=== PATIENT | female | born 1960 | race Caucasian/White ===

== ENCOUNTER → 2020-04-24 13:05 | Outpatient (BNVA) | payer OTHER, SELFPAY | PROVIDERS: PCP Internal Medicine; Visit Provider Urology | DX: Z76.89 Persons encountering health services in other specified circumstances (principal) ==

== ENCOUNTER → 2020-06-03 13:44 | Outpatient (BNVA) | payer OTHER, SELFPAY | PROVIDERS: PCP Internal Medicine; Visit Provider Urology | DX: Z76.89 Persons encountering health services in other specified circumstances (principal) ==

== ENCOUNTER 2020-06-10 15:59 | Outpatient (REF) | payer OTHER, SELFPAY | END 2020-06-10 16:00 | disposition home or self-care (01) | LOC: HO.LNP 15:59 | PROVIDERS: Visit Provider Internal Medicine | DX: Z20.828 Contact with and (suspected) exposure to other viral communicable diseases (principal) | CPT/HCPCS: U0003 ==

== ENCOUNTER 2020-06-17 06:28 | Day surgery (SDC) | payer OTHER, SELFPAY ==
[2020-06-09 20:56] VITALS: BMI 36.6
--- NOTE | 2020-06-16 10:06 | HO.ANESPROP2 ---
Documented by User: Gin Rehman 06/16/20 10:11 HPI - Anesthesia Eval Consult details Narrative: 59yo F for Pubovaginal Sling Covid exposure. Test 06/10/20 pending [facility] Past Medical History Medical History Anxiety Asthma Depression GERD (gastroesophageal reflux disease) HTN (hypertension) Surgical History Surgical History History of appendectomy History of endometrial ablation Social History Social History Smoking Status: Never smoker Use of substances other than those prescribed or required for medical reasons: No Advance Directives: No Advance Directives Information Provided: No Advance Directives on File: No Meds Allergies Allergy/AdvReac Type Severity Reaction Status Date / Time No Known Allergies Allergy Verified 06/09/20 20:55 [No Known Allergies*] Home Medications Medication Instructions Recorded Confirmed Type bupropion HCl 300 mg 24 hr tablet, 300 mg PO DAILY 06/03/20 06/09/20 History extended release irbesartan 75 mg tablet 37.5 mg PO DAILY 06/03/20 06/09/20 History lorazepam 0.5 mg tablet 0.5 mg PO BEDTIME PRN 06/03/20 06/09/20 History montelukast 10 mg tablet 10 mg PO DAILY 06/03/20 06/09/20 History omeprazole 20 mg capsule,delayed 20 mg PO DAILY 06/03/20 06/09/20 History release Exam Exam Date and Time: June 16, 2020 1006 Height,Weight and Vital Signs: Height 5 ft 4 in Weight 96.615 kg Narrative Narrative: ECHO 01/2020: Nml study Assessment and Plan Assessment Anesthesia Assessment: Chart Reviewed Documented by User: Karen Reyez 06/17/20 07:58 [facility] Past Medical History Medical History Anxiety Asthma Depression GERD (gastroesophageal reflux disease) HTN (hypertension) Surgical History Surgical History History of appendectomy History of endometrial ablation Social History Social History Smoking Status: Never smoker Use of substances other than those prescribed or required for medical reasons: No Advance Directives: No Advance Directives Information Provided: No Advance Directives on File: No Meds Allergies Allergy/AdvReac Type Severity Reaction Status Date / Time No Known Allergies Allergy Verified 06/09/20 20:55 [No Known Allergies*] Home Medications Medication Instructions Recorded Confirmed Type bupropion HCl 300 mg 24 hr tablet, 300 mg PO DAILY 06/03/20 06/09/20 History extended release irbesartan 75 mg tablet 37.5 mg PO DAILY 06/03/20 06/09/20 History lorazepam 0.5 mg tablet 0.5 mg PO BEDTIME PRN 06/03/20 06/09/20 History montelukast 10 mg tablet 10 mg PO DAILY 06/03/20 06/09/20 History omeprazole 20 mg capsule,delayed 20 mg PO DAILY 06/03/20 06/09/20 History release Exam Airway Mallampati Class: II TM Dist: >3cm Neck ROM: Full Assessment and Plan Assessment Anesthesia Assessment: Anesthesia Plan Discussed and Chart Reviewed Final Anesthetic Review NPO: Yes ASA Class: II Final Preanesthetic Review: No Changes in Pt Med Stat, Meds/Allgs Chart Reviewed, Consent Obtained/Reviewed and Anes Risks/Benef Reviewed Patient Risk: Low Procedure Risk: Low Assessment/Block/Sedation in SS: Assess/Block/Sedation-SS Anesthetic Plan Anesthetic Plan: MAC: Disposition: Standard PACU
[2020-06-17] VITALS (13 sets, daily range): BP systolic 97–124; BP diastolic 48–77; PULSE 64–88; RESP 16; TEMP 36.1–37.2; O2SAT 93–98
--- NOTE | 2020-06-17 07:29 | MHC.SHP ---
Pre-Procedural Eval Section A The patient is an INPATIENT: No The History & Physical has been completed within 30 days and I have reviewed it.: Yes Section B Chief Complaint: stress incontinence Allergies: Allergies Allergy/AdvReac Type Severity Reaction Status Date / Time No Known Allergies Allergy Verified 06/09/20 20:55 [No Known Allergies*] Plan Diagnosis/Plan: Unchanged I have reviewed the history and physical and performed a pertinent physical examination on my patient. No changes have occurred unless specified.
[2020-06-17] MEDS: Lactated Ringers 1,000 ML 100 ML IVCONT (07:33)
--- NOTE | 2020-06-17 08:40 | PM.OP ---
Brief Operative Note Date of Service: 06/17/20 Pre-op diagnosis: VENUS Procedure: pv sling mesh Implants: mesh sling Surgeon: Alfredo Blanco III, MD Anesthesia: GLMA Estimated blood loss (mL): 30 Pathology: none sent Condition: stable Disposition: same day
[2020-06-17] MEDS: Acetaminophen 325 MG TABLET 650 MG PO (09:08)
[2020-06-17] MEDS: oxyCODONE HCl Immed Release 5 MG TABLET PO ×2 (09:09→12:31)
[2020-06-17] MEDS: fentaNYL citrate/PF 100 MCG/2 ML VIAL 50 MCG IVPUSH (09:14)
--- NOTE | 2020-06-17 11:30 | HO.POSTANES ---
Post Anesthesia Evaluation Post Anesthesia Evaluation Vital Signs: Vital Signs Temp Pulse Resp BP Pulse Ox 06/17/20 10:35 66 16 118/75 98 06/17/20 10:20 64 16 111/75 97 06/17/20 09:49 97 F 65 16 108/60 97 06/17/20 09:35 73 16 107/50 L 95 06/17/20 09:19 69 16 97/52 L 93 06/17/20 09:14 70 16 101/58 L 95 06/17/20 09:05 72 16 113/58 L 95 06/17/20 09:00 75 16 105/48 L 95 06/17/20 08:55 72 16 97/54 L 95 06/17/20 08:50 97.9 F 70 16 103/52 L 95 06/17/20 07:08 99.0 F 88 16 117/71 96 Anesthesia: General LMA Mental Status: Awake Pain Control: Satisfactory Nausea/Vomiting: None Hydration: Adequate Anesthesia-Related Issues: No Anes. Related Issues
--- NOTE | 2020-10-03 10:42 | OP_ITS ---
SURGEON: Alfredo Blanco III, MD PREOPERATIVE DIAGNOSIS: Female stress urinary incontinence. POSTOPERATIVE DIAGNOSIS: Female stress urinary incontinence. PROCEDURE PERFORMED: Pubovaginal sling with mesh. ESTIMATED BLOOD LOSS: 30 mL. COMPLICATIONS: None. ANESTHESIA: General LMA. ASSISTANTS: SPECIMENS: DRAINS: None. PROCEDURE IN DETAIL: As follows, the patient was taken to the operating room. After adequate anesthesia was obtained, a time-out done demonstrating correct patient, correct procedure. The patient was placed in dorsal lithotomy position in slight Trendelenburg, had vaginal weighted speculum placed as well as a Mcalester retractor and a Gama catheter. At this point, local was injected to the anterior vaginal wall and then a midline incision was made and carried out laterally to but not through endopelvic fascia. Stab wounds were made suprapubically and under direct palpation of surgeon's finger, passers were passed from the stab wounds on the abdomen into the patient's vaginal incision. At this point, the Gama catheter was removed. The patient underwent flexible cystoscopy with retroflexion and no damage or penetration. The patient's bladder was identified. The patient had a Gama catheter placed, it was draining clear for the rest of the case. The patient then had the sling elevated into place with approximately 0.5 cm between the sling and the urethra. The patient had the sling truncated below the skin level. All incisions were closed. Vaginal pack placed. Gama catheter was removed at the end of the case. She tolerated the procedure well without any complications. MD JUAN JOSE Morris III/MODL / [id number]
== END 2020-06-17 12:59 | disposition home or self-care (01) ==
PROVIDERS: PCP Internal Medicine; Visit Provider Urology
PROC: (CPT 57288; principal; 2020-06-17 08:20)
DX: N39.3 Stress incontinence (female) (male) (principal); I10 Essential (primary) hypertension; J45.909 Unspecified asthma, uncomplicated; F32.9 Major depressive disorder, single episode, unspecified; Z79.899 Other long term (current) drug therapy
CPT/HCPCS: 57288; C1772; J1100; J1580; J1885; J2250; J2405; J3010

== ENCOUNTER → 2020-06-18 09:52 | Outpatient (BNVA) | payer OTHER, SELFPAY | PROVIDERS: PCP Internal Medicine; Visit Provider Urology | DX: Z76.89 Persons encountering health services in other specified circumstances (principal) ==

== ENCOUNTER → 2020-07-04 09:58 | Outpatient (BNVA) | payer OTHER, SELFPAY | PROVIDERS: Visit Provider Urology | DX: N39.3 Stress incontinence (female) (male) (principal) | CPT/HCPCS: 51798; 81002 ==

== ENCOUNTER 2020-08-01 13:58 | Outpatient (REF) | payer OTHER, SELFPAY ==
[2020-08-02 14:00] LABS: BV Int Neg Control Negative (Negative); BV Int Pos Control Positive (Positive)
== END 2020-08-01 13:59 | disposition home or self-care (01) ==
LOC: HO.LAB 13:58
PROVIDERS: Visit Provider Advanced Practice Midwife
DX: N76.0 Acute vaginitis (principal); B37.9 Candidiasis, unspecified
CPT/HCPCS: 87480; 87510; 87660

== ENCOUNTER 2020-09-15 16:54 | Outpatient (REF) | payer OTHER, SELFPAY ==
[2020-09-15 18:24] LABS: Glucose Urine UA NEG (NEG); Leukocyte Esterase Urine NEG (NEG); Nitrite Urine NEG (NEG); Specific Gravity - Urine 1.015 (1.005-1.025); Urine Blood NEG (NEG); Urine Ketones NEG (NEG); Urine Protein NEG (NEG-TRACE)
[2020-09-15 18:28] LABS: Appearance Urine CLEAR; Color Urine STRAW
[2020-09-15 18:40] LABS: Bacteria Urine TRACE /LPF; RBC Urine 0 /HPF (0); Squamous Epithelial Cell Urine TRACE /LPF; WBC Urine 0 /HPF (0-4)
== END 2020-09-15 16:55 | disposition home or self-care (01) ==
LOC: HO.LAB 16:54
PROVIDERS: PCP Internal Medicine; Visit Provider Urology
DX: N39.3 Stress incontinence (female) (male) (principal)
CPT/HCPCS: 81001; 87086

== ENCOUNTER → 2020-09-18 14:57 | Outpatient (BNVA) | payer OTHER, SELFPAY | PROVIDERS: PCP Internal Medicine; Visit Provider Urology | DX: R33.9 Retention of urine, unspecified (principal) | CPT/HCPCS: 51700 ==

== ENCOUNTER → 2020-09-23 12:52 | Outpatient (BNVA) | payer OTHER, SELFPAY | PROVIDERS: PCP Internal Medicine; Visit Provider Urology | DX: R33.9 Retention of urine, unspecified (principal) | CPT/HCPCS: 51700; 51798 ==

== ENCOUNTER → 2020-10-06 09:00 | Outpatient (BNVA) | payer OTHER, SELFPAY | PROVIDERS: PCP Internal Medicine; Visit Provider Obstetrics & Gynecology ==

== ENCOUNTER 2020-10-11 10:57 | Outpatient (REF) | payer OTHER, SELFPAY ==
--- NOTE | ~2020-10-11 | MM_ITS ---
EXAMINATION: MM SCREENING DIGITAL BREAST TOMOSYNTHESIS, BILATERAL CLINICAL INFORMATION: Screening. Asymptomatic. The lifetime risk of breast cancer based on the Tyrer-Cuzick Model is 13%. COMPARISON: Mammography: 07/02/2019, 04/05/2018, 06/18/2016 TECHNIQUE: Digital breast tomosynthesis is performed in both the craniocaudal and mediolateral oblique views along with computer-aided detection (CAD). Synthesized 2D images are generated from the tomosynthesis. FINDINGS: The breasts are almost entirely fatty (ACR BI-RADS breast composition Category a). There are no significant masses, abnormal calcifications, or other abnormalities. Background stromal densities are stable. The axilla and skin contours are unremarkable. MM/MM tomosynthesis screening BI IMPRESSION: No mammographic evidence of malignancy. ASSESSMENT: BI-RADS 1: Negative RECOMMENDATION: Routine annual mammography screening. This patient's information was entered into a reminder system with a target due date for their next mammogram.
== END 2020-10-11 10:58 | disposition home or self-care (01) ==
LOC: HO.MAMMO 10:57
PROVIDERS: PCP Internal Medicine; Visit Provider Obstetrics & Gynecology
DX: Z12.31 Encounter for screening mammogram for malignant neoplasm of breast (principal)
CPT/HCPCS: 77063; 77067

== ENCOUNTER → 2020-11-04 13:59 | Outpatient (BNVA) | payer OTHER, SELFPAY | PROVIDERS: PCP Internal Medicine; Visit Provider Urology | DX: R33.9 Retention of urine, unspecified (principal); R39.12 Poor urinary stream | CPT/HCPCS: 51798 ==

== ENCOUNTER 2020-11-16 15:32 | Emergency (ER) | payer OTHER, SELFPAY ==
[2020-11-16 15:37] VITALS: BP 157/89; PULSE 117; RESP 18; TEMP 36.9; O2SAT 97; BMI 36.6
[2020-11-16 16:06] LABS: Appearance Urine CLEAR; Color Urine YELLOW; Glucose Urine UA NEG (NEG); Leukocyte Esterase Urine NEG (NEG); Nitrite Urine NEG (NEG); Specific Gravity - Urine <= 1.005 (1.005-1.025); Urine Blood NEG (NEG); Urine Ketones NEG (NEG); Urine Protein NEG (NEG-TRACE)
== END 2020-11-16 20:59 | disposition left against medical advice (07) ==
LOC: HO.ED 20:37
PROVIDERS: Emergency Provider Emergency Medicine; PCP Internal Medicine
DX: R33.9 Retention of urine, unspecified (principal)
CPT/HCPCS: 81003; 99282; 99283

== ENCOUNTER 2020-11-24 12:12 | Day surgery (SDC) | payer OTHER, SELFPAY ==
--- NOTE | 2020-11-20 13:54 | HO.ANESPROP2 ---
Documented by User: Gin Rehman 11/20/20 13:55 HPI - Anesthesia Eval Consult details Narrative: 59yo F for cystoscopy with Lysis of Adhesions pubovaginal sling s/p PV sling 06/2020 with GA-LMA 3 PMFSH Active Problems Active Problems: All Active Problems (Updated 11/06/20 @ 16:01 by Kedar Knapp MD) Weak urinary stream (Acute) Well woman exam (Acute) Urinary retention with incomplete bladder emptying (Acute) Acute vaginitis (Acute) Stress incontinence in female (Acute) Past Medical History Medical History Anxiety Asthma Depression GERD (gastroesophageal reflux disease) HTN (hypertension) Surgical History Surgical History History of appendectomy History of endometrial ablation Social History Social History Alcohol intake: never Patient Tobacco Use Status: Never used Tobacco Use of substances other than those prescribed or required for medical reasons: No Are you DNR?: No Advance Directives: No Advance Directives Information Provided: Yes Gender identity: female Meds Allergies Allergy/AdvReac Type Severity Reaction Status Date / Time No Known Allergies Allergy Verified 11/24/20 12:25 [No Known Allergies*] Home Medications Medication Instructions Recorded Confirmed Last Taken Type bupropion HCl 300 mg 24 hr tablet, 300 mg PO DAILY 06/03/20 06/09/20 06/17/20 04:30 History extended release irbesartan 75 mg tablet 37.5 mg PO DAILY 06/03/20 06/09/20 06/17/20 04:30 History lorazepam 0.5 mg tablet 0.5 mg PO BEDTIME PRN 06/03/20 06/09/20 Unknown History montelukast 10 mg tablet 10 mg PO DAILY 06/03/20 06/09/20 Unknown History omeprazole 20 mg capsule,delayed 20 mg PO DAILY 06/03/20 06/09/20 06/17/20 04:30 History release albuterol sulfate 90 mcg/actuation 2 puff INHALATION Q4H PRN 07/04/20 Unknown History aerosol inhaler Exam Exam Date and Time: November 20, 2020 1354 Narrative Narrative: ECHO 01/2020: Nml study Assessment and Plan Assessment Anesthesia Assessment: Chart Reviewed Documented by User: Geraldine Bauer 11/24/20 13:04 PMF Past Medical History Medical History Anxiety Asthma Depression GERD (gastroesophageal reflux disease) HTN (hypertension) Family History Family history of problems with anesthesia: No Surgical History Surgical History History of appendectomy History of endometrial ablation History of Problems with Anesthesia: No Social History Social History Alcohol intake: never Patient Tobacco Use Status: Never used Tobacco Use of substances other than those prescribed or required for medical reasons: No Are you DNR?: No Advance Directives: No Advance Directives Information Provided: Yes Gender identity: female Meds Allergies Allergy/AdvReac Type Severity Reaction Status Date / Time No Known Allergies Allergy Verified 11/24/20 12:25 [No Known Allergies*] Home Medications Medication Instructions Recorded Confirmed Last Taken Type bupropion HCl 300 mg 24 hr tablet, 300 mg PO DAILY 06/03/20 06/09/20 06/17/20 04:30 History extended release irbesartan 75 mg tablet 37.5 mg PO DAILY 06/03/20 06/09/20 06/17/20 04:30 History lorazepam 0.5 mg tablet 0.5 mg PO BEDTIME PRN 06/03/20 06/09/20 Unknown History montelukast 10 mg tablet 10 mg PO DAILY 06/03/20 06/09/20 Unknown History omeprazole 20 mg capsule,delayed 20 mg PO DAILY 06/03/20 06/09/20 06/17/20 04:30 History release albuterol sulfate 90 mcg/actuation 2 puff INHALATION Q4H PRN 07/04/20 Unknown History aerosol inhaler Exam Height,Weight and Vital Signs: Vital Signs Temp Pulse Resp BP Pulse Ox 11/24/20 12:35 96.9 F 106 H 20 124/77 97 Airway Mallampati Class: II TM Dist: >3cm Neck ROM: Full Heart: RRR Lungs: CTAB Assessment and Plan Assessment Anesthesia Assessment: Anesthesia Plan Discussed and Chart Reviewed Final Anesthetic Review NPO: Yes ASA Class: II Final Preanesthetic Review: No Changes in Pt Med Stat, Meds/Allgs Chart Reviewed, Consent Obtained/Reviewed and Anes Risks/Benef Reviewed Patient Risk: Intermediate Procedure Risk: Low Assessment/Block/Sedation in SS: Assess/Block/Sedation-SS Anesthetic Plan Anesthetic Plan: GA Disposition: Standard PACU
--- NOTE | 2020-11-24 12:25 | MHC.SHP ---
Pre-Procedural Eval Section A The patient is an INPATIENT: No Changes since office visit: No Cold of Flu in the past 2 weeks, No New Medical Problems, No Changes in Medication and No Patient answered all questions The History & Physical has been completed within 30 days and I have reviewed it.: Yes Section B Chief Complaint: retension of urine Allergies: Allergies Allergy/AdvReac Type Severity Reaction Status Date / Time No Known Allergies Allergy Verified 11/24/20 12:25 [No Known Allergies*] Plan Diagnosis/Plan: Unchanged (Cystoscopy with lysis of pubovaginal sling) I have reviewed the history and physical and performed a pertinent physical examination on my patient. No changes have occurred unless specified.
[2020-11-24 12:35] VITALS: BP 124/77; PULSE 106; RESP 20; TEMP 36.1; O2SAT 97; BMI 36.8
[2020-11-24] MEDS: Lactated Ringers 1,000 ML 50 ML IVCONT (12:50)
[2020-11-24] MEDS: levoFLOXacin/D5W 500 MG/100 ML PIGGYBACK 100 MG IV (12:50)
--- NOTE | 2020-11-24 14:08 | P.OP_ITS ---
Operative Note Operative Note Date of Service: 11/24/20 Narrative: PreOperative Diagnosis: Incomplete bladder emptying following pubovaginal sling placement Post Operative Diagnosis: Incomplete bladder emptying following pubovaginal sling placement Procedure: Lysis of pubovaginal sling Surgeon: Dr Kedar Knapp Anesthesia: General Indications for procedure: This is a 59-year-old female. Pubovaginal sling procedure performed approximately 6 months ago. Minimal issues initially. Subsequently noticed weak stream and high residual under PVR. Recommendation to release sling. Risks and benefits including those related to incontinence been discussed. Procedure: After informed consent was verified the patient was brought to the operating r oom and placed in a supine position. Anesthesia was administered per protocol. Patient was placed in a modified dorsal lithotomy position prepped and draped in sterile fashion. She was placed in mild Trendelenburg position. A weighted speculum was placed. You could see mucosa up tenting in the mid urethral position. Submucosal injection of local anesthetic in the midline was performed. Using a 15 blade a 1/2 cm incision in the midline was developed. Flaps were elevated using the [place] with hooks. With careful dissection the sling was encountered. Off to the left side the sling was more easily dissected. The sling was isolated and cut in this position. After the release of the sling in mucosal incision was closed using a running 3- 0 Vicryl suture. Minimal bleeding was encountered. No packing was used. Pathology: None Drains: None
[2020-11-24 14:10] VITALS: BP 105/63; PULSE 60; RESP 12; TEMP 36.2; O2SAT 99
[2020-11-24 14:15] VITALS: BP 109/76; PULSE 75; RESP 14; O2SAT 95
[2020-11-24 14:20] VITALS: BP 111/87; PULSE 74; RESP 13; O2SAT 96
[2020-11-24 14:25] VITALS: BP 122/75; PULSE 76; RESP 16; O2SAT 94
[2020-11-24 14:40] VITALS: BP 124/77; PULSE 72; RESP 16; TEMP 36.7; O2SAT 96
[2020-11-24] MEDS: oxyCODONE HCl Immed Release 5 MG TABLET PO (14:56)
[2020-11-24] MEDS: Acetaminophen 325 MG TABLET 650 MG PO (14:57)
[2020-11-24] MEDS: ondansetron HCL 4 MG/2 ML VIAL IVPUSH (15:00)
== END 2020-11-24 16:25 | disposition home or self-care (01) ==
PROVIDERS: PCP Internal Medicine; Visit Provider Urology
PROC: 0TJB8ZZ Inspection of Bladder, Via Natural or Artificial Opening Endoscopic (ICD-10-PCS; CPT 52000; principal; 2020-11-24 14:00)
DX: R33.8 Other retention of urine (principal); R39.12 Poor urinary stream; N39.43 Post-void dribbling; I10 Essential (primary) hypertension; F32.9 Major depressive disorder, single episode, unspecified; Z79.899 Other long term (current) drug therapy
CPT/HCPCS: 57287; J1100; J1956; J2250; J2405; J3010

== ENCOUNTER 2020-12-19 17:13 | Outpatient (REF) | payer OTHER, SELFPAY ==
--- NOTE | ~2020-12-19 | XR_ITS ---
EXAMINATION: XR KNEE, RIGHT CLINICAL INFORMATION: Right knee pain. COMPARISON: None TECHNIQUE: Four views of the right knee. FINDINGS: Chronic lateral subluxation of the patella with severe joint space narrowing and bony remodeling. Mild medial and lateral compartment joint space narrowing. Prominent tricompartmental marginal osteophytes. Unfused osteophyte versus accessory ossicle superior to the patella. [id number] joint effusion. No acute fracture. 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 Unfused osteophyte versus loose body superior to the patella. Moderate medial and lateral compartment osteoarthritis. [id number]-[id number] joint effusion.
[2020-12-19 17:46] LABS: MANUAL DIFF FLAG NO
[2020-12-19 17:51] LABS: Basophils Percent Auto 0.4 % (0-2); Eosinophils Absolute Auto 0.2 X10*3/uL (0.0-0.4); Eosinophils Percent Auto 1.9 % (0-4); Hematocrit 43.2 % (37-47); Hemoglobin 13.8 g/dl (12.0-16.0); Imm Gran Abs Auto 0.04 X10*3/uL (0.00-0.03); Imm Gran Pct Auto 0.4 % (0.0-0.4); Lymphocytes Percent Auto 21.4 % (20-40); Mean Corpuscular HGB Conc 31.9 g/dl (31.0-35.0); Mean Corpuscular Hemoglobin 27.9 pg (27.0-33.0); Mean Corpuscular Volume 87.3 fL (80-98); Monocytes Absolute Auto 0.5 X10*3/uL (0.1-1.2); Monocytes Percent Auto 5.5 % (2-11); Neutrophils Absolute Auto 6.7 X10*3/uL (2.0-8.3); Neutrophils Percent Auto 70.4 % (45-73); Platelet Count 360 X10*3/uL (160-400); Red Blood Count 4.95 X10*6/uL (4.20-5.50); Red Cell Distribution Width 12.7 % (11.0-16.0); White Blood Count 9.5 X10*3/uL (4.8-10.8)
[2020-12-19 18:16] LABS: Anion Gap 13 (12-20); Blood Urea Nitrogen 11 mg/dL (9-16); C Reactive Protein 0.89 mg/dL (< or = 0.50); Calcium 9.7 mg/dL (8.4-10.2); Carbon Dioxide 25 mmol/L (22-29); Chloride 106 mmol/L (96-108); Estimated Glomerular Filt Rate 57; Glucose Random 124 mg/dL (60-115); Potassium 4.3 mmol/L (3.3-5.1); Sodium 140 mmol/L (135-145); Uric Acid 6.5 mg/dL (2.4-5.7)
== END 2020-12-19 17:14 | disposition home or self-care (01) ==
LOC: HO.XRAY 17:13
PROVIDERS: PCP Internal Medicine; Visit Provider Internal Medicine
DX: M25.561 Pain in right knee (principal); I10 Essential (primary) hypertension; J45.909 Unspecified asthma, uncomplicated
CPT/HCPCS: 36415; 73564; 80048; 84550; 85025; 86140

== ENCOUNTER → 2020-12-30 09:11 | Outpatient (BNVA) | payer OTHER, SELFPAY | PROVIDERS: Visit Provider Urology | DX: R33.9 Retention of urine, unspecified (principal) | CPT/HCPCS: 51798 ==

== ENCOUNTER → 2020-12-31 13:07 | Outpatient (BNVA) | payer OTHER, SELFPAY | PROVIDERS: Visit Provider Orthopaedic Surgery | DX: M17.11 Unilateral primary osteoarthritis, right knee (principal) | CPT/HCPCS: 20610; J1040 ==

== ENCOUNTER 2021-04-22 | Outpatient (REF) | payer OTHER, SELFPAY ==
[2021-04-22 06:53] LABS: Hematocrit 30.1 % (37.0-47.0); Hemoglobin 9.5 g/dl (12.0-16.0); Mean Corpuscular HGB Conc 31.6 g/dl (31.0-35.0); Mean Corpuscular Hemoglobin 28.5 pg (27.0-33.0); Mean Corpuscular Volume 90.4 fL (80.0-98.0); Mean Platelet Volume 9.6 fL (9.4-12.3); Platelet Count 296 X10*3/uL (160-400); Red Blood Count 3.33 X10*6/uL (4.20-5.50); Red Cell Distribution Width 13.1 % (11.0-16.0); White Blood Count 7.6 X10*3/uL (4.8-10.8)
[2021-04-22 06:57] LABS: INTERNATIONAL NORM RATIO 1.5 (0.9-1.1); Prothrombin Time 17.2 SEC (9.9-13.0)
== END 2021-04-22 00:01 | disposition home or self-care (01) ==
LOC: HO.MMNH1L
PROVIDERS: Visit Provider Family Medicine
DX: I10 Essential (primary) hypertension (principal); Z96.659 Presence of unspecified artificial knee joint
CPT/HCPCS: 36415; 85027; 85610

== ENCOUNTER 2021-04-24 13:48 | Outpatient (REF) | payer OTHER, SELFPAY ==
[2021-04-24 14:00] LABS: Hematocrit 31.1 % (37.0-47.0); Mean Corpuscular HGB Conc 32.2 g/dl (31.0-35.0); Mean Corpuscular Volume 90.1 fL (80.0-98.0); Mean Platelet Volume 9.1 fL (9.4-12.3); Platelet Count 363 X10*3/uL (160-400); Red Blood Count 3.45 X10*6/uL (4.20-5.50); Red Cell Distribution Width 13.3 % (11.0-16.0)
[2021-04-24 14:05] LABS: INTERNATIONAL NORM RATIO 1.3 (0.9-1.1); Prothrombin Time 14.5 SEC (9.9-13.0)
[2021-04-24 14:13] LABS: Alanine Aminotransferase 81 U/L (0-31); Albumin Level 3.3 g/dL (3.5-5.0); Alkaline Phosphatase 214 U/L (39-117); Anion Gap 12 (12-20); Aspartate Amino Transferase 46 U/L (5-31); Bilirubin Total 0.8 mg/dL (0.0-1.0); Blood Urea Nitrogen 8 mg/dL (9-16); Calcium 8.3 mg/dL (8.4-10.2); Carbon Dioxide 27 mmol/L (22-29); Chloride 104 mmol/L (96-108); Estimated Glomerular Filt Rate > 60; Glucose Random 116 mg/dL (60-115); Potassium 3.9 mmol/L (3.3-5.1); Sodium 139 mmol/L (135-145); Total Protein 5.9 g/dL (6.5-8.0)
== END 2021-04-24 13:49 | disposition home or self-care (01) ==
LOC: HO.MMNH1L 13:48
PROVIDERS: Visit Provider Family Medicine
DX: Z96.651 Presence of right artificial knee joint (principal)
CPT/HCPCS: 36415; 80053; 85027; 85610

== ENCOUNTER 2021-04-27 07:18 | Outpatient (REF) | payer OTHER, SELFPAY ==
[2021-04-27 07:41] LABS: Hematocrit 30.7 % (37.0-47.0); Hemoglobin 9.7 g/dl (12.0-16.0); Mean Corpuscular HGB Conc 31.6 g/dl (31.0-35.0); Mean Corpuscular Hemoglobin 28.9 pg (27.0-33.0); Mean Corpuscular Volume 91.4 fL (80.0-98.0); Mean Platelet Volume 9.4 fL (9.4-12.3); Platelet Count 351 X10*3/uL (160-400); Red Blood Count 3.36 X10*6/uL (4.20-5.50); Red Cell Distribution Width 13.7 % (11.0-16.0); White Blood Count 6.7 X10*3/uL (4.8-10.8)
[2021-04-27 07:45] LABS: INTERNATIONAL NORM RATIO 2.4 (0.9-1.1); Prothrombin Time 27.4 SEC (9.9-13.0)
[2021-04-27 07:54] LABS: Anion Gap 11 (12-20); Blood Urea Nitrogen 6 mg/dL (9-16); Calcium 8.4 mg/dL (8.4-10.2); Carbon Dioxide 28 mmol/L (22-29); Chloride 107 mmol/L (96-108); Estimated Glomerular Filt Rate > 60; Glucose Random 96 mg/dL (60-115); Potassium 3.6 mmol/L (3.3-5.1); Sodium 142 mmol/L (135-145)
== END 2021-04-27 07:19 | disposition home or self-care (01) ==
LOC: HO.MMNH1L 07:18
PROVIDERS: Visit Provider Family Medicine
DX: Z96.651 Presence of right artificial knee joint (principal)
CPT/HCPCS: 36415; 80048; 85027; 85610

== ENCOUNTER 2021-04-29 | Outpatient (REF) | payer OTHER, SELFPAY ==
[2021-04-29 06:51] LABS: INTERNATIONAL NORM RATIO 2.9 (0.9-1.1); Prothrombin Time 33.5 SEC (9.9-13.0)
== END 2021-04-29 00:01 | disposition home or self-care (01) ==
LOC: HO.MMNH1L
PROVIDERS: Visit Provider Family Medicine
DX: Z96.659 Presence of unspecified artificial knee joint (principal)
CPT/HCPCS: 36415; 85610

== ENCOUNTER 2021-05-04 01:01 | Outpatient (REF) | payer OTHER, SELFPAY | END 2021-05-04 01:02 | disposition home or self-care (01) | LOC: HO.MMNH1L 01:01 | PROVIDERS: Visit Provider Family Medicine | DX: Z13.89 Encounter for screening for other disorder (principal) ==

== ENCOUNTER → 2021-07-30 11:09 | Outpatient (BNVA) | payer OTHER, SELFPAY | PROVIDERS: PCP Internal Medicine; Visit Provider Urology | DX: R33.9 Retention of urine, unspecified (principal) | CPT/HCPCS: 51798 ==

== ENCOUNTER 2021-12-28 16:03 | Outpatient (REF) | payer OTHER, SELFPAY ==
--- NOTE | ~2021-12-28 | MM_ITS ---
EXAMINATION: MM SCREENING DIGITAL BREAST TOMOSYNTHESIS, BILATERAL CLINICAL INFORMATION: Screening. Asymptomatic. The lifetime risk of breast cancer based on the Tyrer-Cuzick Model is 14%. COMPARISON: Mammography: 10/11/2020, 07/02/2019, 04/05/2018 TECHNIQUE: Digital breast tomosynthesis is performed in both the craniocaudal and mediolateral oblique views along with computer-aided detection (CAD). Synthesized 2D images are generated from the tomosynthesis. FINDINGS: The breasts are almost entirely fatty (ACR BI-RADS breast composition Category a). There are no significant masses, abnormal calcifications, or other abnormalities. Background stromal markings are normal. The axilla are unremarkable. MM/MM tomosynthesis screening BI IMPRESSION: No mammographic evidence of malignancy. ASSESSMENT: BI-RADS 1: Negative RECOMMENDATION: Routine annual mammography screening. This patient's information was entered into a reminder system with a target due date for their next mammogram.
== END 2021-12-28 16:04 | disposition home or self-care (01) ==
LOC: HO.MAMMO 16:03
PROVIDERS: Visit Provider Obstetrics & Gynecology
DX: Z12.31 Encounter for screening mammogram for malignant neoplasm of breast (principal)
CPT/HCPCS: 77063; 77067

== ENCOUNTER → 2022-01-07 10:40 | Outpatient (BNVA) | payer OTHER, SELFPAY | PROVIDERS: PCP Internal Medicine; Visit Provider Urology | DX: N94.9 Unspecified condition associated with female genital organs and menstrual cycle (principal) | CPT/HCPCS: 51798 ==

== ENCOUNTER 2022-01-20 11:52 | Outpatient (REF) | payer OTHER, SELFPAY ==
[2022-01-21 06:41] LABS: CT PCR NOT DETECTED (Not Detect.); NG PCR NOT DETECTED (Not Detect.)
== END 2022-01-20 11:53 | disposition home or self-care (01) ==
LOC: HO.LAB 11:52
PROVIDERS: PCP Internal Medicine; Visit Provider Obstetrics & Gynecology
DX: Z11.3 Encounter for screening for infections with a predominantly sexual mode of transmission (principal); R10.2 Pelvic and perineal pain
CPT/HCPCS: 81003; 87491; 87591

== ENCOUNTER → 2022-02-04 10:02 | Outpatient (BNVA) | payer OTHER, SELFPAY | PROVIDERS: Visit Provider Urology | DX: R33.9 Retention of urine, unspecified (principal); N94.9 Unspecified condition associated with female genital organs and menstrual cycle; N39.3 Stress incontinence (female) (male) | CPT/HCPCS: 51798 ==

== ENCOUNTER 2022-03-12 15:29 | Outpatient (REF) | payer OTHER, SELFPAY ==
--- NOTE | ~2022-03-12 | US_ITS ---
EXAMINATION: US PELVIS CLINICAL INFORMATION: Pelvic and perineal pain COMPARISON: Previous pelvic ultrasound January 2018 TECHNIQUE: Ultrasound of the pelvis is performed using both transabdominal and transvaginal transducers along with Doppler. Transvaginal imaging is performed due to inadequate visualization transabdominally. FINDINGS: The uterus is anteverted and measures 8.5 x 3.2 x 4.9 cm in dimension. No focal uterine lesion is seen. Endometrial thickness is thickened for postmenopausal patient measuring 1 cm. There are nabothian cysts in the cervix. The ovaries are not seen. There is no fluid in the pelvis. US/US pelvic and transvaginal IMPRESSION: Thickened endometrium for a postmenopausal patient measuring 1 cm. Ovaries not seen.
== END 2022-03-12 15:30 | disposition home or self-care (01) ==
LOC: HO.US 15:29
PROVIDERS: Visit Provider Obstetrics & Gynecology
DX: R10.2 Pelvic and perineal pain (principal)
CPT/HCPCS: 76830; 76856

== ENCOUNTER 2022-04-19 15:33 | Outpatient (REF) | payer OTHER, SELFPAY ==
[2022-04-19 15:52] LABS: MANUAL DIFF FLAG NO
[2022-04-19 16:12] LABS: Basophils Absolute Auto 0.1 X10*3/uL (0.0-0.2); Basophils Percent Auto 0.7 % (0-2); Eosinophils Absolute Auto 0.2 X10*3/uL (0.0-0.4); Hematocrit 44.5 % (37.0-47.0); Hemoglobin 14.3 g/dl (12.0-16.0); Imm Gran Abs Auto 0.03 X10*3/uL (0.00-0.03); Imm Gran Pct Auto 0.4 % (0.0-0.4); Lymphocytes Absolute Auto 1.9 X10*3/uL (1.2-4.9); Lymphocytes Percent Auto 25.3 % (20-40); Mean Corpuscular HGB Conc 32.1 g/dl (31.0-35.0); Mean Corpuscular Volume 87.1 fL (80.0-98.0); Monocytes Absolute Auto 0.5 X10*3/uL (0.1-1.2); Monocytes Percent Auto 6.1 % (2-11); Neutrophils Percent Auto 64.5 % (45-73); Platelet Count 324 X10*3/uL (160-400); Red Blood Count 5.11 X10*6/uL (4.20-5.50); Red Cell Distribution Width 12.4 % (11.0-16.0); White Blood Count 7.7 X10*3/uL (4.8-10.8)
[2022-04-19 16:43] LABS: Alanine Aminotransferase 25 U/L (0-31); Alkaline Phosphatase 100 U/L (39-117); Anion Gap 13 (12-20); Aspartate Amino Transferase 17 U/L (5-31); Bilirubin Total 0.3 mg/dL (0.0-1.0); Blood Urea Nitrogen 13 mg/dL (9-16); C Reactive Protein 0.59 mg/dL (< or = 0.50); Calcium 9.3 mg/dL (8.4-10.2); Carbon Dioxide 25 mmol/L (22-29); Chloride 106 mmol/L (96-108); Estimated Glomerular Filt Rate > 60; Glucose Random 119 mg/dL (60-115); Potassium 4.2 mmol/L (3.3-5.1); Sodium 140 mmol/L (135-145); Total Protein 7.4 g/dL (6.5-8.0)
== END 2022-04-19 15:34 | disposition home or self-care (01) ==
LOC: HO.LAB 15:33
PROVIDERS: Visit Provider Internal Medicine
DX: I10 Essential (primary) hypertension (principal); K21.9 Gastro-esophageal reflux disease without esophagitis; R30.0 Dysuria
CPT/HCPCS: 36415; 80053; 85025; 86140

== ENCOUNTER → 2022-07-23 13:30 | Outpatient (BNVA) | payer OTHER, SELFPAY | PROVIDERS: PCP Internal Medicine; Visit Provider Nurse Practitioner Family | DX: N39.3 Stress incontinence (female) (male) (principal); R33.9 Retention of urine, unspecified | CPT/HCPCS: 51798 ==

== ENCOUNTER 2022-08-05 16:57 | Outpatient (REF) | payer OTHER, SELFPAY ==
--- NOTE | ~2022-08-05 | XR_ITS ---
EXAMINATION: XR CERVICAL SPINE CLINICAL INFORMATION: Neck pain. COMPARISON: None TECHNIQUE: 6 views of the cervical spine, inclusive of flexion and extension views, were obtained. FINDINGS: There is mild straightening of cervical lordosis. The vertebral heights and alignment is normal. There is loss of C5-C6 and C6-C7 disc heights with mild ventral spondylosis. The rest of the disc heights are normal. The craniovertebral junction and the C1-C2 alignment is normal. There is C5-C6 and C6-C7 disc level bilateral uncovertebral hypertrophic changes narrowing the neural foramina. Findings are slightly more prominent on the right. The neural foramina are widely patent. The prevertebral soft tissues are normal. XR/XR cervical spine min 6V IMPRESSION: Degenerative disc changes with ventral spondylosis C5-C6 and C6-C7 disc levels. There is moderate narrowing of right neural foramina at these disc levels. No visible acute fracture or dislocation seen.
== END 2022-08-05 16:58 | disposition home or self-care (01) ==
LOC: HO.XRAY 16:57
PROVIDERS: PCP Internal Medicine; Visit Provider Internal Medicine
DX: M54.2 Cervicalgia (principal)
CPT/HCPCS: 72052

== ENCOUNTER 2022-08-09 08:00 | Outpatient (RCR) | payer OTHER, SELFPAY ==
[2022-06-03 13:08] VITALS: BP 130/79; PULSE 100
--- NOTE | 2022-06-03 13:53 | MHC.PT.EP ---
[facility] [place] Office [place] Office [place] Office [address] Dionne Ojeda [address] [phone] F: [phone] F: [phone] F: [phone] F: [phone] Physical Therapy Plan of Care Date of Evaluation: Date of Surgery: NA Diagnosis: Sciatica, L side Assessment: Joana is a 61 year old female who is referred to PT for sciatica L side . She reports of having sudden onset of pain in L SI region about 6 months back. She also reports of having tingling and numbess in L LE. She denies having any trauma or falls. On PT examination she presented with 5/10 pain with standing and walking, presented with decreased trunk ROM, decreased muscle strength, altered posture, altered pelvic symmetry and impaired gait. She is independent with all ADLs but has pain with them and takes longer to complete them. She would benefit from skilled PT to address the aforementioned impairments and improve tolerance to functional activities. Frequency and Duration: The patient will be seen 2/week for 5 weeks Short Term Goals: 1. Pt will have 50% decrease in pain which will enable to stand and cook for 30 minutes in 2 weeks. 2. Pt will be able to move her trunk through all planes of motion without pain which will enable her to dress in 3 weeks. 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 Pt will demonstrate an increase in muscle strength by 1 grade which will enable to return to walking without pain in 4 weeks. 2. Pt will be independent with [facility] for symptom management and maintenance following d/c in 5 weeks Treatment Plan: Modalities to reduce pain, spasms and effusion. Manual therapy to restore motion and function. Therapeutic exercise to improve strength and flexibility. Neuromuscular re-education for posture and balance. Therapeutic activities to return to functional activities of daily living. Electronically signed by: Mar Hill PT DPT Please sign and return to therapist. Thank you for your referral.
--- NOTE | 2022-08-09 08:53 | MHC.PT.DC ---
[facility] [place] Office [place] Office [place] Office [address] Dionne Ojeda [address] [phone] F: [phone] F: [phone] F: [phone] F: [phone] Physical Therapy Discharge Report Diagnosis: Sciatica, L side Date of Surgery: NA Date of Evaluation: 06/03/22 Date of Discharge: 08/09/22 Treatments to Date: 10 Cancellations to Date: 1 No Shows to Date: 0 Discharge Status: Achieved Goals Improved Function Independent with HEP Discharge Summary: Joana has completed 10 PT visits. Her L SI pain appears to be secondary to weakness in R LE. She noted improvements in L SI pain with exercises to strengthening R LE. She has made significant improvements and has achieved all goals set for her. She is therefore being d.c from PT today. Joana was in agreement with the plan. Electronically signed by: Mar Hill, PT DPT Please sign and return to therapist. Thank you for your referral.
== END 2022-08-09 08:58 | disposition home or self-care (01) ==
LOC: HO.PT 08:00
PROVIDERS: PCP Internal Medicine; Visit Provider Internal Medicine
DX: M54.32 Sciatica, left side (principal)
CPT/HCPCS: 97110; 97140; 97161; 97530

== ENCOUNTER 2022-08-24 14:15 | Outpatient (REF) | payer OTHER, SELFPAY ==
--- NOTE | ~2022-08-24 | US_ITS ---
EXAMINATION: US EXTRACRANIAL CAROTID DUPLEX, BILATERAL CLINICAL INFORMATION: Dizziness. COMPARISON: None available. TECHNIQUE: Real-time ultrasound and Doppler techniques (integrating B-mode 2-D vascular images, Doppler spectral analysis and color-flow Doppler imaging) were utilized to interrogate the extracranial carotid arteries, the vertebral arteries and proximal subclavian arteries bilaterally. The degree of stenosis is determined by criteria similar to NASCET. FINDINGS: RIGHT SIDE: 1. There is no significant atherosclerotic plaque seen in the bifurcation/proximal ICA region. 2. The common carotid artery PSV proximally is 79 cm/s and distally 71 cm/s. 3. The proximal internal carotid artery velocities are 49 cm/s systolic and 10 cm/s diastolic. 4. The proximal external carotid artery PSV is 85 cm/s. 5. The vertebral artery shows antegrade flow. 6. The subclavian artery waveforms are normal. LEFT SIDE: 1. There is no significant atherosclerotic plaque seen in the bifurcation/proximal ICA region. 2. The common carotid artery PSV proximally is 76 cm/s and distally 72 cm/s. 3. The proximal internal carotid artery velocities are 109 cm/s systolic and 39 cm/s diastolic. 4. The proximal external carotid artery PSV is 98 cm/s. 5. The vertebral artery shows antegrade flow. 6. The subclavian artery waveforms are normal. US/US carotid duplex BI IMPRESSION: 1. RIGHT: Normal right internal carotid artery without atherosclerotic plaque or hemodynamically significant stenosis. 2. LEFT: Normal left internal carotid artery without atherosclerotic plaque or hemodynamically significant stenosis.
== END 2022-08-24 14:16 | disposition home or self-care (01) ==
LOC: HO.US 14:15
PROVIDERS: PCP Internal Medicine; Visit Provider Internal Medicine
DX: M54.2 Cervicalgia (principal); R42 Dizziness and giddiness
CPT/HCPCS: 93880

== ENCOUNTER 2023-04-12 09:38 | Outpatient (AMB) | payer OTHER, SELFPAY ==
--- NOTE | 2023-04-12 09:41 | A.OFFVIS_ITS ---
Intake Vital Signs 04/12/23 09:43 Height 5 ft 4 in Weight 207 lb BMI 35.5 BP 110/70 Intake Visit Reasons: PMB Intake Note: c/o of vaginal bleeding x 6 days Pipe Processor Required: No Information Interpreted: non-clinical & clinical President And Chief Commercial Officer: President And Chief Commercial Officer Present (Cherrie CARLOS) Accompanied by: Self / Same As Patient Allergies No Known Allergies [No Known Allergies*] Allergy (Verified 04/12/23 09:44) Is last menstrual period known: Yes Last menstrual period: 04/03/20 Post menopausal: Yes Patient : No Do you need a note to return to daycare/school/sports/work: Yes (for surgery on tuesday) HPI HPI Comments History of Present Illness Details Presenting after an episode of vaginal bleeding. Pelvic Ultrasound done in 03/27 showed endometrial thickness of 1 cm, last co testing was ascus/HPV negative in 03/2018, colpo biopsy was negative PFS Medical History Stress incontinence GERD (gastroesophageal reflux disease) Depression Anxiety Asthma HTN (hypertension) Surgical History Total knee replacement status History of suburethral sling procedure History of appendectomy History of endometrial ablation Social History Alcohol intake: never Patient Tobacco Use Status: Never used Tobacco Current occupational status: unemployed 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 Gender identity: Female Female Reproductive History Menstrual Age of Menarche: 14 Date of last menstrual period: 04/03/20 Total pregnancies: 2 Full term: 2 Review of Systems Const All systems reviewed & are unremarkable except as noted in HPI and below Card Reports as per HPI and Reports no additional complaints Resp Reports as per HPI and Reports no additional complaints GI Reports as per HPI and Reports no additional complaints Reports as per HPI Physical Exam Vital Signs: Last Vital Signs BP 110/70 04/12/23 09:43 BMI result Body Mass Index 35.5 Const General: cooperative, healthy appearing and comfortable Chest Chest palpation & inspection: normal inspection of the chest and normal p alpation of entire chest wall Breast/axilla inspection: normal inspection of the breasts and normal inspection of the axillae Breast/axilla palpation: normal palpation of the breasts, normal palpation of the axillae and no axillary lymphadenopathy Resp Effort & Inspection: normal respiratory effort Auscultation: clear to auscultation bilaterally Percussion: percussion normal Cardio Palpation: normal PMI Rate: regular rate Rhythm: regular rhythm Heart sounds: no murmurs and no rubs Peripheral pulses: Peripheral pulses 2+ throughout GI Inspection: Yes normal to inspection Palpation (GI): Soft to palpation, nontender, no guarding, not rigid and No hepatosplenomegaly present Percussion: Yes normal to percussion Auscultation: normal bowel sounds Rectal Exam - Female: deferred General: Yes no CVA tenderness External Female Exam: normal external appearance and normal appearance of the urethra Speculum Exam - Vagina: normal appearance of the vagina, normal palpation, no lesions and no masses Speculum Exam - Cervix: normal appearance of the cervix, normal palpation, no lesions, no masses, nontender and Other cervical findings present (Endocervical polyp) Bimanual exam- vagina & uterus: normal bimanual exam, normal palpation, uterine size normal, normal palpation, uterine shape normal, No Cervical tenderness present and non-tender Bimanual Exam- Adnexa, other: normal adnexae Back/Spine/Pelvis Back: no CVA tenderness Assessment & Plan Assessment & Plan (1) Postmenopausal bleeding: Comment: 1 cm endometrial stripe in 03/27 ultrasound Endocervical polyp on exam h/o endo ablation Code(s): N95.0 - Postmenopausal bleeding Plan: Discussed with the patient the differential diagnosis of post menopausal bleeding with normal pelvic exam including but not limited to, endometrial hyperplasia, cancer, polyps and other causes; co testing done, Discussed with the patient the pelvic ultrasound findings done in 03/27, the endometrial stripe thickenss measured by ultrasound was more than 4mm. The negative predictive value, positive predictive value, Sensitivity, specificity of using ultrasound measurement of endometrial stripe to detecting endometrial pathology including hyperplasia , polyp or cancer were discussed with the patient. Recommended to the patient that the next step is an endometrial sampling via hysteroscopy D&C possible polypectomy versus endometrial biopsy to r/o endometrial pathology including hyperplasia or cancer. All the pros and cons risks and benefits of each approach were discussed with the patient, endometrial biopsy being less invasive, office procedure with less sensitivity and inability diagnose a polyp and removal versus hysteroscopy done under anesthesia more invasive more sensitive to endometrial cancer and possibility of diagnosing and endometrial polyp with the possibility of polypectomy. All questions were answered pt verbalized understanding and decided to proceed with hysteroscopy D&C possible polypectomy/myomectomy. Discussed with the patient the procedure , all benefits and risks including but not limited to inability to complete the procedure , bleeding, infection, possi ble need for blood transfusion with all its risk ( HIV,syphilis, Hepatitis, anaphylaxis shock, others..), injury to bladder, rectum, possible need for laparoscopy/laparotomy or hysterectomy. The patient verbalized understanding and signed the consent. Instructions given the patient to schedule a 2 week postoperative appointment Orders: Orders Pap Smear Today N95.0 - Postmenopausal bleeding Coding Level of Care Code Est Pt Level 3 (68161) Diagnoses Postmenopausal bleeding N95.0
[2023-04-12 09:43] VITALS: BP 110/70; BMI 35.5
== END 2023-04-12 10:22 | disposition home or self-care (01) ==
LOC: HO.HWS 09:38
PROVIDERS: PCP Internal Medicine; Visit Provider Obstetrics & Gynecology
DX: N95.0 Postmenopausal bleeding (principal)
CPT/HCPCS: 99213

== ENCOUNTER 2023-04-12 09:38 | Outpatient (REF) | payer OTHER, SELFPAY ==
[2023-04-15 03:53] LABS: HPV mRNA E6/E7 rflx Not Detected (Not Detected)
== END 2023-04-12 09:39 | disposition home or self-care (01) ==
LOC: HO.LNP 09:38
PROVIDERS: PCP Internal Medicine; Visit Provider Obstetrics & Gynecology
DX: Z12.4 Encounter for screening for malignant neoplasm of cervix (principal); Z11.51 Encounter for screening for human papillomavirus (HPV); N95.0 Postmenopausal bleeding
CPT/HCPCS: 87624; 88142

== ENCOUNTER 2023-04-26 11:21 | Day surgery (SDC) | payer OTHER, SELFPAY ==
[2023-04-26 12:13] VITALS: BMI 35.7
[2023-04-26 12:25] VITALS: BP 148/88; PULSE 101; RESP 18; TEMP 36.7; O2SAT 97
[2023-04-26] MEDS: Lactated Ringers 1,000 ML 80 ML IVCONT (12:30)
--- NOTE | 2023-04-26 12:44 | MHC.SHP ---
Pre-Procedural Eval Section A Date of Service: 04/26/23 The patient is an INPATIENT: No Changes since office visit: No Cold of Flu in the past 2 weeks, No New Medical Problems, No Changes in Medication and No Patient answered all questions The History & Physical has been completed within 30 days and I have reviewed it.: Yes Section B Chief Complaint: Postmenopausal bleeding Allergies: Allergies Allergy/AdvReac Type Severity Reaction Status Date / Time No Known Allergies Allergy Verified 04/26/23 12:25 [No Known Allergies*] Plan Diagnosis/Plan: Unchanged I have reviewed the history and physical and performed a pertinent physical examination on my patient. No changes have occurred unless specified. Time Spent With Patient Time: Total time managing care of this patient today ____ minutes.
--- NOTE | 2023-04-26 13:21 | HO.ANESPROP2 ---
HPI - Anesthesia Eval Consult details Narrative: 62 F for Hysteroscopy, Dilataion & Curettage PMF Active Problems Active Problems: All Active Problems (Updated 04/12/23 @ 10:43 by Willi Ramirez MD) Postmenopausal bleeding (Acute) Endometrial thickening on ultrasound (Acute) Pelvic pain (Acute) Pain of female symphysis pubis (Acute) Primary osteoarthritis of right knee (Acute) Weak urinary stream (Acute) Well woman exam (Acute) Urinary retention with incomplete bladder emptying (Acute) Acute vaginitis (Acute) Stress incontinence in female (Acute) Past Medical History Medical History Stress incontinence GERD (gastroesophageal reflux disease) Depression Anxiety Asthma HTN (hypertension) Functional capacity: independent ambulation Family History Family history of problems with anesthesia: No Surgical History Surgical History Total knee replacement status History of suburethral sling procedure History of appendectomy History of endometrial ablation History of Problems with Anesthesia: No Social History Alcohol intake: never Patient Tobacco Use Status: Never used Tobacco Current occupational status: unemployed 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 Gender identity: Female Meds Allergies Allergy/AdvReac Type Severity Reaction Status Date / Time No Known Allergies Allergy Verified 04/26/23 12:25 [No Known Allergies*] Active Medications: Current Medications Lactated Ringer's (Lr) 1,000 mls @ 80 mls/hr IVCONT .[id number] MARVA Last Admin: 04/26/23 12:30 Dose: 80 mls/hr Home Medications Medication Instructions Recorded Confirmed Last Taken Type bupropion HCl 300 mg 24 hr tablet, 300 mg PO DAILY 06/03/20 04/26/23 06/17/20 04:30 History extended release irbesartan 75 mg tablet 37.5 mg PO DAILY 06/03/20 04/26/23 04/26/23 History lorazepam 0.5 mg tablet 0.5 mg PO BEDTIME PRN Anxiety 06/03/20 04/26/23 Unknown History omeprazole 20 mg capsule,delayed 20 mg PO DAILY 06/03/20 04/26/23 06/17/20 04:30 History release albuterol sulfate 90 mcg/actuation 2 puff inhalation Q4H PRN asthma 07/04/20 04/26/23 04/26/23 History aerosol inhaler Exam Height,Weight and Vital Signs: Height 5 ft 4 in Weight 94.438 kg Last Vital Signs Temp 98.1 F 04/26/23 12:25 Pulse 101 H 04/26/23 12:25 Resp 18 04/26/23 12:25 BP 148/88 H 04/26/23 12:25 Pulse Ox 97 04/26/23 12:25 O2 Del Method Room Air 04/26/23 12:25 Assessment and Plan Assessment Anesthesia Assessment: Anesthesia Plan Discussed and Chart Reviewed Final Anesthetic Review Family History of Problems with Anesthesia: No History of Problems with Anesthesia: No NPO: Yes ASA Class: III Final Preanesthetic Review: Meds/Allgs Chart Reviewed, Consent Obtained/Reviewed and Anes Risks/Benef Reviewed Patient Risk: Intermediate Procedure Risk: Intermediate Anesthetic Plan Anesthetic Plan: GA and Agree w/ Assess. and Plan Disposition: Standard PACU
[2023-04-26 14:17] VITALS: BP 130/83; PULSE 67; RESP 13; TEMP 36.7; O2SAT 100
[2023-04-26 14:22] VITALS: BP 138/102; PULSE 85; RESP 17; O2SAT 98
[2023-04-26 14:27] VITALS: BP 146/93; PULSE 67; RESP 17; O2SAT 98
[2023-04-26] MEDS: Acetaminophen 325 MG TABLET 650 MG PO (14:29)
--- NOTE | 2023-04-26 14:30 | PM.OP ---
Brief Operative Note Date of Service: 04/26/23 Pre-op diagnosis: Thickened endometrium by ultrasound Post-op diagnosis: same (Normal endometrial cavity) Procedure: Hysteroscopy D&C Surgeon: Willi Ramirez MD Anesthesia: GLMA Was an Database Security Administrator used for this Procedure?: No Estimated blood loss (mL): 0 Pathology: other (Endometrial Scrapping.) Condition: stable Disposition: PACU
--- NOTE | 2023-04-26 14:31 | P.OP_ITS ---
Operative Note Operative Note Date of Service: 04/26/23 Narrative: Preop Diagnosis: 2nd endometrial by ultrasound Operation: Diagnostic Hysteroscopy, Dilataion & Curettage Post Op Diagnosis: Normal endometrial cavity QBL: Minimal Anesthesia: GLMA Surgeon: Willi Ramirez MD Innovation Analyst: None Complication: None Pathology: Endometrial Scrapings Procedure: The patient was put in the dorsal lithotomy position, scrubbed, and draped in the usual manner. A sterile speculum was inserted in the patient's vagina. The anterior lip of the cervix was grasped with a single tooth tenaculum. The cervix was dilated up to 5 mm, then the scope was inserted in the patient's uterus. Inspection revealed Normal endometrial cavity. The Myosure Reach device was used; the scope was removed from the endometrial cavity , sharp curettings was carried on with minimal to moderate amount of tissues retrieved. At the end of the procedure, all instruments were taken out of the patient uterine and vaginal cavity. The single tooth tenaculum was removed and homeostasis was assured using pressure,. The patient tolerated the procedure well and was transferred to the PACU in a stable condition.
[2023-04-26 14:32] VITALS: BP 133/86; PULSE 66; RESP 17; O2SAT 98
[2023-04-26 14:48] VITALS: BP 138/85; PULSE 62; RESP 18; TEMP 36.2; O2SAT 99
== END 2023-04-26 15:46 | disposition home or self-care (01) ==
PROVIDERS: PCP Internal Medicine; Visit Provider Obstetrics & Gynecology
PROC: 0UDB8ZZ Extraction of Endometrium, Via Natural or Artificial Opening Endoscopic (ICD-10-PCS; CPT 58558; principal; 2023-04-26 13:00)
DX: N95.0 Postmenopausal bleeding (principal); N39.3 Stress incontinence (female) (male); I10 Essential (primary) hypertension; J45.909 Unspecified asthma, uncomplicated; Z79.899 Other long term (current) drug therapy; Z98.890 Other specified postprocedural states
CPT/HCPCS: 58558; 88305; J1100; J2250; J2405; J2704; J3010

== ENCOUNTER → 2023-04-26 11:21 | Outpatient (BNV) | payer OTHER, SELFPAY | PROVIDERS: PCP Internal Medicine; Visit Provider Obstetrics & Gynecology | DX: N95.0 Postmenopausal bleeding (principal) | CPT/HCPCS: 58558 ==

== ENCOUNTER 2023-05-05 08:47 | Outpatient (AMB) | payer OTHER, SELFPAY ==
[2023-05-05 09:11] VITALS: BP 140/92
--- NOTE | 2023-05-05 09:11 | MHC.OFFVIS ---
Intake Vital Signs 05/05/23 09:11 BP 140/92 H Intake Visit Reasons: post op Allergies No Known Allergies [No Known Allergies*] Allergy (Verified 04/26/23 12:25) HPI HPI Comments History of Present Illness Details The patient is presenting post hysteroscopy D&C no complaints minimal vaginal bleeding no feverishness chills or abdominal pain. The patient is complaining of urinary frequency over the last few days . The pathology showed the following: Scant superficial fragments of endometrial and endocervical epithelium within normal limits; abundant mucoinflammatory material and blood. COMMENT: The endometrium is not well represented; consider repeat sampling, as clinically appropriate [facility] Medical History Stress incontinence GERD (gastroesophageal reflux disease) Depression Anxiety Asthma HTN (hypertension) Surgical History Total knee replacement status History of suburethral sling procedure History of appendectomy History of endometrial ablation Social History Alcohol intake: never Comment: medicated prior to leaving pacu Patient Tobacco Use Status: Never used Tobacco Current occupational status: unemployed 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 Gender identity: Female Female Reproductive History Menstrual Age of Menarche: 14 Review of Systems Const All systems reviewed & are unremarkable except as noted in HPI and below Reports as per HPI and Reports no additional complaints GI Reports no additional complaints Reports no additional complaints Physical Exam Vital Signs: Last Vital Signs BP 140/92 H 05/05/23 09:11 Assessment & Plan Assessment & Plan (1) Endometrial thickening on ultrasound: Comment: History of endometrial ablation Code(s): R93.89 - Abnormal findings on diagnostic imaging of other specified body structures Plan: Discussed with the patient the results of the pathology showing the following: Scant superficial fragments of endometrial and endocervical epithelium within normal limits; abundant mucoinflammatory material and blood. COMMENT: The endometrium is not well represented; consider repeat sampling, as clinically appropriate Explained to the patient with history of endometrial ablation access to endometrial cavity my be restricted can be the cause of scant tissue, in addition explained to the patient that endometrial pathology has not be ruled out accurately since endometrium is not well represented on a D&C pathology, recommended repeat endometrial sampling to rule out endometrial pathology including endometrial hyperplasia and/or malignancy. The patient verbalized understanding and agreed with the plan. Instructions given the patient to schedule a 2 week appointment for EMB (2) Microscopic hematuria: Code(s): R31.29 - Other microscopic hematuria Plan: Urine dip showed microscopic hematuria, will send urine for culture treat with Macrobid 100 mg p.o. b.i.d. for 5 days. The patient requested Diflucan 150 mg x 1 because of developing Chata vulvovaginitis after antibiotic course. Instructions given the patient to schedule a Repeat urine dip in 2 weeks, if persistent microscopic hematuria will treat accordingly Medications: New nitrofurantoin monohyd/m-cryst 100 mg (Macrobid) 100 mg PO BID 5 days 10 caps 0RF fluconazole 150 mg PO ONCE 1 day 1 tab 0RF Coding Level of Care Code Est Pt Level 3 (40801) Diagnoses Endometrial thickening on ultrasound R93.89 Microscopic hematuria R31.29
== END 2023-05-05 09:25 | disposition home or self-care (01) ==
LOC: HO.HWS 08:47
PROVIDERS: PCP Internal Medicine; Visit Provider Obstetrics & Gynecology
DX: R93.89 Abnormal findings on diagnostic imaging of other specified body structures (principal); R31.29 Other microscopic hematuria
CPT/HCPCS: 99213

== ENCOUNTER 2023-05-05 08:47 | Outpatient (REF) | payer OTHER, SELFPAY | END 2023-05-05 08:48 | disposition home or self-care (01) | LOC: HO.LNP 08:47 | PROVIDERS: PCP Internal Medicine; Visit Provider Obstetrics & Gynecology | DX: R31.29 Other microscopic hematuria (principal); R93.89 Abnormal findings on diagnostic imaging of other specified body structures | CPT/HCPCS: 87086; 87147 ==

== ENCOUNTER 2023-05-16 16:03 | Outpatient (REF) | payer OTHER, SELFPAY | END 2023-05-16 16:04 | disposition home or self-care (01) | LOC: HO.LAB 16:03 | PROVIDERS: PCP Internal Medicine; Visit Provider Obstetrics & Gynecology | DX: R31.29 Other microscopic hematuria (principal) | CPT/HCPCS: 87086 ==

== ENCOUNTER → 2023-07-22 13:29 | Outpatient (BNVA) | payer OTHER, SELFPAY | PROVIDERS: PCP Internal Medicine; Visit Provider Nurse Practitioner Family | DX: N39.3 Stress incontinence (female) (male) (principal); R33.9 Retention of urine, unspecified | CPT/HCPCS: 51798; 81003 ==

== ENCOUNTER 2023-07-22 13:55 | Outpatient (AMB) | payer OTHER, SELFPAY ==
--- NOTE | 2023-07-22 13:31 | MHC.OFFVIS ---
Intake Intake Visit Reasons: 1y follow up/PVR Intake Note: Patient presents today for follow up Incontinence and retention Urology Medications: none Blood Thinner: none PVR: 0ml Automotive Fuel Injection Servicer Required: No Accompanied by: Self / Same As Patient Allergies No Known Allergies [No Known Allergies*] Allergy (Verified 07/23/23 18:36) Medication List - Last Reconciled 07/23/23 by DANIEL Vasquez albuterol sulfate 90 mcg/actuation 2 puffs inhalation Q4H PRN bupropion HCl 300 mg PO DAILY fluconazole 150 mg PO ONCE 1 day irbesartan 37.5 mg PO DAILY lorazepam 0.5 mg PO BEDTIME PRN omeprazole 20 mg PO DAILY HPI HPI Comments History of Present Illness Details Melba is a pleasant 62-year-old male patient of Dr. Valentine. She has a past medical history of GERD, depression, anxiety, asthma, and hypertension. She presents to the office today for her follow-up regarding her urinary stress incontinence. When asked she reports to be doing and feeling well. She reports previously having underwent a procedure for a sling placement back in June of [address] Hudson however underwent a sling lysis a few months after as she had been experiencing pressure as well as inability to void with Dr. Knapp. She states that since her lysis procedure with Dr. Knapp she has been doing well. She does report episodes of urinary dribbling and stress incontinence however does not find this bothersome at this time. When asked she denies any changes to her urinary habits and or any urinary issues or concerns. She denies urinary urgency, urinary frequency, dysuria, hematuria, fever and or chills. In office urinalysis results reviewed with the patient today. PVR 0 mLs. PFSH Medical History Stress incontinence GERD (gastroesophageal reflux disease) Depression Anxiety Asthma HTN (hypertension) Surgical History Total knee replacement status History of suburethral sling procedure History of appendectomy History of endometrial ablation Social History Alcohol intake: never Comment: medicated prior to leaving pacu Patient Tobacco Use Status: Never used Tobacco Current occupational status: unemployed 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 Gender identity: Female Female Reproductive History Menstrual Age of Menarche: 14 Review of Systems Const Reports no additional complaints Eyes Reports no additional complaints ENT Reports no additional complaints Card Reports as per HPI Resp Reports as per HPI GI Reports as per HPI Reports as per HPI Musc Reports no additional complaints Neuro Reports no additional complaints Psych Reports as per HPI Endo Reports no additional complaints John/Lymph Reports no additional complaints Aller/Immun Reports no additional complaints Physical Exam Const General: cooperative, healthy appearing, comfortable, no acute distress, well developed, alert and awake Orientation/consciousness: patient oriented x3 Limitations: no limitations HEENT Head: Yes normal to inspection, Yes normocephalic and Yes atraumatic Ears: hearing grossly normal bilaterally Eyes General: appearance normal, both eyes and all related structures Neck Neck: Yes normal visual inspection and Yes trachea midline Chest Chest palpation & inspection: normal inspection of the chest Resp Effort & Inspection: normal respiratory effort and able to speak in complete sentences Cardio Rate: regular rate GI Inspection: Yes normal to inspection General: Yes no CVA tenderness Back/Spine/Pelvis Back: no CVA tenderness Skin General skin exam: no rashes or lesions noted Neuro General: patient oriented x3 Extrem General: Yes normal to inspection Psych Appearance: grossly normal and well kempt Mental Status: mental status grossly normal Speech and movement: Normal speech and movement present and Clear speech present Affect: normal affect Attitude: cooperative Thought process: Normal thought process present Thought content: Normal thought content present Insight: Fair insight present (Psych) Judgement: Fair judgement present (Psych) Office Procedures Post Void Residual Post Residual Void Post Void Residual (PVR): 0 [id number] Void Residual by ultrasound Results AMB Urinalysis, Automated UA Leukoctes 0 Tr/uL Last Edit by Heydi Galloway CMA on 07/22/23 13:45 UA Nitrite Negative Last Edit by Heydi Galloway CMA on 07/22/23 13:45 UA Urobilinogen 0.2 mg/dL Last Edit by Heydi Galloway CMA on 07/22/23 13:45 UA Protein 0 mg/dL Last Edit by Heydi Galloway CMA on 07/22/23 13:45 UA pH 6.0 Last Edit by Heydi Galloway CMA on 07/22/23 13:45 UA Blood 0 Олег/uL Last Edit by Heydi Galloway CMA on 07/22/23 13:45 UA Specific [place] 1.010 Last Edit by Heydi Galloway CMA on 07/22/23 13:45 UA Ketone Negative Last Edit by Heydi Galloway CMA on 07/22/23 13:45 UA Bilirubin 0 mg/dL Last Edit by Heydi Galloway CMA on 07/22/23 13:45 UA Glucose 0 mg/dL Last Edit by Heydi Galloway CMA on 07/22/23 13:45 Results Reviewed Results Reviewed: Laboratory Last Values Urine pH (Auto) 6.0 07/22/23 13:31 Specific [place] (Auto) 1.010 07/22/23 13:31 Urine Protein (Auto) 0 mg/dL 07/22/23 13:31 Glucose (UA)(Auto) 0 mg/dL 07/22/23 13:31 Urine Ketones (Auto) Negative 07/22/23 13:31 Urine Blood (Auto) 0 Олег/uL 07/22/23 13:31 Urine Nitrite (Auto) Negative 07/22/23 13:31 Urine Bilirubin (Auto) 0 mg/dL 07/22/23 13:31 Urine Urobilinogen (Auto) 0.2 mg/dL 07/22/23 13:31 Leukocyte Esterase (Auto) 0 Tr/uL 07/22/23 13:31 Assessment & Plan Assessment & Plan (1) Stress incontinence in female: Code(s): N39.3 - Stress incontinence (female) (male) (2) Urinary retention with incomplete bladder emptying: Code(s): R33.9 - Retention of urine, unspecified Plan In office urinalysis results reviewed with the patient today. PVR 0 mL. Patient currently denies any bothersome urinary issues or concerns. She is happy with current voiding parameters. Follow-up in 1 year with PVR; or sooner with any issues, concerns, and or questions. Orders: Orders AMB Urinalysis Automated 07/22/23 R33.9 - Retention of urine, unspecified AMB Post Void Residual by ultrasound 07/22/23 R33.9 - Retention of urine, unspecified Patient Instructions: The patient had an opportunity to ask questions regarding the treatment plan. All questions were answered. Physical exam, labs, and imaging were discussed and reviewed in detail. As well as risks, benefits, and discussion of treatment choices. No major barriers to understanding were identified. The patient expressed understanding and agreement with the above treatment plan. The patient was made aware they should contact our office by phone for worsening of their current condition, the appearance of new symptoms, or with any questions or concerns. Compliance is encouraged with any medications and follow up testing that is ordered. It is a privilege to be allowed the opportunity to participate in? your urological care.? Again, if you have any questions or concerns If you have any questions or concerns please do not hesitate to contact me. The office is [phone]. This note is constructed using voice recognition software. While every effort has been made to ensure accuracy supervisor cigar making machine errors may have been included. Yours sincerely, TAYLOR Vasquez Coding Level of Care Code Est Pt Level 3 (08599) Diagnoses Stress incontinence in female N39.3 Urinary retention with incomplete bladder emptying R33.9 CPT Codes Post Residual Void - PVR CPT Code: 83319-Vlam Void Residual by ultrasound ([id number])
== END 2023-07-22 13:55 | disposition home or self-care (01) ==
PROVIDERS: PCP Internal Medicine; Visit Provider Nurse Practitioner Family
DX: N39.3 Stress incontinence (female) (male) (principal); R33.9 Retention of urine, unspecified
CPT/HCPCS: 99213

== ENCOUNTER 2023-08-13 10:06 | Outpatient (REF) | payer OTHER, SELFPAY | END 2023-08-13 10:07 | disposition home or self-care (01) | LOC: HO.MAMMO 10:06 | PROVIDERS: PCP Internal Medicine; Visit Provider Internal Medicine | DX: Z12.31 Encounter for screening mammogram for malignant neoplasm of breast (principal) | CPT/HCPCS: 77063; 77067 ==

== ENCOUNTER → 2023-08-13 10:15 | Outpatient (BNV) | payer OTHER, SELFPAY | PROVIDERS: PCP Internal Medicine; Visit Provider Radiology Diagnostic Radiology | DX: Z12.31 Encounter for screening mammogram for malignant neoplasm of breast (principal) | CPT/HCPCS: 77063; 77067 ==

== ENCOUNTER 2023-08-16 13:00 | Outpatient (AMB) | payer OTHER, SELFPAY ==
--- NOTE | 2023-08-16 13:16 | A.OFFVIS_ITS ---
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 No vaginal bleeding no other concerns PFSH Medical History Stress incontinence GERD (gastroesophageal reflux disease) Depression Anxiety Asthma HTN (hypertension) Surgical History Total knee replacement status History of suburethral sling procedure History of appendectomy History of endometrial ablation Social History Alcohol intake: never Comment: medicated prior to leaving pacu Patient Tobacco Use Status: Never used Tobacco Current occupational status: unemployed 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 Gender identity: Female Female Reproductive History Menstrual Age of Menarche: 14 Office Procedures Endometrial Biopsy Details: The patient was counseled regarding the indication and benefits of endometrial sampling to rule out endometrial pathology including not limited to endometrial hyperplasia or endometrial cancer and others; The alternatives (Either do nothing vs. hysteroscopy D&C) & the risks were discussed with the patient including but not limited: pain, uterine perforation, bleeding, infection, possible injury to bladder, bowel, ureter, possible need for blood transfusion with all its possible risks. The patient verbalized understanding all questions answered and signed consent. The patient was placed into the dorsal lithotomy position; a speculum was inserted in the vagina. Using aseptic technique for the procedure, the cervix was cleansed with Betadine. The anterior lip of the cervix was grasped with a single tooth tenaculum. The uterus was sounded to 7 cm with a 4 mm Pipelle was used. Tissues samples were obtained and placed in formalin, in a patient labeled container and sent to the pathology department. At the end of the procedure, there was minimal bleeding noted The patient tolerated the procedure well and was discharged in good condition with the following instructions: Nothing in the vagina until the bleeding stops. No sex until the bleeding stops, to call if any of the following occurs: fever (>100.4), flu-like symptoms, abdominal pain, heavy bleeding, four smelling vaginal discharge. The patient was instructed to schedule a Follow up appointment in 2 weeks to discuss pathology results of the biopsy and treatment options. This note was generated with a voice recognition program. Some errors may have been overlooked during the review of this note. Sometimes these errors may affect the content or meaning of a given sentence. [id number] Biopsy Assessment & Plan Assessment & Plan (1) Microscopic hematuria: Code(s): R31.29 - Other microscopic hematuria Plan: Repeat urine dip showed no evidence of microscopic hematuria, the patient was reassured. (2) Endometrial thickening on ultrasound: Comment: History of endometrial ablation Code(s): R93.89 - Abnormal findings on diagnostic imaging of other specified body structures Plan: EMB repeated, see procedure note Orders: Orders AMB Endometrial Biopsy Today R93.89 - Abnormal findings on diagnostic imaging of other specified body structures Coding Level of Care Code Est Pt Level 3 (88709) Procedure Only Diagnoses Microscopic hematuria R31.29 Endometrial thickening on ultrasound R93.89 CPT Codes Endometrial Biopsy - CPT: 53155-Pvcirihsujk Biopsy ([id number])
== END 2023-08-16 13:55 | disposition home or self-care (01) ==
LOC: HO.HWS 13:00
PROVIDERS: PCP Internal Medicine; Visit Provider Obstetrics & Gynecology
DX: R31.29 Other microscopic hematuria (principal); R93.89 Abnormal findings on diagnostic imaging of other specified body structures
CPT/HCPCS: 58100; 99213

== ENCOUNTER 2023-08-16 13:00 | Outpatient (REF) | payer OTHER, SELFPAY | END 2023-08-16 13:01 | disposition home or self-care (01) | LOC: HO.LNP 13:00 | PROVIDERS: PCP Internal Medicine; Visit Provider Obstetrics & Gynecology | DX: R31.29 Other microscopic hematuria (principal); N95.0 Postmenopausal bleeding; R93.89 Abnormal findings on diagnostic imaging of other specified body structures | CPT/HCPCS: 58100; 81002; 88305 ==

== ENCOUNTER 2023-10-25 11:37 | Outpatient (AMB) | payer OTHER, SELFPAY ==
--- NOTE | 2023-10-25 11:43 | MHC.OFFVIS ---
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 The patient has no complaints, no vaginal bleeding, no feverishness chills or abdominal pain. The endometrial biopsy pathology report showed the following: Endometrium, biopsy: Superficial strips of endometrial, endocervical and squamous epithelium within normal limits; mucoinflammatory material. [facility] Medical History Stress incontinence GERD (gastroesophageal reflux disease) Depression Anxiety Asthma HTN (hypertension) Surgical History Total knee replacement status History of suburethral sling procedure History of appendectomy History of endometrial ablation Social History Alcohol intake: never Comment: medicated prior to leaving pacu Patient Tobacco Use Status: Never used Tobacco Patient : No Current occupational status: unemployed 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 Gender identity: Female Female Reproductive History Menstrual Age of Menarche: 14 control method: none Review of Systems Const All systems reviewed & are unremarkable except as noted in HPI and below Reports as per HPI and Reports no additional complaints GI Reports no additional complaints Reports no additional complaints Physical Exam Vital Signs: Last Vital Signs BP 132/84 10/25/23 11:45 BMI result Body Mass Index 36.0 Assessment & Plan Assessment & Plan (1) Postmenopausal bleeding: Comment: 1 cm endometrial stripe in 03/27 ultrasound h/o endo ablation Code(s): N95.0 - Postmenopausal bleeding Category: Medical Plan: Discussed with the patient the results of the endometrial biopsy showing inactive endometrium. Discussed with the patient the sensitivity, specificity, positive and negative predictive value, of endometrial biopsy in detecting endometrial pathology including but not limited to endometrial hyperplasia, cancer and other pathology; instructed the patient to call in case vaginal bleeding bleeding recurs, the next step will be to proceed with a diagnostic hysteroscopy/D&C for further endometrial sampling evaluation to rule out endometrial pathology. All questions answered and the patient verbalized understanding and agreed with the plan. Coding Level of Care Code Est Pt Level 3 (93135) Diagnoses Postmenopausal bleeding N95.0
[2023-10-25 11:45] VITALS: BP 132/84; BMI 36.0
== END 2023-10-25 12:08 | disposition home or self-care (01) ==
LOC: HO.HWS 11:37
PROVIDERS: PCP Internal Medicine; Visit Provider Obstetrics & Gynecology
DX: N95.0 Postmenopausal bleeding (principal)
CPT/HCPCS: 99213

== ENCOUNTER → 2023-10-25 11:37 | Outpatient (BNVA) | payer OTHER, SELFPAY | PROVIDERS: PCP Internal Medicine; Visit Provider Obstetrics & Gynecology ==

== ENCOUNTER 2023-11-15 08:41 | Outpatient (REF) | payer OTHER, SELFPAY ==
--- NOTE | ~2023-11-15 | XR_ITS ---
EXAMINATION: XR KNEE, LEFT CLINICAL INFORMATION: Pain in left knee. COMPARISON: None available. TECHNIQUE: 3 views of the left knee. FINDINGS: Moderate joint effusion. Tricompartmental hypertrophic changes. Mild narrowing of medial compartment. Severe narrowing of the lateral aspect of the patellofemoral compartment. XR/XR knee LT 3V IMPRESSION: Moderate joint effusion. Tricompartmental hypertrophic changes. Mild narrowing of medial compartment. Severe narrowing of the lateral aspect of the patellofemoral compartment.
== END 2023-11-15 08:42 | disposition home or self-care (01) ==
LOC: HO.HOSX 08:41
PROVIDERS: Visit Provider Orthopaedic Surgery
DX: M17.12 Unilateral primary osteoarthritis, left knee (principal)
CPT/HCPCS: 20610; 73562; J1010

== ENCOUNTER 2023-11-15 08:48 | Outpatient (AMB) | payer OTHER, SELFPAY ==
--- NOTE | 2023-11-15 08:50 | MHC.OFFVIS ---
Vital Signs 11/15/23 09:12 Height 5 ft 4 in Weight 205 lb BMI 35.2 Intake Visit Reasons: N//P Left knee pain Intake Note: Joana fowler 62 year old female presents to the office today with complaints of progressively worsening left knee pain. The patient did undergo right total knee replacement surgery in 2020. She also reports intermittent discomfort in her right knee. She denies any fevers or chills. She denies any locking or giving way. She has had injections in the past given into her left knee. Those injections gave her fairly good relief. She wishes to hold off on left total knee replacement surgery for as long as possible. She has taken Tylenol and anti-inflammatory medicines which gave her minimal relief. She has also done physical therapy which aggravated her pain. Allergies No Known Allergies [No Known Allergies*] Allergy (Verified 11/15/23 09:12) Medication List - Last Reconciled 11/15/23 by Nicolas Medley MD albuterol sulfate 90 mcg/actuation 2 puffs inhalation Q4H PRN bupropion HCl XL 300 mg PO DAILY irbesartan 37.5 mg PO DAILY lorazepam 0.5 mg PO BEDTIME PRN omeprazole 20 mg PO DAILY PFSH Medical History Stress incontinence GERD (gastroesophageal reflux disease) Depression Anxiety Asthma HTN (hypertension) Surgical History Total knee replacement status History of suburethral sling procedure History of appendectomy History of endometrial ablation Social History Alcohol intake: never Comment: medicated prior to leaving pacu Patient Tobacco Use Status: Never used Tobacco Current occupational status: unemployed 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 Gender identity: Female Female Reproductive History Menstrual Age of Menarche: 14 Physical Exam Vital Signs: BMI result Body Mass Index 35.2 Const Other: Well-nourished well-developed very friendly female awake alert and oriented x3 in no acute distress Extrem Other: Bilateral lower extremity examination shows good capillary refill, no skin lesions noted, normal sensation light touch Right knee examination shows that the surgical incision is well healed, no erythema, full active extension and flexion to 120 degrees, her patella tracks well Left knee examination shows a minimal effusion, palpable crepitus with range of motion, pain with range of motion, no instability Office Procedures Joint Injection/Drain Joint Injection/Drain Primary Site: left knee Prep: site was prepped using aseptic technique Injected: 40 mg of, DepoMedrol and 1% plain lidocaine Procedure: The patient tolerated the procedure well Coding 86650 - Large joint Procedure code (CPT) selection complete Results Reviewed Results Reviewed: X-rays of the patient's left knee show severe joint space narrowing, subchondral sclerosis, no acute bony abnormalities Assessment & Plan Assessment & Plan (1) Right knee pain: Code(s): M25.561 - Pain in right knee Category: Medical (2) Arthritis of left knee: Code(s): M17.12 - Unilateral primary osteoarthritis, left knee Category: Medical Plan Ms. Javier presents with left knee pain due to degenerative joint disease. I had a lengthy discussion with the patient regarding the treatment options. She wishes to hold off on left total knee replacement surgery for as long as possible. I agree with this plan. The risks and benefits of a left knee cortisone injection were discussed at length with the patient. The patient wished to proceed. She tolerated the injection well. She will continue with her [id number] exercises and activity modifications. She does have residual discomfort in her right knee after undergoing right total knee replacement surgery in April of 2021. Thus, I will arrange for her to have a follow-up appointment with Dr. Lira in our pain management Department to see if she is a candidate for a nerve block procedure. Feel free to call me at any time should questions regarding her orthopedic management arise. I spent 20 minutes in reviewing the patient's records and imaging studies, seeing the patient and documenting in the medical record. Orders: Orders AMB Joint Injection/Aspiration 11/15/23 M17.12 - Unilateral primary osteoarthritis, left knee XR knee LT 3V 11/15/23 M25.562 - Pain in left knee Referrals Pain Management Referral M25.561 - Pain in right knee Coding Level of Care Code Est Pt Level 3 (01808) Diagnoses Right knee pain M25.561 Arthritis of left knee M17.12 CPT Codes Coding - Large joint: 65423 - Large joint ([id number])
[2023-11-15 09:12] VITALS: BMI 35.2
== END 2023-11-15 09:33 | disposition home or self-care (01) ==
PROVIDERS: PCP Internal Medicine; Visit Provider Orthopaedic Surgery
DX: M17.12 Unilateral primary osteoarthritis, left knee (principal); M25.561 Pain in right knee
CPT/HCPCS: 20610; 99213

== ENCOUNTER 2023-12-09 08:04 | Outpatient (REF) | payer OTHER, SELFPAY ==
--- NOTE | ~2023-12-09 | XR_ITS ---
EXAMINATION: XR LUMBOSACRAL SPINE CLINICAL INFORMATION: Back pain COMPARISON: None available. TECHNIQUE: Three views of the lumbosacral spine. FINDINGS: There are 6 nonrib-bearing lumbar type vertebra. The last well-formed disc space will be referred to as L5-S1 for the purposes of this dictation. No evidence of acute fracture. 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 Suggestion of bilateral L5 pars defects with grade 1, 6 mm anterolisthesis of L5 on S1. Alignment otherwise preserved. Vertebral body heights are maintained. Mild L1 to and L5-S1 disc space height loss. Small lower thoracic and upper lumbar vertebral body endplate osteophytes. Soft tissues are unremarkable. XR/XR lumbar spine 2-3V IMPRESSION: 1. Suggestion of bilateral L5 pars defects with grade 1 anterolisthesis of L5 on S1. 2. Mild multilevel lumbar spondylosis, most pronounced at L1-L2 and L5-S1.
[2023-12-09 08:21] LABS: MANUAL DIFF FLAG NO
[2023-12-09 08:34] LABS: Basophils Absolute Auto 0.1 X10*3/uL (0.0-0.2); Basophils Percent Auto 0.6 % (0-2); Eosinophils Absolute Auto 0.4 X10*3/uL (0.0-0.4); Eosinophils Percent Auto 5.3 % (0-4); Hematocrit 41.9 % (37.0-47.0); Hemoglobin 13.7 g/dl (12.0-16.0); Imm Gran Abs Auto 0.03 X10*3/uL (0.00-0.03); Imm Gran Pct Auto 0.4 % (0.0-0.4); Lymphocytes Absolute Auto 3.5 X10*3/uL (1.2-4.9); Lymphocytes Percent Auto 43.5 % (20-40); Mean Corpuscular HGB Conc 32.7 g/dl (31.0-35.0); Mean Corpuscular Hemoglobin 28.5 pg (27.0-33.0); Mean Corpuscular Volume 87.1 fL (80.0-98.0); Mean Platelet Volume 9.8 fL (9.4-12.3); Monocytes Absolute Auto 0.5 X10*3/uL (0.1-1.2); Monocytes Percent Auto 6.4 % (2-11); Neutrophils Absolute Auto 3.6 x10*3/uL (2.0-8.3); Neutrophils Percent Auto 43.8 % (45-73); Platelet Count 280 X10*3/uL (160-400); Red Blood Count 4.81 X10*6/uL (4.20-5.50); Red Cell Distribution Width 13.2 % (11.0-16.0); White Blood Count 8.1 X10*3/uL (4.8-10.8)
[2023-12-09 09:06] LABS: Alanine Aminotransferase 27 U/L (0-31); Albumin Level 3.7 g/dL (3.5-5.0); Alkaline Phosphatase 96 U/L (39-117); Anion Gap 11 (12-20); Aspartate Amino Transferase 21 U/L (5-31); Bilirubin Total 0.3 mg/dL (0.0-1.0); Blood Urea Nitrogen 14 mg/dL (9-16); Calcium 9.1 mg/dL (8.4-10.2); Carbon Dioxide 23 mmol/L (22-29); Chloride 110 mmol/L (96-108); Cholesterol 197 mg/dL (<200); Estimated Glomerular Filt Rate > 60; Glucose Fasting 128 mg/dL (60-99); HDL Cholesterol 62 mg/dL (>40); LDL Cholesterol Calculated 123 mg/dL (<100); Potassium 4.1 mmol/L (3.3-5.1); Sodium 140 mmol/L (135-145); Triglycerides 64 mg/dL (<150)
[2023-12-09 09:23] LABS: Vitamin B12 430 pg/mL (200-900)
== END 2023-12-09 08:05 | disposition home or self-care (01) ==
LOC: HO.LAB 08:04
PROVIDERS: PCP Internal Medicine; Visit Provider Internal Medicine
DX: I10 Essential (primary) hypertension (principal); K21.9 Gastro-esophageal reflux disease without esophagitis; M54.50 Low back pain, unspecified; G62.9 Polyneuropathy, unspecified
CPT/HCPCS: 36415; 72100; 80053; 80061; 82607; 85025

== ENCOUNTER 2023-12-09 09:03 | Outpatient (AMB) | payer OTHER, SELFPAY ==
--- NOTE | 2023-12-09 09:05 | MHC.OFFVIS ---
Vital Signs 12/09/23 09:07 Height 5 ft 4 in Weight 210 lb BMI 36.0 BP 135/85 Blood Pressure Location Lt radial Position Sitting Respiration 14 Pulse 95 Pulse Source Pulse Oximeter Pulse Oximetry (%) 96 Oxygen Delivery Method Room Air Intake Visit Reasons: Pain in right knee Allergies No Known Allergies [No Known Allergies*] Allergy (Verified 12/09/23 09:08) Medication List - Last Reconciled 12/09/23 by Cassidy Cleaning LPN albuterol sulfate 90 mcg/actuation 2 puffs inhalation Q4H PRN bupropion HCl XL 300 mg PO DAILY irbesartan 37.5 mg PO DAILY lorazepam 0.5 mg PO BEDTIME PRN omeprazole 20 mg PO DAILY HPI HPI Pain in right knee: Details: 62-year-old female who presents today to the office for evaluation of pain in right knee. She complains of progressively worsening right knee pain. The patient underwent right total knee replacement surgery in 2020 and subsequently developed intermittent discomfort in her right knee. She reports tightness at the back side of the leg. She also reports pin and needle sensations. She describes her pain as constant and rates the pain at 6/10 in intensity. She denies locking or giving way. She has had injections in the past given into her left knee. Those injections gave her fairly good relief. She wishes to hold off on left total knee replacement surgery for as long as possible. She has taken Tylenol and ibuprofen, which gave her minimal relief. She has not tried gabapentin in the past. She has also done physical therapy, which aggravated her pain. [facility] Medical History Stress incontinence GERD (gastroesophageal reflux disease) Depression Anxiety Asthma HTN (hypertension) Surgical History Total knee replacement status History of suburethral sling procedure History of appendectomy History of endometrial ablation Social History Alcohol intake: never Comment: medicated prior to leaving pacu Patient Tobacco Use Status: Never used Tobacco Current occupational status: unemployed 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 Gender identity: Female Female Reproductive History Menstrual Age of Menarche: 14 Review of Systems Const All systems reviewed & are unremarkable except as noted in HPI and below Physical Exam Vital Signs: Last Vital Signs Pulse 95 12/09/23 09:07 Resp 14 12/09/23 09:07 BP 135/85 12/09/23 09:07 Pulse Ox 96 12/09/23 09:07 Oxygen Delivery Method Room Air 12/09/23 09:07 BMI result Body Mass Index 36.0 General: Appears afebrile. Alert and oriented. Mood and affect appropriate. Follows and participates in conversation appropriately. Respiratory effort is unlabored. Able to transition from sit to stand unassisted. Ambulates with bilaterally normal heel strike and toe off. Well-healed midline incision on right knee. There is pain described around the knee cap. There is no significant tenderness to palpation. Results Reviewed Results Reviewed: 11/15/23: XR KNEE, LEFT FINDINGS: Moderate joint effusion. Tricompartmental hypertrophic changes. Mild narrowing of medial compartment. Severe narrowing of the lateral aspect of the patellofemoral compartment. IMPRESSION: Moderate joint effusion. Tricompartmental hypertrophic changes. Mild narrowing of medial compartment. Severe narrowing of the lateral aspect of the patellofemoral compartment. 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 temporary nerve stimulator as possible treatment options for post arthroplasty knee pain. She would like to proceed with temporary PNS of the right saphenous nerve as a first step. A brochure was provided to the patient. Will schedule her for a temporary PNS of the right saphenous nerve. Discussed the risks and benefits of the procedure with the patient in detail. All questions were answered. The patient is on board with the plan. Informed the patient that insurance approval is required. We will file a PA for approval and keep her updated. Justification for interventional therapy: ? Patient with average pain > 6/10 ? Patient has exhausted conservative and surgical therapy, including TKR . Patient has a good understanding of their pain condition and has appropriate mental and social support I will also send in a prescription for gabapentin 300 milligrams to be taken at night for one week and then increase to 300 B.I.D, if well tolerated. Scribed for Dr. Lira by Fantasma Musa, medical record librarian, on 12/09/2023. I, Dr. Lira, have personally reviewed and agree with the information entered by the david. Medications: New gabapentin Take 1 capsule at night for 1 week; if well tolerated, increase to twice daily 300 mg PO BID 60 caps 0RF Coding Level of Care Code New Pt Level 4 (59647) Diagnoses Chronic knee pain after total replacement of right knee joint M25.561; G89.29; Z96.651
[2023-12-09 09:07] VITALS: BP 135/85; PULSE 95; RESP 14; O2SAT 96; BMI 36.0
== END 2023-12-09 09:16 | disposition home or self-care (01) ==
PROVIDERS: PCP Internal Medicine; Referring Provider Orthopaedic Surgery; Visit Provider Internal Medicine
DX: M25.561 Pain in right knee (principal); G89.29 Other chronic pain; Z96.651 Presence of right artificial knee joint
CPT/HCPCS: 99204

== ENCOUNTER 2024-01-26 11:08 | Emergency (ER) | payer OTHER, SELFPAY ==
--- NOTE | ~2024-01-26 | CT_ITS ---
EXAMINATION: CT HEAD WITHOUT CONTRAST CLINICAL INFORMATION: Fall. Head strike. COMPARISON: None. TECHNIQUE: Contiguous axial imaging was performed from the skullbase to vertex without intravenous administration of contrast. This CT examination was performed using dose optimization techniques as appropriate, variously including the following: *Automated exposure control *Adjustment of mA and/or kV according to patient size (this includes techniques or standardized protocols for targeted exams where dose is matched to indication/reason for exam; i.e. extremities or head) *Use of iterative reconstruction technique DLP: 606 mGy-cm. FINDINGS: There is no evidence of acute intracranial hemorrhage or territorial infarction. No abnormal mass effect or midline shift is seen. Gonzalez to white matter differentiation is well preserved. No extra-axial fluid collections are identified. Mild generalized brain parenchymal volume loss and chronic white matter microangiopathy noted. The osseous structures and soft tissues are normal. The mastoid air cells are well aerated. There are partially visualized small fluid levels and aerosolized secretions in the maxillary sinuses. CT/CT head/brain wo IV con IMPRESSION: No acute intracranial pathology. Dependent aerosolized secretions in the maxillary sinuses. Electronically signed by: Mohamud Leyva MD 01/26/2024 02:03 PM EDT
--- NOTE | ~2024-01-26 | CT_ITS ---
EXAMINATION: CT CERVICAL SPINE WITHOUT CONTRAST CLINICAL INFORMATION: Fell down, neck injury and pain COMPARISON: Cervical spine x-ray on 08/10/2022, MRI cervical spine on 04/26/2015 TECHNIQUE: Multiple 3.0 and 0.6 mm axial images were obtained from base of skull to T1 levels without IV contrast enhancement. Sagittal and coronal 2.0 mm bone window images were reconstructed from axial image data. This CT examination was performed using dose optimization techniques as appropriate, variously including the following: *Automated exposure control *Adjustment of mA and/or kV according to patient size (this includes techniques or standardized protocols for targeted exams where dose is matched to indication/reason for exam; i.e. extremities or head) *Use of iterative reconstruction technique DLP: 575 mGy-cm FINDINGS: C1/C2: Bony structures are intact with normal alignment. There is no spinal stenosis. C2/C3: Bony structures are intact with normal alignment. There is no spinal stenosis. Bilateral C2/C3 neuroforamina are patent. Bilateral apophyseal joints are intact with normal alignment. C3/C4: Bony structures are intact with normal alignment. There is no spinal stenosis. There is marked asymmetric right C3/C4 neuroforamina are patent neural foraminal stenosis. Bilateral apophyseal joints are intact with normal alignment. C4/C5: Bony structures are intact with normal alignment. There is no spinal stenosis. There is moderate asymmetric right C4/C5 neural foraminal stenosis. Bilateral apophyseal joints are intact with normal alignment. C5/C6: Bony structures are intact with mild kyphosis. There is marked decrease in intervertebral disc height.. There is no spinal stenosis. Bilateral C5/C6 neuroforamina are markedly stenosed. Bilateral apophyseal joints are intact with normal alignment. C6/C7: Bony structures are intact with mild kyphosis. There is marked decrease in intervertebral disc height. Sharp anterior syndesmophytes are present. Moderate asymmetric right posterior bridging syndesmophytes are seen markedly effacing the right lateral recess. There is mild spinal stenosis with AP diameter of the spinal canal reduced to 9.1 mm. Bilateral C6/C7 neuroforamina are markedly stenosed. Bilateral apophyseal joints are intact with normal alignment. C7/T1: Bony structures are intact with normal alignment. There is no spinal stenosis. Bilateral C7/T1 neuroforamina are patent. Bilateral apophyseal joints are intact with normal alignment. Multilevel bilateral apophyseal joint and uncovertebral joint osteoarthritis with loss of joint space, sclerosis, facet hypertrophy and osteophytosis are seen. A prominent sclerotic lesion is seen in the right anterior T1 vertebral body measuring 0.6 cm in AP diameter, 0.8 cm in width, 0.8 cm in vertical height. CT/CT cervical spine wo IV con IMPRESSION: 1. No evidence of acute fracture or dislocation in the cervical spine. 2. Multilevel cervical spondylosis including advanced C5-C6 and C6-C7 degenerative cervical disc disease and mild kyphosis. 3. Unchanged right posterior C6-C7 bridging syndesmophytes markedly effacing the right lateral recess, causing mild spinal stenosis. 4. Marked asymmetric right C3/C4 and moderate asymmetric right C4/C5 neural foraminal stenosis. 5. Marked bilateral C5/C6 and C6/C7 neural foraminal stenosis. 6. Prominent sclerotic lesion in the right anterior T1 vertebral body is stable since MRI of cervical spine in 2014, compatible with sclerotic bone island.. Electronically signed by: Christiano Barfield MD 01/26/2024 02:36 PM EDT
--- NOTE | ~2024-01-26 | CT_ITS ---
EXAMINATION: CT FACIAL BONES WITHOUT CONTRAST CLINICAL INFORMATION: Fall, head strike. COMPARISON: None available. TECHNIQUE: Noncontrast CT examinations of the maxillofacial bones were performed. Coronal and sagittal images were created for each examination at the technologist workstation. This CT examination was performed using dose optimization techniques as appropriate, variously including the following: *Automated exposure control *Adjustment of mA and/or kV according to patient size (this includes techniques or standardized protocols for targeted exams where dose is matched to indication/reason for exam; i.e. extremities or head) *Use of iterative reconstruction technique DLP: 440 mGy-cm FINDINGS: No acute maxillofacial fractures are seen. Air-fluid levels in the left greater than right maxillary sinus with aerosolized secretions. Otherwise, paranasal sinuses are clear. The mastoids and middle ear cavities are clear. The mandibular heads are well-seated in the condylar fossa. Moderate degenerative changes in the left greater than right temporomandibular joints. Periapical dental disease in the superior central incisors. The orbits demonstrate a normal appearance bilaterally. The globes are intact, and there are no suspicious findings to suggest retrobulbar hemorrhage. CT/CT facial bones wo IV con IMPRESSION: 1. No acute maxillofacial fractures. 2. Maxillary sinus disease. 3. Periapical dental disease in the superior central incisors. Correlate with dental examination. Electronically signed by: Ruby Blood MD 01/26/2024 03:19 PM EDT
[2024-01-26 11:12] VITALS: BP 141/77; PULSE 85; RESP 18; TEMP 36.4; O2SAT 98; BMI 35.2
--- NOTE | 2024-01-26 11:17 | ED_ITS ---
HPI - Fall General Chief Complaint: Fall Stated Complaint: fall-face inj Time Seen by Provider: 01/26/24 12:06 History of Present Illness ED Provider: Dr. Reyes HPI Narrative: 63 y/o F patient; PMH HTN; presents from [place] with report of accidental trip and fall while visiting [place] today. The patient states the sidewalk was uneven and she lost her balance fall forward onto her mouth/face. She did not lose consciousness. She has been ambulatory since. She primarily complains of upper dental discomfort and lip laceration. Unknown tetanus. Otherwise denies: nausea/vomiting, abdominal pain, diarrhea, chest pain, SOB, cough/congestion, syncope. Related Data Home Medications ?Medication ?Instructions ?Recorded ?Confirmed bupropion HCl 300 mg 24 hr tablet, 300 mg PO DAILY 06/03/20 12/09/23 extended release irbesartan 75 mg tablet 37.5 mg PO DAILY 06/03/20 12/09/23 lorazepam 0.5 mg tablet 0.5 mg PO BEDTIME PRN Anxiety 06/03/20 12/09/23 omeprazole 20 mg capsule,delayed 20 mg PO DAILY 06/03/20 12/09/23 release albuterol sulfate 90 mcg/actuation 2 puff inhalation Q4H PRN asthma 07/04/20 12/09/23 aerosol inhaler Previous Rx's ?Medication ?Instructions ?Recorded gabapentin 300 mg capsule 300 mg PO BID #60 caps 12/09/23 Allergies Allergy/AdvReac Type Severity Reaction Status Date / Time No Known Allergies Allergy Verified 01/26/24 11:15 [No Known Allergies*] Review of Systems Review of Systems: Yes all other systems are reviewed and are negative PMFSH Past Medical History Attestation statement: The following information was validated with the patient. Source: unable to obtain Medical History Stress incontinence GERD (gastroesophageal reflux disease) Depression Anxiety Asthma HTN (hypertension) Surgical History Total knee replacement status History of suburethral sling procedure History of appendectomy History of endometrial ablation Social History Social History Alcohol intake: never Comment: medicated prior to leaving [place] Patient Tobacco Use Status: Never used Tobacco Smoked in Last 30 Days: No Use of substances other than those prescribed or required for medical reasons: No Advance Directives: No Advance Directives Information Provided: No Current occupational status: unemployed 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 Gender identity: Female Physical Exam Vital Signs: Vital Signs: Last Vital Signs Temp 98.6 F 01/26/24 14:36 Pulse 73 01/26/24 14:36 Resp 18 01/26/24 14:36 BP 154/81 H 01/26/24 14:36 Pulse Ox 99 01/26/24 14:36 O2 Del Method Room Air 01/26/24 14:36 BMI result Body Mass Index 35.2 Patient is afebrile, mildly hypertensive. Const: General: cooperative, comfortable and no acute distress HEENT: Other: No nasal bone tenderness. No zygomatic bone tenderness. Dentition: No dentition gum intrusion. No laceration to gum. No loose teeth. Mild displacement of upper frontal incisors inward to mouth. Inner aspect of upper lip: Deep through and through laceration likely involving the orbicularis daniella muscle Inner aspect of lower lip: Two very small non-gapping lacerations Outer aspect of upper lip:Two small lacerations that correlate with teeth torres without involvement of the kaycee border Outer aspect of lower lip: Non-traumatic Eyes: General: appearance normal, both eyes and all related structures Pupils: Equal, round and reactive pupils present EOM: EOMs intact bilaterally Neck: Neck: Yes normal visual inspection, Yes full ROM, Yes supple and No tender Chest: Chest palpation & inspection: normal inspection of the chest and normal palpation of entire chest wall Resp: Effort & Inspection: normal respiratory effort, able to speak in complete sentences, no cough and no respiratory distress Auscultation: clear to auscultation bilaterally Cardio: Rate: regular rate Rhythm: regular rhythm Peripheral pulses: Peripheral pulses 2+ throughout GI: Inspection: Yes normal to inspection, No Abdominal wall edema and No distended Palpation (GI): Soft to palpation, not firm, nontender, no guarding and not rigid Auscultation: normal bowel sounds Back/Spine/Pelvis: Back: No back tenderness Neuro: Cranial nerves: Yes Equal, round and reactive pupils present Extrem: Other: Small abrasion to right knee and left wrist with FROM, NVI. Course Course Course Narrative: This is a Rapid Medical Examination (RME) performed by Luh Nassar PA-C in triage. Full HPI, ROS, assessment and treatment plan per primary provider in the Main ED. 63 yo female here for eval of nasal/ dental pain s/p mechanical fall [employer] [place]. reports walking in [place] when she lost her balance stepping on the curb and fell forward onto her knees, striking her face on the concrete. denies LOC. not on AC. no preceding sx of cp, sob, dizziness, vision changes. reports pain to upper lip/ teeth and nose. denies headache or neck pain. PE: 1cm lac to upper lip, bleeding controlled in triage. no cracked/ missing te eth. perrla. no midline cervical spinous tenderness. Plan: ct head/c spine/ face Reevaluation(s) Reevaluation #1: Patient is afebrile, mildly hypertensive. CT imaging ordered in triage prior to my evaluation of the patient. Please see procedure note for laceration repair. Likely through and through laceration, one deep suture placed and four superficial sutures placed with absorbable material. CT Head/Neck/Maxillofacial Face unremarkable for acute traumatic process. Plan: Discharge to home with PCP and dental follow up Return precautions given Medications Administered Discontinued Medications Generic Name Dose Route Start Last Admin Trade Name Freq PRN Reason Stop Dose Admin Acetaminophen 975 mg 01/26/24 12:33 01/26/24 13:17 Acetaminophen 325 Mg Tablet PO 01/26/24 12:34 975 mg ONCE ONE Administration Lidocaine/Epinephrine 10 ml 01/26/24 12:15 01/26/24 12:29 Lidocaine Hcl 1%/Epi 1:100,000 10 Ml Vial INFILTRATI 01/26/24 12:16 10 ml ONCE ONE Administration Procedures Laceration Laceration 1: Site: lip (Outer upper lip ) Size (cm): 1 Description: linear and other (Two small 1cm lacerations ) Depth: simple, single layer Local Anesthetic: lidocaine 1% and with epi Amount of anesthesia used (mL): 3 Pre-repair: wound explored and irrigated extensively Skin layer closed with: vicryl Size (cm): 5-0 Number of sutures: 2 Technique: simple, interrupted Laceration 2: Site: lip Size (cm): 5 Description: irregular and involves kaycee border (Does not involve the vermillian border) Depth: involves muscle layer Local Anesthetic: lidocaine 1% and with epi Amount of anesthesia used (mL): 3 Pre-repair: wound explored and irrigated extensively Skin layer closed with: vicryl Size (cm): 5-0 Number of sutures: 3 Technique: simple, interrupted and other (Two simple interrupted sutures. One deep Y shaped suture placed. ) Medical Decision Making Radiology Impression Discussion of test interpretation with radiology: I have reviewed the radiol ogist's reading. Radiologist Impression: EXAMINATION: CT HEAD WITHOUT CONTRAST CLINICAL INFORMATION: Fall. Head strike. COMPARISON: None. TECHNIQUE: Contiguous axial imaging was performed from the skullbase to vertex without intravenous administration of contrast. This CT examination was performed using dose optimization techniques as appropriate, variously including the following: *Automated exposure control *Adjustment of mA and/or kV according to patient size (this includes techniques or standardized protocols for targeted exams where dose is matched to indication/reason for exam; i.e. extremities or head) *Use of iterative reconstruction technique DLP: 606 mGy-cm. FINDINGS: There is no evidence of acute intracranial hemorrhage or territorial infarction. No abnormal mass effect or midline shift is seen. Gonzalez to white matter differentiation is well preserved. No extra-axial fluid collections are identified. Mild generalized brain parenchymal volume loss and chronic white matter microangiopathy noted. The osseous structures and soft tissues are normal. The mastoid air cells are well aerated. There are partially visualized small fluid levels and aerosolized secretions in the maxillary sinuses. CT/CT head/brain wo IV con IMPRESSION: No acute intracranial pathology. Dependent aerosolized secretions in the maxillary sinuses. Electronically signed by: Mohamud Leyva MD 01/26/2024 02:03 PM EDT RP EXAMINATION: CT CERVICAL SPINE WITHOUT CONTRAST CLINICAL INFORMATION: Fell down, neck injury and pain COMPARISON: Cervical spine x-ray on 08/10/2022, MRI cervical spine on 04/26/2015 TECHNIQUE: Multiple 3.0 and 0.6 mm axial images were obtained from base of skull to T1 levels without IV contrast enhancement. Sagittal and coronal 2.0 mm bone window images were reconstructed from axial image data. This CT examination was performed using dose optimization techniques as appropriate, variously including the following: *Automated exposure control *Adjustment of mA and/or kV according to patient size (this includes techniques or standardized protocols for targeted exams where dose is matched to indication/reason for exam; i.e. extremities or head) *Use of iterative reconstruction technique DLP: 575 mGy-cm FINDINGS: C1/C2: Bony structures are intact with normal alignment. There is no spinal stenosis. C2/C3: Bony structures are intact with normal alignment. There is no spinal stenosis. Bilateral C2/C3 neuroforamina are patent. Bilateral apophyseal joints are intact with normal alignment. C3/C4: Bony structures are intact with normal alignment. There is no spinal stenosis. There is marked asymmetric right C3/C4 neuroforamina are patent neural foraminal stenosis. Bilateral apophyseal joints are intact with normal alignment. C4/C5: Bony structures are intact with normal alignment. There is no spinal stenosis. There is moderate asymmetric right C4/C5 neural foraminal stenosis. Bilateral apophyseal joints are intact with normal alignment. C5/C6: Bony structures are intact with mild kyphosis. There is marked decrease in intervertebral disc height.. There is no spinal stenosis. Bilateral C5/C6 neuroforamina are markedly stenosed. Bilateral apophyseal joints are intact with normal alignment. C6/C7: Bony structures are intact with mild kyphosis. There is marked decrease in intervertebral disc height. Sharp anterior syndesmophytes are present. Moderate asymmetric right posterior bridging syndesmophytes are seen markedly effacing the right lateral recess. There is mild spinal stenosis with AP diameter of the spinal canal reduced to 9.1 mm. Bilateral C6/C7 neuroforamina are markedly stenosed. Bilateral apophyseal joints are intact with normal alignment. C7/T1: Bony structures are intact with normal alignment. There is no spinal stenosis. Bilateral C7/T1 neuroforamina are patent. Bilateral apophyseal joints are intact with normal alignment. Multilevel bilateral apophyseal joint and uncovertebral joint osteoarthritis with loss of joint space, sclerosis, facet hypertrophy and osteophytosis are seen. A prominent sclerotic lesion is seen in the right anterior T1 vertebral body measuring 0.6 cm in AP diameter, 0.8 cm in width, 0.8 cm in vertical height. CT/CT cervical spine wo IV con IMPRESSION: 1. No evidence of acute fracture or dislocation in the cervical spine. 2. Multilevel cervical spondylosis including advanced C5-C6 and C6-C7 degenerative cervical disc disease and mild kyphosis. 3. Unchanged right posterior C6-C7 bridging syndesmophytes markedly effacing the right lateral recess, causing mild spinal stenosis. 4. Marked asymmetric right C3/C4 and moderate asymmetric right C4/C5 neural foraminal stenosis. 5. Marked bilateral C5/C6 and C6/C7 neural foraminal stenosis. 6. Prominent sclerotic lesion in the right anterior T1 vertebral body is stable since MRI of cervical spine in 2015, compatible with sclerotic bone island.. Electronically signed by: Christiano Barfield MD 01/26/2024 02:36 PM EDT RP EXAMINATION: CT FACIAL BONES WITHOUT CONTRAST CLINICAL INFORMATION: Fall, head strike. COMPARISON: None available. TECHNIQUE: Noncontrast CT examinations of the maxillofacial bones were performed. Coronal and sagittal images were created for each examination at the technologist workstation. This CT examination was performed using dose optimization techniques as appropriate, variously including the following: *Automated exposure control *Adjustment of mA and/or kV according to patient size (this includes techniques or standardized protocols for targeted exams where dose is matched to indication/reason for exam; i.e. extremities or head) *Use of iterative reconstruction technique DLP: 440 mGy-cm FINDINGS: No acute maxillofacial fractures are seen. Air-fluid levels in the left greater than right maxillary sinus with aerosolized secretions. Otherwise, paranasal sinuses are clear. The mastoids and middle ear cavities are clear. The mandibular heads are well-seated in the condylar fossa. Moderate degenerative changes in the left greater than right temporomandibular joints. Periapical dental disease in the superior central incisors. The orbits demonstrate a normal appearance bilaterally. The globes are intact, and there are no suspicious findings to suggest retrobulbar hemorrhage. CT/CT facial bones wo IV con IMPRESSION: 1. No acute maxillofacial fractures. 2. Maxillary sinus disease. 3. Periapical dental disease in the superior central incisors. Correlate with dental examination. Electronically signed by: Ruby Blood MD 01/26/2024 03:19 PM EDT RP Discharge Plan Discharge Clinical Impression: Acute head trauma, Laceration of lip Patient Disposition: Home, Self-Care Instructions: Laceration (DC) Additional Instructions: As we discussed, you were seen today after a fall with trauma to your face. The stitches in your lip will dissolve with time. Please follow up with your dentist tomorrow 01/27/2024 for a re-evaluation. Return to the emergency department for: Further dental pain Bleeding that you cannot control Worsening headache Prescriptions: No Action albuterol sulfate 90 mcg/actuation HFA aerosol inhaler 2 puff inhalation Q4H PRN (Reason: asthma) lorazepam 0.5 mg tablet 0.5 mg PO BEDTIME PRN (Reason: Anxiety) omeprazole 20 mg capsule,delayed release(DR/EC) 20 mg PO DAILY irbesartan 75 mg tablet 37.5 mg PO DAILY bupropion HCl 300 mg tablet extended release 24 hr 300 mg PO DAILY gabapentin 300 mg capsule 300 mg PO BID Qty: 60 0RF Rx Instructions: Take 1 capsule at night for 1 week; if well tolerated, increase to twice daily Print Language: Setswana
[2024-01-26 12:00] VITALS: BP 150/72; PULSE 86; RESP 18; TEMP 36.8; O2SAT 98
[2024-01-26] MEDS: Lidocaine HCl 1%/Epi 1:100,000 10 ML VIAL INFILTRATI (12:29)
[2024-01-26] MEDS: Acetaminophen 325 MG TABLET 975 MG PO (13:17)
[2024-01-26 14:36] VITALS: BP 154/81; PULSE 73; RESP 18; TEMP 37; O2SAT 99
[2024-01-26] MEDS: Ibuprofen 400 MG TABLET PO (15:41)
[2024-01-26 15:46] VITALS: BP 154/81; PULSE 73; RESP 18; TEMP 37; O2SAT 99
== END 2024-01-26 15:46 | disposition home or self-care (01) ==
PROVIDERS: Emergency Provider Emergency Medicine; PCP Internal Medicine
DX: S09.90XA Unspecified injury of head, initial encounter (principal); S01.511A Laceration without foreign body of lip, initial encounter; W01.0XXA Fall on same level from slipping, tripping and stumbling without subsequent striking against object, initial encounter; I10 Essential (primary) hypertension; J45.909 Unspecified asthma, uncomplicated; Y93.01 Activity, walking, marching and hiking; Y92.480 Sidewalk as the place of occurrence of the external cause; Y99.9 Unspecified external cause status
CPT/HCPCS: 12014; 70450; 70486; 72125; 99284

== ENCOUNTER 2024-02-15 11:18 | Outpatient (AMB) | payer OTHER, SELFPAY ==
[2024-02-15 11:19] VITALS: BMI 35.2
--- NOTE | 2024-02-15 11:19 | MHC.OFFVIS ---
Vital Signs 02/15/24 11:19 Height 5 ft 4 in Weight 205 lb BMI 35.2 Intake Visit Reasons: OV-Left knee pain- follow up Intake Note: Joana is a 62 year old female presents with complaints of left knee pain. The patient describes her pain as sharp in nature. She did have a cortisone injection given into her left knee earlier this year. She states that she got good relief from the injection. She has tried Tylenol and anti-inflammatory medicines which gave her minimal relief. She would like to hold off on left total knee replacement surgery for as long as possible. Allergies No Known Allergies [No Known Allergies*] Allergy (Verified 01/26/24 11:15) Medication List - Last Reconciled 02/15/24 by Nicolas Medley MD albuterol sulfate 90 mcg/actuation 2 puffs inhalation Q4H PRN amoxicillin 2,000 mg (4 x 500 mg) PO ONCE bupropion HCl XL 300 mg PO DAILY gabapentin 300 mg PO BID irbesartan 37.5 mg PO DAILY lorazepam 0.5 mg PO BEDTIME PRN omeprazole 20 mg PO DAILY PFSH Medical History Stress incontinence GERD (gastroesophageal reflux disease) Depression Anxiety Asthma HTN (hypertension) Surgical History Total knee replacement status History of suburethral sling procedure History of appendectomy History of endometrial ablation Social History Alcohol intake: never Comment: medicated prior to leaving pacu Patient Tobacco Use Status: Never used Tobacco Current occupational status: unemployed 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 Gender identity: Female Female Reproductive History Menstrual Age of Menarche: 14 Physical Exam Vital Signs: BMI result Body Mass Index 35.2 Const Other: Well-nourished well-developed very friendly female awake alert and oriented x3 in no acute distress Extrem Other: Bilateral lower extremity examination shows good capillary refill, no skin lesions noted, normal sensation light touch Left knee examination shows a minimal effusion, palpable crepitus with range of motion, pain with range of motion, no instability Office Procedures Joint Injection/Aspiration Joint Injection/Aspiration Primary Site: left knee Prep: site was prepped using aseptic technique Injected: 40 mg of, DepoMedrol and 1% plain lidocaine Procedure: The patient tolerated the procedure well Coding - Large joint Procedure code (CPT) selection complete Results Reviewed Results Reviewed: X-rays of the patient's left knee taken previously show joint space narrowing, subchondral sclerosis, no acute bony abnormalities Assessment & Plan Assessment & Plan (1) Arthritis of left knee: Code(s): M17.12 - Unilateral primary osteoarthritis, left knee Category: Medical Plan Ms. Javier presents with left knee pain due to degenerative joint disease. I had a lengthy discussion with the patient regarding the treatment options. The risks and benefits of a left knee cortisone injection were discussed at length with the patient. The patient wished to proceed. She tolerated the injection well. She will continue with her home exercise program. She will contact me prior to her follow-up appointment in 3 months should any questions or concerns arise. Feel free to call me at any time should questions regarding her orthopedic management arise. I spent 21 minutes in reviewing the patient's records and imaging studies, seeing the patient and documenting in the medical record. Orders: Orders AMB Joint Injection/Aspiration Today M17.12 - Unilateral primary osteoarthritis, left knee Coding Level of Care Code Est Pt Level 3 (10692) Complex EM visit Add On G2211 Diagnoses Arthritis of left knee M17.12 CPT Codes Coding - Large joint: 22213 - Large joint ([id number])
== END 2024-02-15 11:44 | disposition home or self-care (01) ==
PROVIDERS: PCP Internal Medicine; Visit Provider Orthopaedic Surgery
DX: M17.12 Unilateral primary osteoarthritis, left knee (principal)
CPT/HCPCS: 20610; 99213

== ENCOUNTER → 2024-02-15 11:18 | Outpatient (BNVA) | payer OTHER, SELFPAY | PROVIDERS: PCP Internal Medicine; Visit Provider Orthopaedic Surgery | DX: M17.12 Unilateral primary osteoarthritis, left knee (principal) | CPT/HCPCS: 20610; J1010 ==

== ENCOUNTER 2024-05-15 11:06 | Outpatient (AMB) | payer OTHER, SELFPAY ==
--- NOTE | 2024-05-15 11:11 | A.OFFVIS_ITS ---
Vital Signs 05/15/24 11:12 Height 5 ft 4 in Weight 195 lb BMI 33.5 Intake Visit Reasons: OV- LT knee inj- last inj 02/15/24 Intake Note: Joana is a 63 year old female who presents today with complaints of left knee pain, patient reports last injection given 02/15/24 provided relief. Her pain has returned. She describes her pain as sharp in nature. The patient did un dergo right total knee replacement surgery approximately 3 years ago. She wishes to hold off on right total knee replacement surgery if at all possible. She has tried Tylenol and anti-inflammatory medicines which gave her minimal relief. Allergies No Known Allergies [No Known Allergies*] Allergy (Verified 05/15/24 11:13) Medication List - Last Reconciled 05/15/24 by Nicolas Medley MD albuterol sulfate 90 mcg/actuation 2 puffs inhalation Q4H PRN amoxicillin 2,000 mg (4 x 500 mg) PO ONCE bupropion HCl XL 300 mg PO DAILY gabapentin 300 mg PO BID irbesartan 37.5 mg PO DAILY lorazepam 0.5 mg PO BEDTIME PRN omeprazole 20 mg PO DAILY PFSH Medical History Stress incontinence GERD (gastroesophageal reflux disease) Depression Anxiety Asthma HTN (hypertension) Surgical History Total knee replacement status History of suburethral sling procedure History of appendectomy History of endometrial ablation Social History Alcohol intake: never Comment: medicated prior to leaving pacu Patient Tobacco Use Status: Never used Tobacco Current occupational status: unemployed 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 Gender identity: Female Female Reproductive History Menstrual Age of Menarche: 14 Physical Exam Vital Signs: BMI result Body Mass Index 33.5 Const Other: Well-nourished well-developed very friendly female awake alert and oriented x3 in no acute distress Extrem Other: Bilateral lower extremity examination shows good capillary refill, no skin lesions noted, normal sensation light touch Left knee examination shows a minimal effusion, palpable crepitus with range of motion, pain with range of motion, no instability Office Procedures AMB Joint Injection/Aspiration Joint Injection/Aspiration Primary Site: left knee Prep: site was prepped using aseptic technique Injected: 40 mg of, DepoMedrol and 1% plain lidocaine Procedure: The patient tolerated the procedure well Coding - Large joint Procedure code (CPT) selection complete Results Reviewed Results Reviewed: X-rays of the patient's left knee taken previously show joint space narrowing, subchondral sclerosis, no acute bony abnormalities Assessment & Plan Assessment & Plan (1) Arthritis of left knee: Code(s): M17.12 - Unilateral primary osteoarthritis, left knee Category: Medical Plan Ms. Javier presents with left knee pain due to degenerative joint disease. I had a lengthy discussion with the patient regarding the treatment options. The risks and benefits of a left knee cortisone injection were discussed at length with the patient. The patient wished to proceed. She tolerated the injection well. She will continue with her home exercise program. She will contact me prior to her follow-up appointment in 3 months should any questions or concerns arise. Feel free to call me at any time should questions regarding her orthopedic management arise. I spent 20 minutes in reviewing the patient's records and imaging studies, seeing the patient and documenting in the medical record. Orders: Orders AMB Joint Injection/Aspiration Today M17.12 - Unilateral primary osteoarthritis, left knee Coding Level of Care Code Est Pt Level 3 (82869) Complex EM visit Add On G2211 Diagnoses Arthritis of left knee M17.12 CPT Codes Coding - 11906 Large joint: 18709 - Large joint ([id number])
[2024-05-15 11:12] VITALS: BMI 33.5
--- OUTSIDE RECORDS SUMMARY | 2024-05-16 20:35 | XMS_ITS ---
Author Name [facility] Organization Unknown History of Medication Use Medication Directions Dispensed Refills Start Date End Date [facility] irbesartan 75 mg tablet TAKE 1/2 TABLET BY MOUTH ONCE A DAY 12/12/2022 active ibuprofen 800 mg tablet TAKE 1 BY MOUTH EVERY 8 HOURS FOR 5 DAYS 12/12/2022 active omeprazole 20 mg capsule,delayed release TAKE 1 CAPSULE BY MOUTH EVERY DAY 12/12/2022 active lorazepam 0.5 mg tablet TAKE 1 TABLET BY MOUTH EVERY DAY AT BEDTIME NEEDED 12/12/2022 active amoxicillin 250 mg capsule TAKE 1 BY MOUTH EVERY 8 HOURS FOR 10 DAYS 12/12/2022 completed bupropion HCl XL 300 mg 24 hr tablet, extended release TAKE 1 TABLET BY MOUTH EVERY DAY IN THE MORNING 12/12/2022 active lidocaine (PF) 10 mg/mL (1 %) injection solution Take 2 mL by injection route. 03/26/2023 active Kenalog 40 mg/mL suspension for injection Take 1 mL by injection route. 03/26/2023 active fluconazole 150 mg tablet 05/08/2023 active nitrofurantoin monohydrate/macrocry stals 100 mg capsule 05/08/2023 acti ve Paxlovid 300 mg (150 mg x 2)-100 mg tablets in a dose pack PER PCKG DIRECTIONS 12/12/2022 completed amoxicillin 500 mg tablet TAKE 4 TABS 1 HOUR PRIOR TO DENTAL APPOINTMENT 12/12/2022 active albuterol sulfate HFA 90 mcg/actuation aerosol inhaler INHALE 2 PUFF USING INHALER EVERY FOUR HOURS NEEDED 12/12/2022 active meloxicam 15 mg tablet TAKE 1 TABLET BY MOUTH EVERY DAY FOR 30 DAYS 12/12/2022 completed Problems Problem Status Onset Date Problem Type Date of Resoluti on Source Osteoarthritis of right hip joint active 2022-09-20 ProblemAct [facility] Pain of left knee joint active 2023-07-29 ProblemAct [facility] Pain of right knee joint active 2023-05-06 ProblemAct [facility] Chronic low back pain active 2022-10-07 ProblemAct [facility] Effusion of joint active 2023-04-06 ProblemAct [facility] 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
--- OUTSIDE RECORDS SUMMARY | 2024-05-16 20:35 | XMS_ITS | Data Portability ---
Author Organization [place] [facility] Brian Perez AONE Farley Address [address] [place] [address] Care Team Providers Care Mammography Supervisor Name Role Phone JUAN LUIS ZUNIGA Primary Care Provider Assessment Encounter Date Assessment Date Assessment LastModified by Organization Details LastModified Time 12/10/2022 12/10/2022 HPI : Patient is here for primary complaint of right knee pain. She underwent a right total knee replacement with Dr. Medley in April 2021. She states she always had some residual symptoms regarding the right knee. She does state that her symptoms are better compared to preoperatively. She states she is overall happy that she underwent a knee replacement. However she describes some tightness around the knee. Some aching. This is fairly constant. She was seen by Daphney Balderas. She got an ESR and CRP which were negative for any signs of infection. She also describes some left knee pain with known left knee arthritis. Physical Exam : Patient is well nourished, well- developed, in no acute distress, with appropriate mood and affect. The patient is AAOx3. The patient demonstrates good right knee motion and strength. The incision is well healed. The knee is stable to varus and valgus stress. The knee is stable to AP translation. Examination of the left knee shows crepitus. Medial joint line tenderness. Pain with patellar compression. Radiographs of the right knee from September 2022 demonstrate a right total knee replacement with components in appropriate position without any signs of hardware related complications. Assessment/Plan : Patient has some baseline pain following right total knee replacement. Exam, imaging, and history do not show any signs of implant related issues including loosening, malposition, instability, periprosthetic fracture, or infection. Overall she is much improved compared to preoperatively. I discussed with her that there are some baseline symptoms patients can have postoperatively. We will get a give her knee conditioning exercises. She has known left knee arthritis. She is interested in a gel injection. We will be ordering this, and she will follow-up with PA team for gel injection. Not available 12/10/2022 10:39:32 03/23/2023 03/23/2023 62-year-old female with left knee osteoarthritis for which she opted for cortisone injection at today's visit. This was performed after verbal consent was granted she tolerated this well aftercare instructions were discussed in detail. Follow-up visit 3 months time for repeat clinical exam. Regarding her right knee replacement she has ongoing symptoms of cracking ongoing symptoms of swelling this is since her examination back in December with Dr. Aguero. She states that she does have some warmth on occasion. I will send her for another ESR and CRP if this is negative there is no further work-up needed certainly she can schedule a late appointment with Dr. Aguero however he is already evaluated this in detail. I also explained to the patient that without any suggestive finding of infection aspiration would put her at risk for possible infection. Indirect care and treatment in conjunction with Dr. Aguero Additional treatment plan discussed with the patient (only initiated if in boldface font) otherwise not applicable. Treatment may include the following; - Provider focused nonsteroidal anti-inflammatory regimen (discussed were the pros, cons, benefits and risks as well as any black box warnings) in patients over 60 years old they should be very cautious in taking these medications due to potential decreased kidney function and or elevated blood pressure. - Analgesic pain medication for pain suppression (discussed were the pros, cons, benefits and risks as well as any black box warnings) - The use of topical pain relieving medication were discussed - The use of ice to decrease inflammation and pain - The use of assistive ambulatory devices for ambulation and fall prevention - Formal specific guided physical therapy program I reviewed my findings at length with the patient today. ??We discussed the nature and etiology of this problem along with current treatment options. We discussed the expected course and outcomes and what to expect. We also discussed risks and benefits. ?? All of their questions were answered today, and there was exhibited understanding and comprehension of all that was discussed. Time Spent: 10 minutes were spent reviewing previous imaging and charting. ??10 minutes were spent obtaining patient history. ??5 minutes were spent on physical exam. ??5??minutes were spent explaining diagnosis and assessment. Today's documentation was made using voice recognition software. This note may contain grammatical errors secondary to the software. Not available 03/24/2023 08:22:38 04/06/2023 04/06/2023 Pleasant 62-year-old female with slightly elevated CRP with ongoing right knee pain status post right total knee arthroplasty 04/17/[address] Medley. Patient opted for Synovasure analysis. Aspiration performed at today's visit with overall clear hazy fluid total volume 6 cc. Synovium was placed in Synovasure specimen tubes x3 and sent out. We will call her regarding her results if negative no further action needed if positive for infection she will follow-up with Dr. Aguero Patient was seen and evaluated by Daphney Balderas PA-C in indirect conjuction with Documenting Provider: Marino Aguero MD . He/She agrees with history, physical examination, tests/diagnostic imaging, and treatment plan. Additional treatment plan discussed with the patient (only initiated if in boldface font) otherwise not applicable. Treatment may include the following; - Provider focused nonsteroidal anti-inflammatory regimen (discussed were the pros, cons, benefits and risks as well as any black box warnings) in patients over 60 years old they should be very cautious in taking these medications due to potential decreased kidney function and or elevated blood pressure. - Analgesic pain medication for pain suppression (discussed were the pros, cons, benefits and risks as well as any black box warnings) - The use of topical pain relieving medication were discussed - The use of ice to decrease inflammation and pain - The use of assistive ambulatory devices for ambulation and fall prevention - Formal specific guided physical therapy program I reviewed my findings at length with the patient today. ??We discussed the nature and etiology of this problem along with current treatment options. We discussed the expected course and outcomes and what to expect. We also discussed risks and benefits. ?? All of their questions were answered today, and there was exhibited understanding and comprehension of all that was discussed. Time Spent: 10 minutes were spent reviewing previous imaging and charting. ??10 minutes were spent obtaining patient history. ??5 minutes were spent on physical exam. ??5??minutes were spent explaining diagnosis and assessment. Today's documentation was made using voice recognition software. This note may contain grammatical errors secondary to the software. Not available 04/06/2023 16:22:45 05/06/2023 05/06/2023 HPI : Patient is here for follow-up for her right knee pain about 2 years from right total knee replacement with Dr. Medley. She did end up getting a Synovasure aspiration to rule out periprosthetic joint infection. This was negative for any signs of infection. We discussed these results today. Her symptoms are the same. Describes some pain and some tightness and some numbness. These have been steady now. She has known left knee arthritis as well for which she had a cortisone injection 2 months ago. Physical Exam : Patient is well nourished, well- developed, in no acute distress, with appropriate mood and affect. The patient is AAOx3. The patient demonstrates good right knee motion and strength. The incision is well healed. The knee is stable to varus and valgus stress. The knee is stable to AP translation. Examination of the left knee shows crepitus. Medial joint line tenderness. Pain with patellar compression. Assessment/Plan : Patient has some continued symptoms regarding her right total knee replacement now 2 years from total knee replacement with Dr. Medley. Exam, imaging, and history do not show any signs of implant related issues including loosening, malposition, instability, periprosthetic fracture, or infection. We discussed that there are portion of patients who will have some residual symptoms following total knee replacement. I do not see any need for acute intervention. I recommend conservative management with Voltaren gel and exercises. She is can a follow-up in 2 months with PA team for her left knee. Not available 05/06/2023 11:10:56 07/28/2023 07/28/2023 62-year-old female with left knee osteoarthritis for which she opted for cortisone injection at today's visit. This was performed after verbal consent was granted she tolerated this well aftercare instructions were discussed in detail. Follow-up visit 3 months time for repeat clinical exam. Patient was seen and evaluated by Daphney Balderas PA-C in indirect conjuction with Documenting Provider: Marino Aguero MD . He/She agrees with history, physical examination, tests/diagnostic imaging, and treatment plan. Additional treatment plan discussed with the patient (only initiated if in boldface font) otherwise not applicable. Treatment may include the following; - Provider focused nonsteroidal anti-inflammatory regimen (discussed were the pros, cons, benefits and risks as well as any black box warnings) in patients over 60 years old they should be very cautious in taking these medications due to potential decreased kidney function and or elevated blood pressure. - Analgesic pain medication for pain suppression (discussed were the pros, cons, benefits and risks as well as any black box warnings) - The use of topical pain relieving medication were discussed - The use of ice to decrease inflammation and pain - The use of assistive ambulatory devices for ambulation and fall prevention - Formal specific guided physical therapy program I reviewed my findings at length with the patient today. ??We discussed the nature and etiology of this problem along with current treatment options. We discussed the expected course and outcomes and what to expect. We also discussed risks and benefits. ?? All of their questions were answered today, and there was exhibited understanding and comprehension of all that was discussed. Time Spent: 10 minutes were spent reviewing previous imaging and charting. ??10 minutes were spent obtaining patient history. ??5 minutes were spent on physical exam. ??5??minutes were spent explaining diagnosis and assessment. Today's documentation was made using voice recognition software. This note may contain grammatical errors secondary to the software. Not available 07/29/2023 08:25:36 Plan of Treatment Reminders Order Date Submit Date Provider Last Modified By Organization Details Last Modified Time Details Appointments None recorded. Lab C reactive protein, QN, serum or plasma 2022 023 PRASANTH Not available 3 08:08:49 ESR (erythrocyt e sedimentati on rate), blood 2022 023 PRASANTH Not available 3 10:30:10 Referral None recorded. Procedures intra-artic ular injection, knee, viscosupple ment (PROC) - Please check insurance for [employer] Author[employer] on, insurance preferred med.Knee Laterality: left 2022 023 [email or web address] Not available 3 15:44:20 Surgeries None recorded. Imaging XR, knee, 4 or more view 2022 023 [email or web address] [facility], [address], [place], [address], 3 12:06:13 XR, knee, 4 or more view 2022 023 [email or web address] [facility], [address], [address], [place], [address], 3 12:06:13 Medication Orders Kenalog 40 mg/mL suspension for injection 2022 023 [email or web address] [id number], [address] [place], [address], 3 14:42:37 lidocaine (PF) 10 mg/mL (1 %) injection solution 2022 023 [email or web address] [id number], [address] [place], [address], 3 14:42:37 Kenalog 40 mg/mL suspension for injection 2023 024 [email or web address] [id number], [address] [place], [address], 4 08:25:40 lidocaine (PF) 10 mg/mL (1 %) injection solution 2023 024 [email or web address] Not available 4 08:58:03 Patient TargetsNo targets recorded. Patient Instructions Encounter Date Encounter Id Patient Instructions Last Modified By Organization Details Last Modified Time 03/23/2023 [id number] Left knee x-ray moderate degenerative change overall well-maintained joint space on AP and Olivarez view she has patellofemoral joint space narrowing osteophyte formation subchondral sclerosis without acute bony abnormality. Right knee x-ray reveals well-seated well-positioned total knee arthroplasty without sign of loosening. No acute bony abnormality. Not available 03/24/2023 08:23:05 Reason for Referral None Reported. Results Created Date Observation Date Name Description Value Unit Range Abnormal Flag Note LastModifiedBy Organization Detail LastModifiedTime Result Notes None recorded. 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 2827508014690 9100 Active 2022 DAPHNEY BALDERAS PA-C [address], [place], [address], [place] [facility] 3 09:53:04 Osteoarthri tis of right hip joint 6774334225464 07 Active 2022 DAPHNEY BALDERAS PA-C [address], [place], [address], [place] [facility] 3 10:05:26 Pain of left knee joint 5036797820627 07 Active 2023 DAPHNEY BALDERAS PA-C [address], [place], [address], [place] [facility] 4 08:18:09 Chronic low back pain 063160652 Active 2022 DAPHNEY BALDERAS PA-C [address], [place], [address], [place] [facility] 3 16:33:54 Problem Notes None recorded. Procedures Surgical History Date Name Laterality Status Provider Name and Address Organization Details Recorded Time 07/28/2023 Knee Joint/Burs a Asp & Inj completed DAPHNEY BALDERAS PA-C [address], [place], [address], [place] [facility] 07/29/2023 08:18:06 04/06/2023 Knee Joint/Burs a Asp & Inj completed DAPHNEY BALDERAS PA-C [address] [facility],[address], [place], [address], [place] [facility] 04/06/2023 16:15:13 03/23/2023 Knee Joint/Burs a Asp & Inj completed DAPHNEY BALDERAS PA-C [address] [facility],[address], [place], [address], [place] [facility] 03/24/2023 08:20:47 Imaging Results None recorded. Procedure Notes None recorded. Medical Equipment None Reported. Allergies No known drug allergies Medications Name Sig Start Date Stop Date Status Note LastModified by Organization Details LastModified Time lidocaine 4 % topical patch Apply 1 patch every day by topical route as needed, for right knee pain. 2023 active Not Available Not Available Not Avai lable ibuprofen 800 mg tablet TAKE 1 BY MOUTH EVERY 8 HOURS FOR 5 DAYS active Not Available Not Available No t Available fluconazole 150 mg tablet active Not Available Not Available Not Available meloxicam 15 mg tablet TAKE 1 TABLET BY MOUTH EVERY DAY FOR 30 DAYS 09/20 completed Not Available Not Available Not Available amoxicillin 500 mg tablet TAKE 4 TABS 1 HOUR PRIOR TO DENTAL APPOINTME NT active Not Available Not Available No t Available Kenalog 40 mg/mL suspension for injection Take 1 mL by injection route. 2023 active Not Available Not Available Not Avai lable lorazepam 0.5 mg tablet TAKE 1 TABLET BY MOUTH EVERY DAY AT BEDTIME NEEDED active Not Available Not Available No t Available omeprazole 20 mg capsule,del ayed release TAKE 1 CAPSULE BY MOUTH EVERY DAY active Not Available Not Available No t Available irbesartan 75 mg tablet TAKE 1/2 TABLET BY MOUTH ONCE A DAY active Not Available Not Available No t Available amoxicillin 250 mg capsule TAKE 1 BY MOUTH EVERY 8 HOURS FOR 10 DAYS 09/20 completed Not Available Not Available Not Available albuterol sulfate HFA 90 mcg/actuati on aerosol inhaler INHALE 2 PUFFS INTO THE LUNGS USING INHALER EVERY 4 HOURS NEEDED active Not Available Not Available No t Available bupropion HCl XL 300 mg 24 hr tablet, extended release TAKE 1 TABLET BY MOUTH EVERY DAY IN THE MORNING active Not Available Not Available No t Available nitrofurant oin monohydrate /macrocryst als 100 mg capsule active Not Available Not Available Not Available lidocaine (PF) 10 mg/mL (1 %) injection solution Take 2 mL by injection route. 2023 active Not Available Not Available Not Avai lable Paxlovid 300 mg (150 mg x 2)-100 mg tablets in a dose pack PER PCKG DIRECTION S 09/20 completed Not Available Not Available Not Available Vitals Date Recorded Body height Body mass index (BMI) Body weight Provider Name and Address Organization Details Last Updated DateTime 05/06/2023 167.64 cm 34.4 kg/m2 25235.17 g Monster Pagannchard [place] [facility] 05/06/2023 10:43:42 Date Recorded Body weight Body mass index (BMI) Body height Provider Name and Address Organization Details Last Updated DateTime 12/10/2022 06513.17 g 34.4 kg/m2 167.64 cm Stephanie Hoang [place] [facility] 12/10/2022 10:13:24 Date Recorded Body height Provider Name an d Address Organization Details Last Updated DateTime 03/23/2023 167.64 cm Jennifer Green [place] [facility] 03/23/2023 14:07:34 Social History Question Answer Notes LastModified by Organizat ion Details LastModified Time Tobacco Smoking Status Never Smoker Monster Pagannchard null, [place] [facility] 09/20/2022 09:15:13 What Is Your Level Of Alcohol Consumption? None [email or web address] Information not available 09/20/2022 Do You Use Any Illicit Or Recreational Drugs? No [email or web address] Information not available 09/20/2022 Do You Or Have You Ever Used Any Other Forms Of Tobacco Or Nicotine? No [email or web address] Information not available 09/20/2022 Sex: Unknown Functional Status None recorded. Mental Status None recorded. Family History Relationship Description Onset Age of this Age Resolved Age Notes LastModified by Organization Details LastModified Time Mother Hypertensive disorder [email or web address] Not available 09:14:55 Medical History Condition Response Hypertension Y Asthma Y Gynecological HistoryNo gynecological history recorded. Obstetrics History GPAL:G 0 P 0 0 0 0 Past Encounters Encounter ID Performer Location Encounter Start Date Encounter Closed Date Diagnosis/Indication Diagnosis SNOMED-CT Code Diagnosis ICD10 Code [id number] MD ASHA Puentes [facility] [address] [address] 09/20/2022 08:51:15 09/20/2022 10:05:07 History of right total knee replacement 7436750285 905740 Z96.651 Pain in ri ght hip joint 0326620817 42359 M25.551 Chronic pa in following right total knee arthroplasty 8119997826 3498971 T84.84XD Osteoarthr itis of right hip joint 9409206139 62095 M16.11 [id number] MD ASHA Puentes [facility] [address] [address] 10/06/2022 15:37:18 10/06/2022 16:02:05 Chronic low back pain 487619147 M54.50 [id number] MD ASHA Puentes [facility] [address] [address] 12/10/2022 09:54:03 12/10/2022 10:37:11 Osteoarthritis of left knee joint 3297125557 21281 M17.12 Osteoarthr itis of right knee joint 4580590447 09743 M17.11 [id number] MD ASHA Puentes [facility] [address] [address] 03/23/2023 13:35:00 03/23/2023 14:49:57 History of right total knee replacement 2691203571 847978 Z96.651 Pain of le ft knee joint 2659387843 00734 M25.562 Chronic pa in following right total knee arthroplasty 4999942419 9174372 T84.84XD [id number] MD ASHA Puentes [facility] [address] [address] 04/06/2023 15:27:54 04/06/2023 15:56:31 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 4357478790 3675583 T84.84XD Effusion of joint 487302 008 M25.40 M25.461 [id number] MD ASHA Punetes [address] [facility] [address] [facility] [place] [address] 05/06/2023 10:16:44 05/06/2023 11:14:48 Pain of right knee joint 0462889283 29038 M25.561 Chronic pa in following right total knee arthroplasty 6845516621 9959162 T84.84XD [id number] MD ASHA Puentes [address] [facility] [address] [place] [address] 07/28/2023 11:02:47 07/28/2023 11:31:59 Pain of left knee joint 0421687103 92395 M25.562 Health Concerns Section Related Observation LastModified by Organization Detai ls LastModified Time None Recorded Concern Status LastModified by Organization Details LastModified Time None Recorded Advance Directives Directive None Recorded Payers Encounter Date Sequence Insurance Name Policy Number Policy Moreno Covered Member ID Moreno Member ID Guarantor Name 12/10/2022 1 [facility] Joana Javier [id number] 1 Joana Javier 03/23/2023 1 [facility] Joana Javier [id number] Joana Javier 04/06/2023 1 [facility] Joana Javier [id number] Joana Javier 05/06/2023 1 [facility] Joana Javier [id number] Joana Javier 07/28/2023 1 [facility] Joana Javier [id number] Joana Javier Notes Date Note Type Note Provider Name and Address Organization Details Recorded Time 3 text/html 62-year-old female ongoing left knee pain requesting cortisone injection history of arthritis. Complaints of right knee replacement performed on 04/17/2021 feels like there is cracking for here for evaluation. She has already seen Dr. Aguero regarding her total knee replacement. She states ongoing swelling and pain. Assessment/Plan: Dr. Aguero note atient has some baseline pain following right total knee replacement. Exam, imaging, and history do not show any signs of implant related issues including loosening, malposition, instability, periprosthetic fracture, or infection.Overall she is much improved compared to preoperatively. I discussed with her that there are some baseline symptoms patients can have postoperatively. We will get a give her knee conditioning exercises.She has known left knee arthritis. She is interested in a gel injection. We will be ordering this, and she will follow-up with PA team for gel injection.osteoarthritis of right knee jointosteoarthritis of left knee jointOrder intra-articular injection, knee, viscosupplement (PROC) DAPHNEY BALDERAS PA-C [address], [place], [address], [place] [facility] 03/24/2023 08:23:45 3 text/html Prior Visit Dr. Calvillo/Plan: 3Patient has some baseline pain following right total knee replacement. Exam, imaging, and history do not show any signs of implant related issues including loosening, malposition, instability, periprosthetic fracture, or infection.Overall she is much improved compared to preoperatively. I discussed with her that there are some baseline symptoms patients can have postoperatively. We will get a give her knee conditioning exercises.She has known left knee arthritis. She is interested in a gel injection. We will be ordering this, and she will follow-up with PA team for gel injection. HPI:62-year-old female status post right total knee arthroplasty 04/17/[address] Medley. Ongoing right knee pain previous laboratory studies ESR within normal range, CRP elevated 0.64 and 0.7 [address] Aguero on the above-noted date here for aspiration Synovasure to rule out indolent prosthetic joint infection. Patient denies fevers chills flulike symptoms warmth overlying the right knee joint. DAPHNEY BALDERAS PA-C [address], [place], [address], [place] [facility] 04/07/2023 07:33:31 4 text/html Pleasant 62-year-old female degenerative joint disease of the left knee gets good relief with cortisone injections. Is been greater than 3 months since her last cortisone injection. Pain is medial nature gets worse with walking. She is DAPHNEY BALDERAS PA-C [address] [place] [address], [place], [address], [place] - [facility] 07/29/2023 08:26:04 OBGyn Episode No OBEpisode recorded.
== END 2024-05-15 11:33 | disposition home or self-care (01) ==
PROVIDERS: PCP Internal Medicine; Visit Provider Orthopaedic Surgery
DX: M17.12 Unilateral primary osteoarthritis, left knee (principal)
CPT/HCPCS: 20610; 99213

== ENCOUNTER → 2024-05-15 11:06 | Outpatient (BNVA) | payer OTHER, SELFPAY | PROVIDERS: PCP Internal Medicine; Visit Provider Orthopaedic Surgery | DX: M17.12 Unilateral primary osteoarthritis, left knee (principal) | CPT/HCPCS: 20610; J1010; J2003 ==

== ENCOUNTER 2024-06-21 14:51 | Outpatient (REF) | payer OTHER, SELFPAY ==
[2024-06-21 15:24] LABS: MANUAL DIFF FLAG NO
[2024-06-21 15:45] LABS: Basophils Absolute Auto 0.1 X10*3/uL (0.0-0.2); Basophils Percent Auto 0.5 % (0-2); Eosinophils Absolute Auto 0.8 X10*3/uL (0.0-0.4); Eosinophils Percent Auto 8.3 % (0-4); Hematocrit 43.5 % (37.0-47.0); Hemoglobin 14.2 g/dl (12.0-16.0); Imm Gran Abs Auto 0.03 X10*3/uL (0.00-0.03); Imm Gran Pct Auto 0.3 % (0.0-0.4); Lymphocytes Absolute Auto 2.6 X10*3/uL (1.2-4.9); Lymphocytes Percent Auto 28.6 % (20-40); Mean Corpuscular HGB Conc 32.6 g/dl (31.0-35.0); Mean Corpuscular Hemoglobin 28.2 pg (27.0-33.0); Mean Corpuscular Volume 86.5 fL (80.0-98.0); Mean Platelet Volume 9.9 fL (9.4-12.3); Monocytes Absolute Auto 0.5 X10*3/uL (0.1-1.2); Monocytes Percent Auto 5.6 % (2-11); Neutrophils Absolute Auto 5.2 x10*3/uL (2.0-8.3); Neutrophils Percent Auto 56.7 % (45-73); Platelet Count 307 X10*3/uL (160-400); Red Blood Count 5.03 X10*6/uL (4.20-5.50); White Blood Count 9.2 X10*3/uL (4.8-10.8)
[2024-06-21 16:11] LABS: Alanine Aminotransferase 26 U/L (0-31); Albumin Level 3.8 g/dL (3.5-5.0); Anion Gap 11 (12-20); Aspartate Amino Transferase 20 U/L (5-31); Bilirubin Total 0.2 mg/dL (0.0-1.0); Blood Urea Nitrogen 9 mg/dL (9-16); Calcium 9.7 mg/dL (8.4-10.2); Carbon Dioxide 26 mmol/L (22-29); Chloride 108 mmol/L (96-108); Estimated Glomerular Filt Rate > 60; Glucose Random 142 mg/dL (60-115); Magnesium 2.1 mg/dL (1.6-2.6); Potassium 4.5 mmol/L (3.3-5.1); Sodium 140 mmol/L (135-145); Total Protein 7.6 g/dL (6.5-8.0)
[2024-06-21 16:24] LABS: Alkaline Phosphatase 99 U/L (39-117); D Dimer High Sensitivity 390 NG/ML
[2024-06-21 16:32] LABS: Free T4 (Free Thyroxine) 0.99 ng/dL (0.71-1.85); Thyroid Stimulating Hormone 0.41 uIU/mL (0.32-4.0)
--- OUTSIDE RECORDS SUMMARY | 2024-06-21 19:47 | XMS_ITS | Data Portability ---
Author Organization [place] [facility] Brian Perez AONE [place] Address [address] [place] [address] Care Team Providers Care Plant Engineering Supervisor Name Role Phone JUAN LUIS ZUNIGA [...] more view 2022 023 [email or web address] [facility], [address], [place], [address], 3 12:06:13 XR, knee, 4 or more view 2022 023 [email or web address] [facility], [address], [place], [address], 3 12:06:13 Medication Orders Kenalog 40 mg/mL suspension for injection 2022 023 [email or web address] [id number], [address] [place], [address], 3 14:42:37 lidocaine (PF) 10 mg/mL (1 %) injection solution 2022 023 [email or web address] [id number], [address] [place], [address], 3 14:42:37 Kenalog 40 mg/mL suspension for injection 2023 024 [email or web address] [id number], [address] [place], [address], 4 08:25:40 lidocaine (PF) 10 mg/mL (1 %) injection solution 2023 024 [email or web address] Not available 4 08:58:03 Patient TargetsNo targets recorded. 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 4952482723524 9100 Active 2022 DAPHNEY BALDERAS PA-C [address], [place], [address], [place] [facility] 3 09:53:04 Osteoarthri tis of right hip joint 1903447314193 07 Active 2022 DAPHNEY BALDERAS PA-C [address], [place], [address], [place] [facility] 3 10:05:26 Pain of left knee joint 5194342451334 07 Active 2023 DAPHNEY BALDERAS PA-C [address], [place], [address], [place] [facility] 4 08:18:09 Chronic low back pain 638072932 Active 2022 DAPHNEY BALDERAS PA-C [address], [place], [address], [place] [facility] 3 16:33:54 Problem Notes None recorded. Procedures Surgical History Date Name Laterality Status Provider Name and Address Organization Details Recorded Time 07/28/2023 Knee Joint/Burs a Asp & Inj completed DAPHNEY BALDERAS PA-C [address], [place], [address], [place] [facility] 07/29/2023 08:18:06 04/06/2023 Knee Joint/Burs a Asp & Inj completed DAPHNEY BALDERAS PA-C [address] [facility],[address], [place], [address], [place] [facility] 04/06/2023 16:15:13 03/23/2023 Knee Joint/Burs a Asp & Inj completed DAPHNEY BALDERAS PA-C [address] [facility],[address], [place], [address], [place] [facility] 03/24/2023 08:20:47 Imaging Results None recorded. [...] Updated DateTime 05/06/2023 167.64 cm 34.4 kg/m2 27221.17 g Monster Pagannchard [place] - [facility] 05/06/2023 10:43:42 Date Recorded Body weight Body mass index (BMI) Body height Provider Name and Address Organization Details Last Updated DateTime 12/10/2022 67719.17 g 34.4 kg/m2 167.64 cm Stephanie Hoang [place] - [facility] 12/10/2022 10:13:24 Date Recorded Body height Provider Name an d Address Organization Details Last Updated DateTime 03/23/2023 167.64 cm Jennifer Green [place] - [facility] 03/23/2023 14:07:34 Social History Question Answer Notes LastModified by Organizat ion Details LastModified Time Tobacco Smoking Status Never Smoker Monster Pagannchard null, [place] - [facility] 09/20/2022 09:15:13 What Is Your Level Of Alcohol Consumption? None [email or web address] Information not available 09/20/2022 Do You Use Any Illicit Or Recreational Drugs? No [email or web address] Information not available 09/20/2022 Do You Or Have You Ever Used Any Other Forms Of Tobacco Or Nicotine? No [email or web address] Information not available 09/20/2022 Sex: Unknown Functional Status None recorded. Mental Status None recorded. Family History Relationship Description Onset Age of this Age Resolved Age Notes LastModified by Organization Details LastModified Time Mother Hypertensive disorder [email or web address] Not available 09:14:55 Medical History Condition Response Asthma Y Hypertension Y Gynecological HistoryNo gynecological history recorded. Obstetrics History GPAL:G 0 P 0 0 0 0 Past Encounters Encounter ID Performer Location Encounter Start Date Encounter Closed Date Diagnosis/Indication Diagnosis SNOMED-CT Code Diagnosis ICD10 Code Diagnosis [id number] [facility] [address] [address] 09/20/2022 08:51:15 09/20/2022 10:05:07 History of right total knee replacement 9278620752 579403 Z96.651 Pain in ri ght hip joint 6055004743 61155 M25.551 Chronic pa in following right total knee arthroplasty 2238439448 1285805 T84.84XD Osteoarthr itis of right hip joint 6475827147 63932 M16.11 [id number] MD ASHA Puentes [facility] [address] [address] 10/06/2022 15:37:18 10/06/2022 16:02:05 Chronic low back pain 550914788 M54.50 [id number] MD ASHA Puentes [facility] [address] [address] 12/10/2022 09:54:03 12/10/2022 10:37:11 Osteoarthritis of left knee joint 7384873518 24532 M17.12 Osteoarthr itis of right knee joint 2756535795 09591 M17.11 [id number] [facility] [address] [address] 03/23/2023 13:35:00 03/23/2023 14:49:57 History of right total knee replacement 9921056962 865428 Z96.651 Pain of le ft knee joint 6090179900 79115 M25.562 Chronic pa in following right total knee arthroplasty 1896411492 8243641 T84.84XD [id number] [facility] [address] [address] 04/06/2023 15:27:54 04/06/2023 15:56:31 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 2973027289 5267824 T84.84XD Effusion of joint 828379 008 M25.40 M25.461 Synovasure sent off [id number] MD ASHA Puentes [facility] 299 [facility] [address] [place] [address] 05/06/2023 10:16:44 05/06/2023 11:14:48 Pain of right knee joint 4056291898 86195 M25.561 Chronic pa in following right total knee arthroplasty 3678105404 6797708 T84.84XD [id number] MD ASHA Puentesshayy arce 299 [facility] [address] [place] [address] 07/28/2023 11:02:47 07/28/2023 11:31:59 Pain of left knee joint 9180135470 53379 M25.562 Health Concerns Section Related Observation LastModified by Organization Detai ls LastModified Time None Recorded Concern Status LastModified by Organization Details LastModified Time None Recorded Advance Directives Directive None Recorded Payers Encounter Date Sequence Insurance Name Policy Number Policy Moreno Covered Member ID Moreno Member ID Guarantor Name 12/10/2022 1 [facility] Joana Javier [id number] Joana Javier 03/23/2023 1 [facility] Joana Javier [id number] Joana Javier 04/06/2023 1 [facility]) Joana Javier [id number] Joana Javier 05/06/2023 1 [facility]) Joana Javier [id number] Joana Javier 07/28/2023 1 [facility]) Joana Javier [id number] Joana aJvier Notes Date Note Type Note Provider Name [...] knee, viscosupplement (PROC) DAPHNEY BALDERAS PA-C [address] [facility],[address], [place], [address], [place] [facility] 03/24/2023 08:23:45 3 text/html Prior Visit [...] DAPHNEY BALDERAS PA-C [address], [place], [address], [place] [facility] 04/07/2023 07:33:31 4 text/html Pleasant 62-year-old female degenerative joint disease of the left knee gets good relief with cortisone injections. Is been greater than 3 months since her last cortisone injection. Pain is medial nature gets worse with walking. She is DAPHNEY BALDERAS PA-C [address] [place] [address],[place] [address], [place], [address], [place] [facility] 07/29/2023 08:26:04 OBGyn Episode No OBEpisode recorded.
== END 2024-06-21 14:52 | disposition home or self-care (01) ==
LOC: HO.LAB 14:51
PROVIDERS: PCP Internal Medicine; Visit Provider Internal Medicine
DX: R00.2 Palpitations (principal); I10 Essential (primary) hypertension
CPT/HCPCS: 36415; 80053; 83735; 84439; 84443; 85025; 85379

== ENCOUNTER 2024-08-15 11:16 | Outpatient (AMB) | payer OTHER, SELFPAY ==
--- NOTE | 2024-08-15 11:20 | MHC.OFFVIS ---
Vital Signs 08/15/24 11:24 Height 5 ft 4 in Weight 195 lb BMI 33.5 Intake Visit Reasons: INJ- LT knee inj- last inj 05/15/24 Intake Note: Joana is a 63 year old female presents for a left knee arthritis follow-up. At her last visit on 05/15/24 she was given a left knee steroid injection. She states that her pain has returned. She describes her left knee pain as sharp in nature. She has tried Tylenol, gabapentin and meloxicam which gave her mild relief. She denies any locking or giving way. She wishes to hold off on surgery if at all possible. Allergies No Known Allergies [No Known Allergies*] Allergy (Verified 08/15/24 11:24) Medication List - Last Reconciled 08/15/24 by Nicolas Medley MD albuterol sulfate 90 mcg/actuation 2 puffs inhalation Q4H PRN amoxicillin 2,000 mg (4 x 500 mg) PO ONCE bupropion HCl XL 300 mg PO DAILY gabapentin 300 mg PO BID irbesartan 37.5 mg PO DAILY lorazepam 0.5 mg PO BEDTIME PRN omeprazole 20 mg PO DAILY PFSH Medical History Stress incontinence GERD (gastroesophageal reflux disease) Depression Anxiety Asthma HTN (hypertension) Surgical History Total knee replacement status History of suburethral sling procedure History of appendectomy History of endometrial ablation Social History Alcohol intake: never Comment: medicated prior to leaving pacu Patient Tobacco Use Status: Never used Tobacco Current occupational status: unemployed 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 Gender identity: Female Female Reproductive History Menstrual Age of Menarche: 14 Physical Exam Vital Signs: BMI result Body Mass Index 33.5 Const Other: Well-nourished well-developed very friendly female awake alert and oriented x3 in no acute distress Extrem Other: Bilateral lower extremity examination shows good capillary refill, no skin lesions noted, normal sensation light touch Left knee examination shows a minimal effusion, palpable crepitus with range of motion, pain with range of motion, no instability Office Procedures AMB Joint Injection/Aspiration Joint Injection/Aspiration Primary Site: left knee Prep: site was prepped using aseptic technique Injected: 40 mg of, DepoMedrol and 1% plain lidocaine Procedure: The patient tolerated the procedure well Coding - Large joint Procedure code (CPT) selection complete Results Reviewed Results Reviewed: X-rays of the patient's left knee taken previously show joint space narrowing, subchondral sclerosis, no acute bony abnormalities Assessment & Plan Assessment & Plan (1) Arthritis of left knee: Code(s): M17.12 - Unilateral primary osteoarthritis, left knee Category: Medical Plan Ms. Javier presents with left knee pain due to degenerative joint disease. The risks and benefits of a left knee cortisone injection were discussed at length with the patient. The patient wished to proceed. She tolerated the injection well. She will continue with her exercise program. She will contact me prior to her follow-up appointment in 3 months should any questions or concerns arise. Feel free to call me at any time should questions regarding her orthopedic management arise. I spent 22 minutes in reviewing the patient's records and imaging studies, seeing the patient and documenting in the medical record. Orders: Orders AMB Joint Injection/Aspiration Today M17.12 - Unilateral primary osteoarthritis, left knee Medications: New meloxicam 15 mg PO DAILY PRN 30 tabs 3RF pain Coding Level of Care Code Est Pt Level 3 (74123) Complex EM visit Add On G2211 Diagnoses Arthritis of left knee M17.12 CPT Codes Coding - Large joint: 98149 - Large joint ([id number])
[2024-08-15 11:24] VITALS: BMI 33.5
--- OUTSIDE RECORDS SUMMARY | 2024-08-15 13:18 | XMS_ITS | Clinical Summary ---
Author Organization [facility] ity Address [address] [place] [address] Care Team Providers Care Mortgage Clerk Name Role Phone Sherif Valentine MD Primary Care Provider [phone] Medical History Medical History Date Comments Asthma DX:Asthma Hypertension DX:Hypertension Family History Medical History Relation Name Comments Hypertension Mother Relation Name Status Comments Mother Social History Tobacco Use Types Packs/Day Years Used Date Smoking Tobacco: Never Assessed Comments Unknown Sex and Gender Information Value Date Recorded Sex Assigned at Not on file Legal Sex Female 1:44 AM EST Gender Identity Not on file Sexual Orientation Not on file Obstetrics History Last Filed Vital Signs Vital Sign Reading Time Taken Comments Blood Pressure - - Pulse - - Temperature - - Respiratory Rate - - Oxygen Saturation - - Inhaled Oxygen Concentration - - Weight 97.5 kg (215 lb) 03/23/2022 1:26 PM EDT Height 162.6 cm (5' 4 ) 03/23/2022 1:26 PM EDT Body Mass Index 36.9 03/23/2022 1:26 PM EDT Plan of Treatment Health Maintenance Due Date Last Done Comments Breast Cancer Screening 1960 DTaP,Tdap,and Td Vaccines (1 - Tdap) 1980 Cervical Cancer Screening: P ap Smear 1982 Pneumococcal Vaccine: 50+ Ye ars (1 of 1 - PCV) 12/14/2011 Zoster Vaccines (1 of 2) 12/14/2011 Colorectal Cancer Screening: Colonoscopy 05/09/2022 Depression Screening 05/09/2022 HIV Screening 05/09/2022 Hepatitis C Screening 05/09/2022 Social Influencers of Health Screening 05/09/2022 COVID-19 Vaccine ( - 2023-2 5 season) 2024 Influenza Vaccine (#1) 2024 RSV Immunization Patients 60 + Years Old (1 - 1-dose 75+ series) 2036 HIB Vaccines Aged Out No longer eligi ble based on patient's age to complete this topic HPV Vaccines Aged Out No longer eligi ble based on patient's age to complete this topic Hepatitis A Vaccines Aged Out No long er eligible based on patient's age to complete this topic Hepatitis B Vaccines Aged Out No long er eligible based on patient's age to complete this topic IPV Vaccines Aged Out No longer eligi ble based on patient's age to complete this topic MMR Vaccines Aged Out No longer eligi ble based on patient's age to complete this topic Meningococcal ACWY Vaccine Aged Out N o longer eligible based on patient's age to complete this topic Meningococcal B Vacine Aged Out No lo nger eligible based on patient's age to complete this topic Pneumococcal Vaccine: Pediat rics (0 to 5 Years) and At-Risk Patients (6 to 64 Years) Aged Out No longer eligible b ased on patient's age to complete this topic RSV Immunization Patients Un kenny 20 months Aged Out No longer eligible b ased on patient's age to complete this topic Varicella Vaccines Aged Out No longer eligible based on patient's age to complete this topic Advance Directives Documents on File Type Date Recorded Patient Courtroom Reporter Expl anation Health Care Decision (hx) 04/28/2021 AD ARMENDARIZ DIRECTIVE Health Care Decision (hx) 04/28/2021 AD ARMENDARIZ DIRECTIVE Health Care Decision (hx) 04/18/2021 AD ARMENDARIZ DIRECTIVE Health Care Decision (hx) 04/18/2021 AD ARMENDARIZ DIRECTIVE Health Care Decision (hx) 04/18/2021 AD ARMENDARIZ DIRECTIVE Health Care Decision (hx) 04/17/2021 AD ARMENDARIZ DIRECTIVE Health Care Decision (hx) 04/17/2021 AD ARMENDARIZ DIRECTIVE Health Care Decision (hx) 04/17/2021 AD ARMENDARIZ DIRECTIVE Care Teams Mortgage Clerk Relationship Specialty Start Date End Date Sherif Valentine MD [address] [place] [address] Dr Rizwana [place] PCP - General Sheriff Sergeant 01/16/21
--- OUTSIDE RECORDS SUMMARY | 2024-08-15 13:18 | XMS_ITS ---
Author Organization [facility] [place] Care Team Providers Care Lode Miner Name Role Phone Sherif Valentine Unavailable Unavailable Ramón Lancaster Unavailable Unavailable Saima, Marianela Unavailable Unavailable Allergies and adverse reactions Code CodeSystem Substance Reaction Severity StartDate Concern Status Shell Fish Unknown 04/20/2021 active Care Team Name Role Address Phone Organization Dates Ramón Lancaster PCP [address], [address], [place] (Office): : [facility] 04/25/2021 - 04/29/2021 Sherif Valentine Attending Physician [address] [place] [address], [address], [place], [address], [place] (Office): : [facility] 04/25/2021 - 04/29/2021 Marianela Landaverde Attending Physician [address] [facility] [address], [place], [address], [place] (Office): : [facility] 04/25/2021 - 04/29/2021 Immunizations Immunization Status Vaccine Details Vaccine Code CodeSystem Jarrett e Notes TB 1 Step Mantoux (PPD) completed tuberculin skin test; unspecified formulation lotNumber: [id number] expiry: 09/25/2022 Mfg: SANOFI PASTEUR INc Given 0.1 ml Right Forearm intradermally 98 CVX created date: 04/21/2021 consent date: 04/21/2021 administere d date: 04/21/2021 SARS-COV-2 (COVID-19) completed SARS-COV-2 (COVID-19) vaccine, mRNA, spike protein, LNP, preservative free, 10 mcg/0.2mL dose, patti-sucrose formulation Mfg: MODERNA Step 2 of Multi-step with next step required 218 CVX created date: 04/21/2021 administere d date: 09/05/2020 SARS-COV-2 (COVID-19) completed SARS-COV-2 (COVID-19) vaccine, mRNA, spike protein, LNP, preservative free, 10 mcg/0.2mL dose, patti-sucrose formulation Mfg: MODERNA Step 1 of Multi-step with next step required 218 CVX created date: 04/21/2021 administere d date: 08/06/2020 Mental Status Section Date Assessment Total Score Description 04/29/2021 BIMS 15 cognitively int act CAM 0 No delirium ind icated PHQ-9 00 04/26/2021 BIMS 15 cognitively int act CAM 0 No delirium ind icated PHQ-9 00 Problems Problem # Description Date of onset Resolved Date Code CodeSystem Concern Status 1 DIFFICULTY IN WALKING, NOT ELSEWHERE CLASSIFIED 04/25/[address] active 2 MUSCLE WASTING AND ATROPHY, NOT ELSEWHERE CLASSIFIED, LEFT SHOULDER 04/25/[address] active 3 MUSCLE WASTING AND ATROPHY, NOT ELSEWHERE CLASSIFIED, RIGHT SHOULDER 04/25/[address] active 4 MUSCLE WASTING AND ATROPHY, NOT ELSEWHERE CLASSIFIED, RIGHT THIGH 04/25/[address] active 5 OTHER REDUCED MOBILITY 04/25/[address] active 6 UNSPECIFIED ABNORMALITIES OF GAIT AND MOBILITY 04/25/[address] active 7 UNSTEADINESS ON FEET 04/25/[address] active 8 AFTERCARE FOLLOWING JOINT REPLACEMENT SURGERY 04/20/[address] active 9 ANXIETY DISORDER, UNSPECIFIED 04/20/[address] active 10 BODY MASS INDEX [BMI] 38.0-38.9, ADULT 04/20/[address] active 11 ESSENTIAL (PRIMARY) HYPERTENSION 04/20/[address] active 12 GASTRO-ESOPHAGEAL REFLUX DISEASE WITHOUT ESOPHAGITIS 04/20/[address] active 13 MAJOR DEPRESSIVE DISORDER, SINGLE EPISODE, UNSPECIFIED 04/20/[address] active 14 OBESITY, UNSPECIFIED 04/20/[address] active 15 PRESENCE OF RIGHT ARTIFICIAL KNEE JOINT 04/20/[address] active 16 UNILATERAL PRIMARY OSTEOARTHRITIS, RIGHT KNEE 04/20/[address] active 17 UNSPECIFIED ASTHMA, UNCOMPLICATED 04/20/[address] active Reason for Referral No Reasons for Referral Entered Social History Social History Observation Description Start Date End Date Code Code System Current Smoking Status Tobacco smoking consumption unknown 014352345 SNOMED CT Sex Assigned At Female 1960 69133-9 [facility] Vital Signs Code Code System Vitals Name Values and Units Timing Information 58789-9 [facility] Pain Level Value=1.0 04/29/2021 8462-4 [facility] Blood Pressure-Diastolic Value=81 Un its=mmHg 04/29/2021 8480-6 [facility] Blood Pressure-Systolic Gzoib=620 Un its=mmHg 04/29/2021 8867-4 [facility] Heart rate Value=88.0 Units=/min 9279-1 [facility] Respiratory Rate Value=16.0 Units=/m in 04/29/2021 8310-5 [facility] Body Temperature Value=97.5 Units=?? F 04/29/2021 63427-5 [facility] O2 % BldC Oximetry Value=95.0 Units= % 04/29/2021 8302-2 [facility] Height Value=58.0 Units=Inches 04/21/2021 43899-4 [facility] Weight Efcpr=740.4 Units=Lbs
--- OUTSIDE RECORDS SUMMARY | 2024-08-15 13:18 | XMS_ITS | Clinical Summary ---
Author Organization [facility] Address [address] [place], [place] [id number] Care Team Providers Care Client Delivery Specialist Name Role Phone Sherif Valentine MD Primary Care Provider Allergies Active Allergy Reactions Criticality Noted Date Comments Nka 04/20/2021 Medications Medication Sig Dispensed Refills Start Date End Date Status buPROPion (WELLBUTRIN XL) 300 MG 24 hr tablet TAKE 1 TABLET BY MOUTH EVERY DAY IN THE MORNING 0 01/20/2021 Active montelukast (SINGULAIR) 10 MG tablet Take 10 mg by mouth daily. 0 01/21/2021 Active terazosin (HYTRIN) 1 MG capsule TAKE 1 TAB (1 MG) BY MOUTH BEDTIME 0 12/25/2020 Active irbesartan (AVAPRO) 75 MG tablet Take 75 mg by mouth every night at bedtime. 0 Active Advair Diskus 250-50 MCG/DOSE DISKUS 0 03/13/2021 Active LORazepam (ATIVAN) 0.5 MG tablet 0 02/11/2021 Active omeprazole (PriLOSEC) 20 MG capsule 0 03/20/2021 Active amoxicillin (AMOXIL) 500 MG tablet Take 4 tabs 1 hour prior to dental appointment 20 tablet 3 05/05/2021 Active oxyCODONE (ROXICODONE) 5 MG immediate release tablet Take 1-2 tabs every 6 hours as needed for pain 36 tablet 0 05/21/2021 Active celecoxib (CeleBREX) 200 MG capsule Take 1 capsule (200 mg total) by mouth daily. 30 capsule 2 08/13/2021 Active ProAir HFA 108 (90 Base) MCG/ACT inhaler INHALE 2 PUFF USING INHALER EVERY FOUR HOURS NEEDED 0 07/10/2021 Active meloxicam (MOBIC) 15 MG tablet Take 1 tablet (15 mg total) by mouth daily. for 30 days 0 02/04/2022 Active Active Problems Problem Noted Date Diagnosed Date Chronic knee pain after tota l replacement of right knee joint 10/29/2021 Arthritis of knee, right 02/04/2021 Family History Medical History Relation Name Comments Hypertension Mother Relation Name Status Comments Mother Social History Tobacco Use Types Packs/Day Years Used Date Smoking Tobacco: Never Assessed Sex and Gender Information Value Date Recorded Sex Assigned at Not on file Gender Identity Not on file Sexual Orientation Not on file Job Start Date Occupation Industry Not on file Not on file Not on file Last Filed Vital Signs Vital Sign Reading [...] Health Maintenance Due Date Last Done Comments Hepatitis C Screening 1961 Depression Screening 1973 BMI Counseling 12/14/1979 Preventative Health Evaluation 12/14/1979 DTap / Tdap / Td (1 - Tdap) 1980 Cervical Cancer Screening (Pap Smear) 1982 Colon Cancer Screening (Colonoscopy) 2006 Breast Cancer Screening (Mammogram) 12/14/2011 Shingrix-Zoster Vaccine (1 o f 2) 12/14/2011 COVID-19 Vaccine (#1) 10/03/2020 09/05/2020 , 08/06/2020 Influenza Vaccine (#1) 2024 RSV Adult > 60+ Yrs or (1 - 1-dose 75+ series) 2036 Hepatitis B Vaccines Aged Out No long er eligible based on patient's age to complete this topic Pneumococcal Vaccine Aged Out No long er eligible based on patient's age to complete this topic RSV Ped < 20 months Aged Out No longe r eligible based on patient's age to complete this topic Care Teams Client Delivery Specialist Relationship Specialty Start Date End Date Sherif Valentine MD [address] [place] [address] [place] [id number] PCP - General Terrazzo Mechanic Helper 01/16/21
--- OUTSIDE RECORDS SUMMARY | 2024-08-15 13:18 | XMS_ITS | Data Portability ---
Author Organization [facility] Brian Perez [facility] Address [address] [place] [address] Care Team Providers Care Airline Captain Name Role Phone JUAN LUIS ZUNIGA Primary [...] findings at length with the patient today. ? ? ?We discussed the nature and etiology of this problem along with current treatment options. We discussed the expected course and outcomes and what to expect. We also discussed risks and benefits. ? ? ? All of their questions were answered today, and there was exhibited understanding and comprehension of all that was discussed. Time Spent: 10 minutes were spent reviewing previous imaging and charting. ? ? ?10 minutes were spent obtaining patient history. ? ? ?5 minutes were spent on physical exam. ? ? ?5? ? ?minutes were spent explaining diagnosis and assessment. Today's [...] findings at length with the patient today. ? ? ?We discussed the nature and etiology of this problem along with current treatment options. We discussed the expected course and outcomes and what to expect. We also discussed risks and benefits. ? ? ? All of their questions were answered today, and there was exhibited understanding and comprehension of all that was discussed. Time Spent: 10 minutes were spent reviewing previous imaging and charting. ? ? ?10 minutes were spent obtaining patient history. ? ? ?5 minutes were spent on physical exam. ? ? ?5? ? ?minutes were spent explaining diagnosis and assessment. Today's [...] findings at length with the patient today. ? ? ?We discussed the nature and etiology of this problem along with current treatment options. We discussed the expected course and outcomes and what to expect. We also discussed risks and benefits. ? ? ? All of their questions were answered today, and there was exhibited understanding and comprehension of all that was discussed. Time Spent: 10 minutes were spent reviewing previous imaging and charting. ? ? ?10 minutes were spent obtaining patient history. ? ? ?5 minutes were spent on physical exam. ? ? ?5? ? ?minutes were spent explaining diagnosis and assessment. Today's [...] left 2022 023 [email or web address] Not available 15:44:20 Surgeries None recorded. Imaging XR, knee, 4 or more view 2022 023 [email or web address] [facility], [address], [place], [address], 3 12:06:13 XR, knee, 4 or more view 2022 023 [email or web address] [facility], [address], [place], [address], 3 12:06:13 Medication Orders Kenalog 40 mg/mL suspension for injection 2023 024 [email or web address] [id number], [address] [place], [address], 4 08:25:40 lidocaine (PF) 10 mg/mL (1 %) injection solution 2023 024 [email or web address] Not available 4 08:58:03 Kenalog 40 mg/mL suspension for injection 2022 023 [email or web address] [id number], [address] [place], [address], 3 14:42:37 lidocaine (PF) 10 mg/mL (1 %) injection solution 2022 023 [email or web address] [id number], [address] [place], [address], 3 14:42:37 Patient TargetsNo targets recorded. Patient Instructions Encounter Date Encounter Id Patient Instructions Last Modified By Organization Details Last Modified Time 03/23/2023 [id number] Left knee x-ray moderate degenerative change overall [...] Organization Details Recorded Time Effusion of joint 404937675 Active 2022 DAPHNEY BALDERAS PA-C [address], [place], [address], [place] [facility] 3 16:15:39 Pain of right knee joint 4395316161401 00 Active 2022 Marino Aguero MD [address], [place], [address], [place] [facility] 3 11:09:13 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 7758937289475 9100 Active 2022 DAPHNEY BALDERAS PA-C [address], [place], [address], [place] [facility] 3 09:53:04 Osteoarthri tis of right hip joint 7994275356126 07 Active 2022 DAPHNEY BALDERAS PA-C [address], [place], [address], [place] [facility] 3 10:05:26 Pain of left knee joint 2430726848134 07 Active 2023 DAPHNEY BALDERAS PA-C [address], [place], [address], [place] [facility] 4 08:18:09 Chronic low back pain 916307469 Active 2022 DAPHNEY BALDERAS PA-C [address], [place], [address], [place] [facility] 3 16:33:54 Problem Notes None recorded. Procedures Surgical History Date Name Laterality Status Provider Name and Address Organization Details Recorded Time 07/28/2023 Knee Joint/Burs a Asp & Inj completed DAPHNEY BALDERAS PA-C [address], [place], [address], [place] [facility] 07/29/2023 08:18:06 04/06/2023 Knee Joint/Burs a Asp & Inj completed DAPHNEY BALDERAS PA-C [address] [facility],[address], [place], [address], [place] [facility] 04/06/2023 16:15:13 03/23/2023 Knee Joint/Burs a Asp & Inj completed DAPHNEY BALDERAS PA-C [address] [facility],[address], [place], [address], [place] [facility] 03/24/2023 08:20:47 Imaging Results None recorded. [...] Updated DateTime 05/06/2023 167.64 cm 34.4 kg/m2 34813.17 g Monster Griffiths [facility] 05/06/2023 10:43:42 Date Recorded Body weight Body mass index (BMI) Body height Provider Name and Address Organization Details Last Updated DateTime 12/10/2022 88923.17 g 34.4 kg/m2 167.64 cm Stephanie Hoang [facility] 12/10/2022 10:13:24 Date Recorded Body height Provider Name an d Address Organization Details Last Updated DateTime 03/23/2023 167.64 cm Jennifer Green [facility] 03/23/2023 14:07:34 Social History Question Answer Notes LastModified by Organizat ion Details LastModified Time Tobacco Smoking Status Never Smoker Monster Griffiths [facility], [facility] 09/20/2022 09:15:13 What Is Your Level Of Alcohol Consumption? None [email or web address] Information not available 09/20/2022 Do You Use Any Illicit Or Recreational Drugs? No [email or web address] Information not available 09/20/2022 Do You Or Have You Ever Used Any Other Forms Of Tobacco Or Nicotine? No [email or web address] Information not available 09/20/2022 Sex: Unknown Functional Status None recorded. Mental Status None recorded. Family History Relationship Description Onset Age of this Age Resolved Age Notes LastModified by Organization Details LastModified Time Mother Hypertensive disorder [email or web address] Not available 09:14:55 Medical History Condition Response Hypertension Y Asthma Y Gynecological HistoryNo gynecological history recorded. Obstetrics History GPAL:G 0 P 0 0 0 0 Past Encounters Encounter ID Performer Location Encounter Start Date Encounter Closed Date Diagnosis/Indication Diagnosis SNOMED-CT Code Diagnosis ICD10 Code Diagnosis Note [id number] MD ASHA Puentesshayy [address] [facility] [address] [place] [address] 09/20/2022 08:51:15 09/20/2022 10:05:07 History of right total knee replacement 7045768596 300410 Z96.651 Pain in ri ght hip joint 9632635533 64200 M25.551 Chronic pa in following right total knee arthroplasty 4982962549 8556345 T84.84XD Osteoarthr itis of right hip joint 6449746935 14797 M16.11 [id number] MD ASHA Puentes [facility] 299 [facility] [address] [place] [address] 10/06/2022 15:37:18 10/06/2022 16:02:05 Chronic low back pain 486574161 M54.50 [id number] MD ASHA Puentes [facility] [address] [address] 12/10/2022 09:54:03 12/10/2022 10:37:11 Osteoarthritis of left knee joint 9296822411 66548 M17.12 Osteoarthr itis of right knee joint 1329287209 98517 M17.11 [id number] MD ASHA Puentes [facility] [address] [address] 03/23/2023 13:35:00 03/23/2023 14:49:57 History of right total knee replacement 7953419874 102497 Z96.651 Pain of le ft knee joint 1850099564 93272 M25.562 Chronic pa in following right total knee arthroplasty 8792032998 7492033 T84.84XD [id number] MD ASHA Puentes [facility] [address] [address] 04/06/2023 15:27:54 04/06/2023 15:56:31 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 8120347216 5266298 T84.84XD Effusion of joint 555476 008 M25.40 M25.461 Synovasure sent off [id number] MD ASHA Puentes [facility] 299 [facility] [address] [place] [address] 05/06/2023 10:16:44 05/06/2023 11:14:48 Pain of right knee joint 3978420383 67646 M25.561 Chronic pa in following right total knee arthroplasty 0490882721 4138268 T84.84XD [id number] MD ASHA Puent[place]y [place] [address] [facility] [address] [place] [address] 07/28/2023 11:02:47 07/28/2023 11:31:59 Pain of left knee joint 0345336777 66465 M25.562 Health Concerns Section Related Observation LastModified by Organization Detai ls LastModified Time None Recorded Concern Status LastModified by Organization Details LastModified Time None Recorded Advance Directives Directive None Recorded Payers Encounter Date Sequence Insurance Name Policy Number Policy Moreno Covered Member ID Moreno Member ID Guarantor Name 12/10/2022 1 [facility]) Joana Javier [id number] 1 Joana Javier 03/23/2023 1 [facility] Joana Javier [id number] Joana Javier 04/06/2023 1 [facility] Joana Javier [id number] Joana Javier 05/06/2023 1 [facility] Joana Javier [id number] Joana Javier 07/28/2023 1 [facility]) Joana Javier [id number] Joana Javier Notes Date Note Type [...] swelling and pain. Assessment/Plan: Dr. Aguero note atievangelist has some baseline pain following right total [...] DAPHNEY BALDERAS PA-C [address], [place], [address], [place] [facility] 03/24/2023 08:23:45 3 text/html Prior Visit Dr. Moffettssessment/Plan: 12/10/2022jackie has some baseline pain following right total [...] DAPHNEY BALDERAS PA-C [address], [place], [address], [place] [facility] 04/07/2023 07:33:31 4 text/html Pleasant 62-year-old female degenerative joint disease of the left knee gets good relief with cortisone injections. Is been greater than 3 months since her last cortisone injection. Pain is medial nature gets worse with walking. She is DAPHNEY BALDERAS PA-C [address] [place] [address], [place], [address], [place] [facility] 07/29/2023 08:26:04 OBGyn Episode No OBEpisode recorded.
== END 2024-08-15 11:46 | disposition home or self-care (01) ==
LOC: HO.HOS 11:17
PROVIDERS: PCP Internal Medicine; Visit Provider Orthopaedic Surgery
DX: M17.12 Unilateral primary osteoarthritis, left knee (principal)
CPT/HCPCS: 20610; 99213

== ENCOUNTER → 2024-08-15 11:16 | Outpatient (BNVA) | payer OTHER, SELFPAY | PROVIDERS: PCP Internal Medicine; Visit Provider Orthopaedic Surgery | DX: M17.12 Unilateral primary osteoarthritis, left knee (principal) | CPT/HCPCS: 20610; J1010; J2003 ==

== ENCOUNTER 2024-09-05 11:18 | Outpatient (AMB) | payer OTHER, SELFPAY ==
--- NOTE | 2024-09-05 11:20 | A.OFFVIS_ITS ---
Intake Visit Reasons: 1 year follow up/ PVR Intake Note: Patient presents today for a 1 year follow up/PVR Urology Medications: none Blood Thinner: none PVR: 0ml Family Health Nurse Practitioner Required: No Accompanied by: Self / Same As Patient Allergies No Known Allergies [No Known Allergies*] Allergy (Verified 09/05/24 11:31) HPI Comments Details: Melba is a pleasant 63-year-old male patient of Dr. Valentine. She has a past medical history of GERD, depression, anxiety, asthma, and hypertension. She presents to the office today for her follow-up regarding her urinary stress incontinence. When asked she reports to be doing and feeling well. In discussion with the patient today she reports feeling episodes of urinary stress incontinence she had been experiencing have significantly improved and she relates this to her intentional weight loss. In office urinalysis results reviewed with the patient today. PVR 0 mL. She currently denies any bothersome urinary issues or concerns. She denies urinary urgency, urinary frequency, dysuria, hematuria, fever and or chills. She otherwise offers no other issues or concerns at this time. Plan The patient exhibits improvement in stress urinary incontinence through effective self-management, including weight loss. Objective diagnostic results have confirmed the absence of urinary infections or abnormalities in bladder function. It is advised that the patient continues her current approach, focusing on maintaining weight and lifestyle practices. Routine monitoring of her symptoms is suggested, with the understanding that more intensive treatments may be considered if her symptoms recur or intensify. Patient was informed and verbally consented to the use of an ambient scribe for clinic note documentation during this visit. Discussion Notes During the discussion, we reviewed the patient's improvement in stress urinary incontinence, attributing her success to weight loss which reduced bladder pre ssure. I explained the physiological impact of weight on bladder function, comparing the bladder to a balloon under pressure. After a thorough evaluation, we determined no further immediate interventions were necessary. The patient was advised to maintain her weight and monitor any changes in urinary function. Future medical engagement is recommended only if symptoms suggest a need for it. The patient expressed understanding and agreement with this plan, showing satisfaction with her current state. 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 Gender identity: Female Female Reproductive History Menstrual Age of Menarche: 14 Review of Systems Const Reports no additional complaints Eyes Reports no additional complaints ENT Reports no additional complaints Card Reports as per HPI Resp Reports as per HPI GI Reports as per HPI Reports as per HPI Musc Reports no additional complaints Neuro Reports no additional complaints Psych Reports as per HPI Endo Reports no additional complaints John/Lymph Reports no additional complaints Aller/Immun Reports no additional complaints Physical Exam Const General: cooperative, healthy appearing, comfortable, no acute distress, well developed, alert and awake Orientation/consciousness: patient oriented x3 Limitations: no limitations HEENT Head: Yes normal to inspection, Yes normocephalic and Yes atraumatic Ears: hearing grossly normal bilaterally Eyes General: appearance normal, both eyes and all related structures Neck Neck: Yes normal visual inspection and Yes trachea midline Chest Chest palpation & inspection: normal inspection of the chest Resp Effort & Inspection: normal respiratory effort and able to speak in complete sentences Cardio Rate: regular rate GI Inspection: Yes normal to inspection General: Yes no CVA tenderness Back/Spine/Pelvis Back: no CVA tenderness Skin General skin exam: no rashes or lesions noted Neuro General: patient oriented x3 Extrem General: Yes normal to inspection Psych Appearance: grossly normal and well kempt Mental Status: mental status grossly normal Speech and movement: Normal speech and movement present and Clear speech present Affect: normal affect Attitude: cooperative Thought process: Normal thought process present Thought content: Normal thought content present Insight: Fair insight present (Psych) Judgement: Fair judgement present (Psych) Office Procedures Post Void Residual Post Residual Void Post Void Residual (PVR): 0 [id number]-[id number] Void Residual by ultrasound Results AMB Urinalysis, Automated UA Leukoctes 0 Tr/uL Last Edit by Lilliana White on 09/05/24 11:58 UA Nitrite Negative Last Edit by Lilliana White on 09/05/24 11:58 UA Urobilinogen 0.2 mg/dL Last Edit by Lilliana White on 09/05/24 11:58 UA Protein 0 mg/dL Last Edit by Lilliana White on 09/05/24 11:58 UA pH 6.0 Last Edit by Lilliana White on 09/05/24 11:58 UA Blood 0 Олег/uL Last Edit by Lilliana White on 09/05/24 11:58 UA Specific [place] 1.010 Last Edit by Lilliana White on 09/05/24 11:58 UA Ketone Negative Last Edit by Lilliana White on 09/05/24 11:58 UA Bilirubin 0 mg/dL Last Edit by Lilliana White on 09/05/24 11:58 UA Glucose 0 mg/dL Last Edit by Lilliana White on 09/05/24 11:58 Assessment & Plan Assessment & Plan (1) Stress incontinence in female: Code(s): N39.3 - Stress incontinence (female) (male) Category: Medical Plan In office urinalysis results reviewed with the patient today; as noted above. PVR 0 mL. Patient denies any bothersome urinary issues or concerns. She reports be happy with current voiding parameters. Patient feels symptoms have since resolved with weight loss Follow-up PRN Orders: Orders AMB Urinalysis Automated Today Z13.9 - Encounter for screening, unspecified AMB Post Void Residual by ultrasound Today R39.12 - Poor urinary stream Patient Instructions: The patient had an opportunity to ask questions regarding the treatment plan. All questions were answered. Physical exam, labs, and imaging were discussed and reviewed in detail. As well as risks, benefits, and discussion of treatment choices. No major barriers to understanding were identified. The patient expressed understanding and agreement with the above treatment plan. The patient was made aware they should contact our office by phone for worsening of their current condition, the appearance of new symptoms, or with any questions or concerns. Compliance is encouraged with any medications and follow up testing that is ordered. It is a privilege to be allowed the opportunity to participate in? your urological care.? Again, if you have any questions or concerns If you have any questions or concerns please do not hesitate to contact me. The office is [phone]. This note is constructed using voice recognition software. While every effort has been made to ensure accuracy corporate development intern errors may have been included. Yours sincerely, Annelise Rodriguez, CASE MANAGER SPECIALIST-BC Coding Level of Care Code Est Pt Level 3 (44781) Diagnoses Stress incontinence in female N39.3 CPT Codes Post Residual Void - PVR CPT Code: 94351-Dfcc Void Residual by ultrasound ([id number])
--- OUTSIDE RECORDS SUMMARY | 2024-09-05 13:48 | XMS_ITS | Clinical Summary ---
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
--- OUTSIDE RECORDS SUMMARY | 2024-09-05 13:48 | XMS_ITS | Clinical Summary ---
Author Organization [facility] Address [address] [place], [place] [id number] Care Team Providers Care Senior Care Provider Name Role Phone Sherif Valentine MD Primary Care Provider [phone] Allergies Active Allergy Reactions Criticality Noted Date [...] age to complete this topic Care Teams Senior Care Provider Relationship Specialty Start Date End Date Sherif Valentine MD [address] [place] [address] [place] [id number] PCP - General Media Theorist And Author Of 01/16/21
== END 2024-09-05 11:53 | disposition home or self-care (01) ==
LOC: HO.HUSH 11:18
PROVIDERS: PCP Internal Medicine; Visit Provider Nurse Practitioner Family
DX: Z13.9 Encounter for screening, unspecified (principal); N39.3 Stress incontinence (female) (male)
CPT/HCPCS: 99213

== ENCOUNTER → 2024-09-05 11:18 | Outpatient (BNVA) | payer OTHER, SELFPAY | PROVIDERS: PCP Internal Medicine; Visit Provider Nurse Practitioner Family | DX: N39.3 Stress incontinence (female) (male) (principal) | CPT/HCPCS: 51798; 81003 ==

== ENCOUNTER 2024-09-17 11:04 | Outpatient (REF) | payer OTHER, SELFPAY ==
--- OUTSIDE RECORDS SUMMARY | 2024-09-17 13:07 | XMS_ITS | Data Portability ---
Author Organization [place] [facility] Brian Perez [place] [place] Address [address] [place] [address] Care Team Providers Care Stripper Color Name Role Phone JUAN LUIS ZUNIGA Primary [...] more view 2022 023 [email or web address] [facility], [address], [place], [address], 3 12:06:13 XR, knee, 4 or more view 2022 023 [email or web address] [facility], [address], [place], [address], 3 12:06:13 Medication Orders Kenalog 40 mg/mL suspension for injection 2023 024 [email or web address] [id number], [address] [place], [address], 4 08:25:40 lidocaine (PF) 10 mg/mL (1 %) injection solution 2023 024 [email or web address] Not available 4 08:58:03 Kenalog 40 mg/mL suspension for injection 2022 023 [email or web address] [id number], [address] [place], [address], 3 14:42:37 lidocaine (PF) 10 mg/mL (1 %) injection solution 2022 023 [email or web address] [id number], [address] [place], [address], 3 14:42:37 Patient TargetsNo targets recorded. 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 5511033726376 9100 Active 2022 DAPHNEY BALDERAS PA-C [address], [place], [address], [place] [facility] 3 09:53:04 Osteoarthri tis of right hip joint 0347297272091 07 Active 2022 DAPHNEY BALDERAS PA-C [address], [place], [address], [place] [facility] 3 10:05:26 Pain of left knee joint 5045577231077 07 Active 2023 DAPHNEY BALDERAS PA-C [address], [place], [address], [place] [facility] 4 08:18:09 Chronic low back pain 951543590 Active 2022 DAPHNEY BALDERAS PA-C [address], [place], [address], [place] [facility] 3 16:33:54 Problem Notes None recorded. Procedures Surgical History Date Name Laterality Status Provider Name and Address Organization Details Recorded Time 07/28/2023 Knee Joint/Burs a Asp & Inj completed DAPHNEY BALDERAS PA-C [address], [place], [address], [place] [facility] 07/29/2023 08:18:06 04/06/2023 Knee Joint/Burs a Asp & Inj completed DAPHNEY BALDERAS PA-C [address] [facility] [address], [place], [address], [place] [facility] 04/06/2023 16:15:13 03/23/2023 Knee Joint/Burs a Asp & Inj completed DAPHNEY BALDERAS PA-C [address] [facility],[address], [place], [address], [place] [facility] 03/24/2023 08:20:47 Imaging Results None recorded. [...] Updated DateTime 05/06/2023 167.64 cm 34.4 kg/m2 18688.17 g Monster Griffiths [facility] 05/06/2023 10:43:42 Date Recorded Body weight Body mass index (BMI) Body height Provider Name and Address Organization Details Last Updated DateTime 12/10/2022 24730.17 g 34.4 kg/m2 167.64 cm Stephanie Hoang [facility] 12/10/2022 10:13:24 Date Recorded Body height Provider Name an d Address Organization Details Last Updated DateTime 03/23/2023 167.64 cm Jennifer Green [facility] 03/23/2023 14:07:34 Social History Question Answer Notes LastModified by Organizat ion Details LastModified Time Tobacco Smoking Status Never Smoker Monster Griffiths [facility], [facility] 09/20/2022 09:15:13 What Is Your Level Of Alcohol Consumption? None [email or web address] Information not available 09/20/2022 Do You Use Any Illicit Or Recreational Drugs? No [email or web address] Information not available 09/20/2022 Do You Or Have You Ever Used Any Other Forms Of Tobacco Or Nicotine? No [email or web address] Information not available 09/20/2022 Sex: Unknown Functional Status None recorded. Mental Status None recorded. Family History Relationship Description Onset Age of this Age Resolved Age Notes LastModified by Organization Details LastModified Time Mother Hypertensive disorder [email or web address] Not available 09:14:55 Medical History Condition Response Asthma Y Hypertension Y Gynecological HistoryNo gynecological history recorded. Obstetrics History GPAL:G 0 P 0 0 0 0 Past Encounters Encounter ID Performer Location Encounter Start Date Encounter Closed Date Diagnosis/Indication Diagnosis SNOMED-CT Code Diagnosis ICD10 Code Diagnosis Note [id number] MD ASHA Puentesshayy [address] [facility] [address] [place] [address] 09/20/2022 08:51:15 09/20/2022 10:05:07 History of right total knee replacement 0302836693 442402 Z96.651 Pain in ri ght hip joint 1645601100 09414 M25.551 Chronic pa in following right total knee arthroplasty 8549856137 2430601 T84.84XD Osteoarthr itis of right hip joint 4256882528 36494 M16.11 [id number] MD ASHA Puentes [facility] 299 [facility] [address] [place] [address] 10/06/2022 15:37:18 10/06/2022 16:02:05 Chronic low back pain 132768688 M54.50 [id number] MD ASHA Puentes [facility] [address] [address] 12/10/2022 09:54:03 12/10/2022 10:37:11 Osteoarthritis of left knee joint 6973990077 98811 M17.12 Osteoarthr itis of right knee joint 9515084674 30321 M17.11 [id number] MD ASHA Puentes [facility] [address] [address] 03/23/2023 13:35:00 03/23/2023 14:49:57 History of right total knee replacement 8745911180 748811 Z96.651 Pain of le ft knee joint 1888940739 28266 M25.562 Chronic pa in following right total knee arthroplasty 5126964399 8800003 T84.84XD [id number] MD ASHA Puentes [facility] [address] [address] 04/06/2023 15:27:54 04/06/2023 15:56:31 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 0272345779 9134189 T84.84XD Effusion of joint 294722 008 M25.40 M25.461 Synovasure sent off [id number] MD ASHA Puentes [facility] 299 [facility] [address] [place] [address] 05/06/2023 10:16:44 05/06/2023 11:14:48 Pain of right knee joint 8119573578 35028 M25.561 Chronic pa in following right total knee arthroplasty 3713719199 0199851 T84.84XD [id number] MD ASHA Puentesshayy [place] [address] [facility] [address] [place] [address] 07/28/2023 11:02:47 07/28/2023 11:31:59 Pain of left knee joint 3257788721 34600 M25.562 Health Concerns Section Related Observation LastModified by Organization Detai ls LastModified Time None Recorded Concern Status LastModified by Organization Details LastModified Time None Recorded Advance Directives Directive None Recorded Payers Encounter Date Sequence Insurance Name Policy Number Policy Moreno Covered Member ID Moreno Member ID Guarantor Name 12/10/2022 1 [facility] Joana Javier [id number] 1 Joana Javier 03/23/2023 1 [facility] Joana Javier [id number] Joana Javier 04/06/2023 1 [facility] Joana Javier [id number] Joana Javier 05/06/2023 1 [facility] Joana Javier [id number] 1 Joana Javier 07/28/2023 1 [facility] Joana Javier [id number] Joana Javier Notes Date Note Type [...] DAPHNEY BALDERAS PA-C [address], [place], [address], [place] [facility] 03/24/2023 08:23:45 3 text/html Prior Visit [...] DAPHNEY BALDERAS PA-C [address], [place], [address], [place] [facility] 04/07/2023 07:33:31 4 text/html Pleasant 62-year-old female degenerative joint disease of the left knee gets good relief with cortisone injections. Is been greater than 3 months since her last cortisone injection. Pain is medial nature gets worse with walking. She is DAPHNEY BALDERAS PA-C [address] [place] [address], [place], [address], [place] [facility] 07/29/2023 08:26:04 OBGyn Episode No OBEpisode recorded.
--- OUTSIDE RECORDS SUMMARY | 2024-09-17 13:08 | XMS_ITS | Clinical Summary ---
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
--- OUTSIDE RECORDS SUMMARY | 2024-09-17 13:08 | XMS_ITS | Clinical Summary ---
Author Organization [facility] Address [address] [place], [place] [id number] Care Team Providers Care Airport Ramp Supervisor Name Role Phone Sherif Valentine MD Primary Care Provider [phone] Allergies Active Allergy Reactions Criticality Noted Date [...] age to complete this topic Care Teams Airport Ramp Supervisor Relationship Specialty Start Date End Date Sherif Valentine MD [address] [place] [address] [place] [address] PCP - General Landscape Foreman 01/16/21
== END 2024-09-17 11:05 | disposition home or self-care (01) ==
LOC: HO.MAMMO 11:04
PROVIDERS: Referring Provider Internal Medicine; Visit Provider Internal Medicine
DX: Z12.31 Encounter for screening mammogram for malignant neoplasm of breast (principal)
CPT/HCPCS: 77063; 77067

== ENCOUNTER → 2024-09-17 11:15 | Outpatient (BNV) | payer OTHER, SELFPAY | PROVIDERS: Referring Provider Internal Medicine; Visit Provider Internal Medicine | DX: Z12.31 Encounter for screening mammogram for malignant neoplasm of breast (principal) | CPT/HCPCS: 77063; 77067 ==

== ENCOUNTER 2024-10-05 13:51 | Outpatient (AMB) | payer OTHER, SELFPAY ==
[2024-10-05 13:57] VITALS: BP 132/80; PULSE 76; TEMP 36.4; O2SAT 99; BMI 34.0
--- NOTE | 2024-10-05 13:57 | MHC.PC.OV ---
Vital Signs 10/05/24 13:57 Height 5 ft 4 in Weight 89.811 kg BMI 34.0 BP 132/80 Blood Pressure Location Lt brachial Position Sitting Pulse 76 Pulse Source Pulse Oximeter Temp 97.5 F Temp Source Axillary Pulse Oximetry (%) 99 Oxygen Delivery Method Room Air Intake Visit Reasons: Routine - see comments Chronograph Operator Required: No Accompanied by: Self / Same As Patient Allergies No Known Allergies [No Known Allergies*] Allergy (Verified 10/05/24 14:00) Tobacco use date assessed: 10/05/24 Dental Screening Dental Screen Date: 10/05/24 Did you have a dental visit in the last 12 months?: Yes Did you have a dental problem in the last 6 months where you did not have access to dental care?: No HPI HPI Comments History of Present Illness Details History of Present Illness The patient is a 63-year-old female presenting with bilateral shoulder and arm discomfort accompanied by a pins and needles sensation. These symptoms began about three weeks prior to the visit without any identifiable initiating event and were associated with severe pain initially localized in the shoulder muscles. The pain intensity has since decreased but worsens when the patient assumes a supine position. The tingling sensation, though intermittent, has progressed in intensity and is sometimes noted as affecting the hand and traveling downward. The patient denies any neck pain or range of motion limitations, and she finds some relief with Meloxicam. Her medical history includes anxiety, for which she uses lorazepam as needed, knee pain managed with gabapentin, and depression managed with Wellbutrin. Additionally, she has asthma, requiring daily albuterol use, which is possibly exacerbated by allergies. Review of Systems - Musculoskeletal: Reports severe shoulder pain initially, now improved. - Neurological: Reports intermittent pins and needles sensation in the arm, worse when lying down. - Respiratory: Reports increased use of albuterol, correlates to allergy season. - Psychiatric: Reports occasional use of lorazepam for anxiety. - General: Reports occasional discomfort relief with Meloxicam. Vital Signs Health Maintenance - Recent mammogram completed last month. - Colonoscopy is due and referral to gastroenterology for colonoscopy is planned. - Discussed lorazepam, bupropion, and gabapentin in terms of use and need for refills. - Advised on the excessive use of albuterol and discussed alternatives, including Singulair to manage asthma symptomatology. Physical Exam Constitutional: Awake and alert, no apparent distress Heart: RRR, S1S2, no murmurs, no edema Lungs: CTA bilaterally, no wheezing Extremities: No calf tenderness, reports severe pain in shoulder and arm, pins and needles sensation in hand Skin: Warm and dry Neuro: Alert and oriented x 3, equal strength on both sides, reports tingling sensation in arm Assessment and Plan 1. Trapezius spasm with radiculopathy Improving. Prescribed Robaxin to manage discomfort, continue Meloxicam. Monitor arm and shoulder discomfort symptoms over the next couple of weeks, with imaging to be considered if symptoms persist. 2. Chronic knee pain Peripheral neuropathy symptoms managed with Gabapentin, to be taken primarily at night. Educated the patient on medication adherence and symptom monitoring. 3. Anxiety Refilled lorazepam for as-needed usage, the patient instructed on addiction potential and prudent use. Mass pat reviewed 4. Asthma Recommend introducing Singulair at night to help manage asthma triggered by allergies rather than increasing reliance on albuterol. Albuterol as needed 6. Depression Continue Wellbutrin with a focus on lifestyle management including sunlight exposure and physical exercise for an overall improved sense of well-being. [facility] Medical History (Updated 10/05/24 @ 17:33 by RENU Ladd) Stress incontinence GERD (gastroesophageal reflux disease) Depression Anxiety Asthma HTN (hypertension) Surgical History History of colonoscopy (~07/21/12) Total knee replacement status History of suburethral sling procedure History of appendectomy History of endometrial ablation Family History (Updated 10/05/24 @ 14:34 by Debbie Gonzalez MA) Mother No problems noted. Father No problems noted. 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 Gender identity: Female Cognitive needs: No Hearing needs: No Vision needs: Yes (rx glasses) Female Reproductive History Menstrual Age of Menarche: 14 Questionnaire PHQ-9 Over the last 2 weeks, how often have you been bothered by any of the following problems? 1. Little interest or pleasure in doing things: not at all 2. Feeling down, depressed, or hopeless: several days 3. Trouble falling or staying asleep, or sleeping too much: not at all 4. Feeling tired or having little energy: not at all 5. Poor appetite or overeating: not at all 6. Feeling bad about yourself - or that you are a failure or have let yourself or your family down: not at all 7. Trouble concentrating on things, such as reading the newspaper or watching television: not at all 8. Moving or speaking so slowly that other people could have noticed. Or the opposite - being so fidgety or restless that you have been moving around a lot more than usual: not at all 9. Thoughts that you would be better off or of hurting yourself in some way: not at all Total score: 1 Source: Developed by Drs. Toney Simental, Marianela Madden, Britton Arambula and colleagues, with an educational princess from [employer]. Thrive Questionnaire Date Thrive assessed: 10/05/24 I am a: Patient Within the past 12 months, did the food you bought not last and you didn't have the money to get more?: Never true Within the past 12 months, did you worry whether your food would run out before you got money to buy more?: Never true Do you have trouble paying for medicines?: No Do you have trouble getting transportation to medical appointments?: No Do you have trouble paying your heating and electricity bill?: No Do you have trouble taking care of your child, family member or friend?: No Do you have trouble with day-to-day activities such as bathing, preparing meals, shopping, managing finances, etc.?: No Are you currently unemployed and looking for a job?: No Are you interested in more education?: No THRIVE Score: 0 AUDIT C Alcohol Use Questionnaire (AUDIT-C) 1. How often do you have a drink containing alcohol?: Never 3. How often do you have six or more drinks on one occasion?: Never Total Score: 0 JOVAN-7 AMB Questionnaire JOVAN-7 Date JOVAN - 7 assessed: 10/05/24 Feeling nervous, anxious, or on edge: 0 = Not at all Not being able to stop or control worryin = Not at all Worrying too much about different things: 0 = Not at all Trouble relaxin = Not at all Being so restless that it is hard to sit still: 0 = Not at all Becoming easily annoyed or irritable: 0 = Not at all Feeling afraid as if something awful might happen: 0 = Not at all Total JOVAN-7 score (0-4 normal; 5-9 mild; 10-14 moderate; 15-21 severe): 0 Source: Developed by Drs. Toney Simental, Marianela Madden, Britton Arambula and colleagues, with an educational princess from [employer]. Physical exam (Primary Care) Vital Signs: Last Vital Signs Temp 97.5 F 10/05/24 13:57 Pulse 76 10/05/24 13:57 BP 132/80 10/05/24 13:57 Pulse Ox 99 10/05/24 13:57 Oxygen Delivery Method Room Air 10/05/24 13:57 BMI result Body Mass Index 34.0 Tobacco/Smoking Status: Tobacco use Status Tobacco use date assessed 10/05/24 10/05/24 14:02 Patient Tobacco Use Status Never used Tobacco 10/05/24 14:02 e-Cigarette/Vaping Use Never Used 10/05/24 14:02 PHQ-9: PHQ-9 Score PHQ-9: Total score 1 10/05/24 14:50 Thrive Assessment: Date of Thrive Assessment Date Thrive assessed 10/05/24 10/05/24 14:02 Coding Level of Care Code New Pt Level 4 (06004) Complex EM visit Add On G2211 Diagnoses Radiculopathy affecting upper extremity M54.10 HTN (hypertension) I10 Depression F32.9 Asthma J45.909 Assessment & Plan Assessment & Plan (1) Radiculopathy affecting upper extremity: Code(s): M54.10 - Radiculopathy, site unspecified Category: Medical Plan: Appears to be related to a trapezius strain/spasm and is improving. Recommend continuing meloxicam and will add Robaxin as needed. Should symptoms persist after 2 weeks, we will consider further imaging (2) HTN (hypertension): Code(s): I10 - Essential (primary) hypertension Category: Medical Plan: Controlled. Continue irbesartan and low-sodium diet. BNP ordered to evaluate renal function electrolyte levels (3) Depression: Code(s): F32.9 - Major depressive disorder, single episode, unspecified Category: Medical Plan: With anxiety. Stable. Refill provided for lorazepam as needed. Mass pat reviewed. Continue bupropion 300 mg XL. Recommend increased exercise and sunlight exposure (4) Asthma: Code(s): J45.909 - Unspecified asthma, uncomplicated Category: Medical Plan: Uncontrolled Add Singulair nightly. Continue albuterol use only as needed for shortness of breath and wheezing. Plan Follow-up in 6 months with labs completed prior to visit Orders: Orders Basic Metabolic Panel Today E66.9 - Obesity, unspecified, I10 - Essential (primary) hypertension, Z13.1 - Encounter for screening for diabetes mellitus, Z13.220 - Encounter for screening for lipoid disorders Hemoglobin A1c Today E66.9 - Obesity, unspecified, I10 - Essential (primary) hypertension, Z13.1 - Encounter for screening for diabetes mellitus, Z13.220 - Encounter for screening for lipoid disorders Complete Blood Count Auto Diff Today E66.9 - Obesity, unspecified, I10 - Essential (primary) hypertension, Z13.1 - Encounter for screening for diabetes mellitus, Z13.220 - Encounter for screening for lipoid disorders Lipid Panel Today E66.9 - Obesity, unspecified, I10 - Essential (primary) hypertension, Z13.1 - Encounter for screening for diabetes mellitus, Z13.220 - Encounter for screening for lipoid disorders TSH reflex Free T4 Today E66.9 - Obesity, unspecified, I10 - Essential (primary) hypertension, Z13.1 - Encounter for screening for diabetes mellitus, Z13.220 - Encounter for screening for lipoid disorders Medications: New montelukast (Singulair) 10 mg PO BEDTIME 90 tabs 1RF methocarbamol 750 mg PO Q8H PRN 60 tabs 0RF muscle spasm/tingling
--- OUTSIDE RECORDS SUMMARY | 2024-10-05 14:11 | XMS_ITS | Data Portability ---
Author Organization [place] [facility] Brian Perez [place] Address [address] [place] [address] Care Team Providers Care Crystalizer Operator Name Role Phone JUAN LUIS ZUNIGA Primary Care Provider [phone] Assessment Encounter Date Assessment Date Assessment LastModified by Organization Details LastModified Time 12/10/2022 12/10/2022 HPI : Patient is here for primary complaint of right knee pain. She underwent a right total knee replacement with Dr. Meldey in April 2021. She states she always [...] more view 2022 023 [email or web address] [facility], [address], [place], [address], 3 12:06:13 XR, knee, 4 or more view 2022 023 [email or web address] [facility], [address], [place], [address], 3 12:06:13 Medication Orders Kenalog 40 mg/mL suspension for injection 2023 024 [email or web address] [id number], [address] [place], [address], 4 08:25:40 lidocaine (PF) 10 mg/mL (1 %) injection solution 2023 024 [email or web address] Not available 4 08:58:03 Kenalog 40 mg/mL suspension for injection 2022 023 [email or web address] [id number], [address] [place], [address], 3 14:42:37 lidocaine (PF) 10 mg/mL (1 %) injection solution 2022 023 [email or web address] [id number], [address] [place], [address], 3 14:42:37 Patient TargetsNo targets recorded. Patient Instructions Encounter Date Encounter Id Patient Instructions Last Modified By Organization Details Last Modified Time 03/23/2023 [id number] Left knee x-ray moderate degenerative change overall [...] Organization Details Recorded Time Effusion of joint 017395305 Active 2022 DAPHNEY BALDERAS PA-C [address], [place], [address], [place] [facility] 3 16:15:39 Pain of right knee joint 2112361503796 00 Active 2022 Marino Aguero MD [address], [place], [address], [place] [facility] 3 11:09:13 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 8405916510191 9100 Active 2022 DAPHNEY BALDERAS PA-C [address], [place], [address], [place] [facility] 3 09:53:04 Osteoarthri tis of right hip joint 3827565365716 07 Active 2022 DAPHNEY BALDERAS PA-C [address], [place], [address], [place] [facility] 3 10:05:26 Pain of left knee joint 4654052289449 07 Active 2023 DAPHNEY BALDERAS PA-C [address], [place], [address], [place] [facility] 4 08:18:09 Chronic low back pain 407355651 Active 2022 DAPHNEY BALDERAS PA-C [address], [place], [address], [place] [facility] 3 16:33:54 Problem Notes None recorded. Procedures Surgical History Date Name Laterality Status Provider Name and Address Organization Details Recorded Time 07/28/2023 Knee Joint/Burs a Asp & Inj completed DAPHNEY BALDERAS PA-C [address], [place], [address], [place] [facility] 07/29/2023 08:18:06 04/06/2023 Knee Joint/Burs a Asp & Inj completed DAPHNEY BALDERAS PA-C [address] [facility] [address], [place], [address], [place] [facility] 04/06/2023 16:15:13 03/23/2023 Knee Joint/Burs a Asp & Inj completed DAPHNEY BALDERAS PA-C [address] [facility],[address], [place], [address], [place] [facility] 03/24/2023 08:20:47 Imaging Results None recorded. [...] Updated DateTime 05/06/2023 167.64 cm 34.4 kg/m2 99738.17 g Monster Griffiths [facility] 05/06/2023 10:43:42 Date Recorded Body weight Body mass index (BMI) Body height Provider Name and Address Organization Details Last Updated DateTime 12/10/2022 66598.17 g 34.4 kg/m2 167.64 cm Stephanie Hoang [facility] 12/10/2022 10:13:24 Date Recorded Body height Provider Name an d Address Organization Details Last Updated DateTime 03/23/2023 167.64 cm Jennifer Green [facility] 03/23/2023 14:07:34 Social History Question Answer Notes LastModified by Organizat ion Details LastModified Time Tobacco Smoking Status Never Smoker Monster Griffiths [facility], [facility] 09/20/2022 09:15:13 What Is Your Level Of Alcohol Consumption? None [email or web address] Information not available 09/20/2022 Do You Use Any Illicit Or Recreational Drugs? No [email or web address] Information not available 09/20/2022 Do You Or Have You Ever Used Any Other Forms Of Tobacco Or Nicotine? No [email or web address] Information not available 09/20/2022 Sex: Unknown Functional Status None recorded. Mental Status None recorded. Family History Relationship Description Onset Age of this Age Resolved Age Notes LastModified by Organization Details LastModified Time Mother Hypertensive disorder [email or web address] Not available 09:14:55 Medical History Condition Response Hypertension Y Asthma Y Gynecological HistoryNo gynecological history recorded. Obstetrics History GPAL:G 0 P 0 0 0 0 Past Encounters Encounter ID Performer Location Encounter Start Date Encounter Closed Date Diagnosis/Indication Diagnosis SNOMED-CT Code Diagnosis ICD10 Code Diagnosis Note [id number] MALATHI REEVES [facility] [address] [facility] [address] [place] [address] 09/20/2022 08:51:15 09/20/2022 10:05:07 History of right total knee replacement 8559290325 621344 Z96.651 Pain of ri ght hip joint 2323478219 08380 M25.551 Chronic pa in following right total knee arthroplasty 2186236547 9123960 T84.84XD Osteoarthr itis of right hip joint 0087074289 10284 M16.11 [id number] [facility] [address] [address] 10/06/2022 15:37:18 10/06/2022 16:02:05 Chronic low back pain 060254393 M54.50 [id number] MD ASHA Puentes [facility] [address] [address] 12/10/2022 09:54:03 12/10/2022 10:37:11 Osteoarthritis of left knee joint 2769615061 00899 M17.12 Osteoarthr itis of right knee joint 7669741337 46994 M17.11 [id number] 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 6850204799 2372573 T84.84XD Effusion of joint 450264 008 M25.40 M25.461 Synovasure sent off [id number] MD ASHA Puentes [facility] [address] [facility] [address] [facility] [place] [place] [address] 05/06/2023 10:16:44 05/06/2023 11:14:48 Pain of right knee joint 4632453627 58550 M25.561 Chronic pa in following right total knee arthroplasty 5249943972 3550200 T84.84XD [id number] MALATHI REEVES [place] [address] [facility] [address] [facility] [place] [place] [address] 07/28/2023 11:02:47 07/28/2023 11:31:59 Pain of left knee joint 6087635233 60046 M25.562 Health Concerns Section Related Observation LastModified by Organization Detai ls LastModified Time None Recorded Concern Status LastModified by Organization Details LastModified Time None Recorded Advance Directives Directive None Recorded Payers Encounter Date Sequence Insurance Name Policy Number Policy Moreno Covered Member ID Moreno Member ID Guarantor Name 12/10/2022 1 [facility] Joana Javier [id number] 1 Joana Javier 03/23/2023 1 [facility] Joana Javier [id number] Joana Javier 04/06/2023 1 [facility] Joana Javier [id number] 1 Joana Javier 05/06/2023 1 [facility]) Joana Javier [id number] 1 Joana Javier 07/28/2023 1 [facility]) Joana Javier [id number] Joana Javier Notes Date Note Type [...] swelling and pain. Assessment/Plan: Dr. Aguero note jackie has some baseline pain following right total [...] knee, viscosupplement (PROC) DAPHNEY BALDERAS PA-C [address] [facility],[address] [address], [place], [address], [place] [facility] 03/24/2023 08:23:45 3 text/html Prior Visit [...] DAPHNEY BALDERAS PA-C [address], [place], [address], [place] [facility] 04/07/2023 07:33:31 4 text/html Pleasant 62-year-old female degenerative joint disease of the left knee gets good relief with cortisone injections. Is been greater than 3 months since her last cortisone injection. Pain is medial nature gets worse with walking. She is DAPHNEY BALDERAS PA-C [address] [place] [address], [place], [address], [place] [facility] 07/29/2023 08:26:04 OBGyn Episode No OBEpisode recorded.
--- OUTSIDE RECORDS SUMMARY | 2024-10-05 14:11 | XMS_ITS | Clinical Summary ---
Author Organization [facility] Address [address] [place], [place] [id number] Care Team Providers Care Director Of Community Education Name Role Phone Sherif Valentine MD Primary Care Provider [phone] Allergies Active Allergy Reactions Criticality Noted Date [...] age to complete this topic Care Teams Director Of Community Education Relationship Specialty Start Date End Date Sherif Valentine MD [address] [place] [address] [place] [address] PCP - General Cattle Sticker 01/16/21
--- OUTSIDE RECORDS SUMMARY | 2024-10-05 14:11 | XMS_ITS | Clinical Summary ---
Author Organization [facility] it Address [address] [place] [address] Care Team Providers Care Shadowgraph Scale Operator Name Role Phone Sherif Valentine MD Primary Care Provider [phone] Medical History Medical History Date Comments Asthma [...] Documents on File Type Date Recorded Patient Otolaryngologist Expl anation Health Care Decision (hx) 04/28/2021 [...] (hx) 04/17/2021 AD ARMENDARIZ DIRECTIVE Care Teams Shadowgraph Scale Operator Relationship Specialty Start Date End Date Sherif Valentine MD [address] [place] [address] Dr Rizwana MA PCP - General Abe Teacher 01/16/21
== END 2024-10-05 14:52 | disposition home or self-care (01) ==
LOC: HO.HMCHD 13:52
PROVIDERS: PCP Internal Medicine; Visit Provider Internal Medicine
DX: M54.10 Radiculopathy, site unspecified (principal); I10 Essential (primary) hypertension; F32.9 Major depressive disorder, single episode, unspecified; J45.909 Unspecified asthma, uncomplicated

== ENCOUNTER 2024-11-15 11:22 | Outpatient (AMB) | payer OTHER, SELFPAY ==
--- NOTE | 2024-11-15 11:26 | A.OFFVIS_ITS ---
Vital Signs 11/15/24 11:28 Height 5 ft 4 in Weight 199 lb BMI 34.2 Intake Visit Reasons: INJ- LT knee inj- last inj 08/15/24 Intake Note: Joana is a 63 year old female who presents with complaints of left knee pain. She describes her pain as sharp in nature. She has tried Tylenol and anti- inflammatory medicines which gave her mild relief. She has had cortisone inje ctions in the past which gave her fairly good relief. She wishes to hold off on surgery if at all possible. Allergies No Known Allergies [No Known Allergies*] Allergy (Verified 11/15/24 11:29) Medication List - Last Reconciled 11/15/24 by Nicolas Medley MD albuterol sulfate 90 mcg/actuation 2 puffs inhalation Q4H PRN bupropion HCl XL 300 mg PO DAILY gabapentin 300 mg PO BID irbesartan 37.5 mg PO DAILY lorazepam 0.5 mg PO BEDTIME PRN meloxicam 15 mg PO DAILY PRN methocarbamol 750 mg PO Q8H PRN montelukast (Singulair) 10 mg PO BEDTIME omeprazole 20 mg PO DAILY PFSH Medical History (Updated 10/05/24 @ 17:33 by RENU Ladd) Stress incontinence GERD (gastroesophageal reflux disease) Depression Anxiety Asthma HTN (hypertension) Surgical History History of colonoscopy (~07/21/12) Total knee replacement status History of suburethral sling procedure History of appendectomy History of endometrial ablation Family History (Updated 10/05/24 @ 14:34 by Debbie Gonzalez MA) Mother No problems noted. Father No problems noted. 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 Gender identity: Female Cognitive needs: No Hearing needs: No Vision needs: Yes (rx glasses) Female Reproductive History Menstrual Age of Menarche: 14 Physical Exam Vital Signs: BMI result Body Mass Index 34.2 Const Other: Well-nourished well-developed very friendly female awake alert and oriented x3 in no acute distress Extrem Other: Bilateral lower extremity examination shows good capillary refill, no skin lesions noted, normal sensation light touch Left knee examination shows a minimal effusion, palpable crepitus with range of motion, pain with range of motion, no instability Office Procedures AMB Joint Injection/Aspiration Joint Injection/Aspiration Primary Site: left knee Prep: site was prepped using aseptic technique Injected: 40 mg of, DepoMedrol and 1% plain lidocaine Procedure: The patient tolerated the procedure well Coding - Large joint Procedure code (CPT) selection complete Results Reviewed Results Reviewed: X-rays of the patient's left knee taken previously show joint space narrowing, subchondral sclerosis, no acute bony abnormalities Assessment & Plan Assessment & Plan (1) Arthritis of left knee: Code(s): M17.12 - Unilateral primary osteoarthritis, left knee Category: Medical Plan Ms. Javier presents with left knee pain due to degenerative joint disease. The risks and benefits of a left knee cortisone injection were discussed at length with the patient. The patient wished to proceed. She tolerated the injection well. She will continue with her home exercise program. She will contact me prior to her follow-up appointment in 3 months should any questions or concerns arise. Feel free to call me at any time should questions regarding her orthopedic management arise. I spent 22 minutes in reviewing the patient's records and imaging studies, seeing the patient and documenting in the medical record. Orders: Orders AMB Joint Injection/Aspiration Today M17.12 - Unilateral primary osteoarthritis, left knee Medications: Changed From gabapentin Take 1 capsule at night for 1 week; if well tolerated, increase to twice daily 300 mg PO BID 60 caps 1RF To gabapentin Take 1 capsule at night for 1 week; if well tolerated, increase to twice daily 300 mg PO BEDTIME 30 caps 3RF Coding Level of Care Code Est Pt Level 3 (94415) Complex EM visit Add On G2211 Diagnoses Arthritis of left knee M17.12 CPT Codes Coding - Large joint: 91080 - Large joint ([id number])
[2024-11-15 11:28] VITALS: BMI 34.2
--- OUTSIDE RECORDS SUMMARY | 2024-11-15 13:28 | XMS_ITS | Data Portability ---
Author Organization [facility] Brian Perez AONE [place] Address [address] [place] [address] Care Team Providers Care Credit Clerk Name Role Phone JUAN LUIS ZUNIGA Primary [...] findings at length with the patient today. We discussed the nature and etiology of this problem along with current treatment options. We discussed the expected course and outcomes and what to expect. We also discussed risks and benefits. All of their questions were answered today, and there was exhibited understanding and comprehension of all that was discussed. Time Spent: 10 minutes were spent reviewing previous imaging and charting. 10 minutes were spent obtaining patient history. 5 minutes were spent on physical exam. 5minutes were spent explaining diagnosis and assessment. Today's [...] findings at length with the patient today. We discussed the nature and etiology of this problem along with current treatment options. We discussed the expected course and outcomes and what to expect. We also discussed risks and benefits. All of their questions were answered today, and there was exhibited understanding and comprehension of all that was discussed. Time Spent: 10 minutes were spent reviewing previous imaging and charting. 10 minutes were spent obtaining patient history. 5 minutes were spent on physical exam. 5minutes were spent explaining diagnosis and assessment. Today's [...] findings at length with the patient today. We discussed the nature and etiology of this problem along with current treatment options. We discussed the expected course and outcomes and what to expect. We also discussed risks and benefits. All of their questions were answered today, and there was exhibited understanding and comprehension of all that was discussed. Time Spent: 10 minutes were spent reviewing previous imaging and charting. 10 minutes were spent obtaining patient history. 5 minutes were spent on physical exam. 5minutes were spent explaining diagnosis and assessment. Today's [...] more view 2022 023 [email or web address] [facility], [address], [place], [address], 3 12:06:13 XR, knee, 4 or more view 2022 023 [email or web address] [facility], [address], [place], [address], 3 12:06:13 Medication Orders Kenalog 40 mg/mL suspension for injection 2023 024 [email or web address] [id number], [address] [place], [address], 4 08:25:40 lidocaine (PF) 10 mg/mL (1 %) injection solution 2023 024 [email or web address] Not available 4 08:58:03 Kenalog 40 mg/mL suspension for injection 2022 023 [email or web address] [id number], [address] [place], [address], 3 14:42:37 lidocaine (PF) 10 mg/mL (1 %) injection solution 2022 023 [email or web address] [id number], [address] [place], [address], 3 14:42:37 Patient TargetsNo targets recorded. 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 7274017826859 9100 Active 2022 DAPHNEY BALDERAS PA-C [address], [place], [address], [place] [facility] 3 09:53:04 Osteoarthri tis of right hip joint 9655375380867 07 Active 2022 DAPHNEY BALDERAS PA-C [address], [place], [address], [place] [facility] 3 10:05:26 Pain of left knee joint 8576011393660 07 Active 2023 DAPHNEY BALDERAS PA-C [address], [place], [address], [place] [facility] 4 08:18:09 Chronic low back pain 518745472 Active 2022 DAPHNEY BALDERAS PA-C [address], [place], [address], [place] [facility] 3 16:33:54 Problem Notes None recorded. Procedures Surgical History Date Name Laterality Status Provider Name and Address Organization Details Recorded Time 07/28/2023 Knee Joint/Burs a Asp & Inj completed DAPHNEY BALDERAS PA-C [address], [place], [address], [place] [facility] 07/29/2023 08:18:06 04/06/2023 Knee Joint/Burs a Asp & Inj completed DAPHNEY BALDERAS PA-C [address], [place], [address], [place] [facility] 04/06/2023 16:15:13 03/23/2023 Knee Joint/Burs a Asp & Inj completed DAPHNEY BALDERAS PA-C [address] [facility] [address], [place], [address], [place] [facility] 03/24/2023 08:20:47 Imaging Results None recorded. [...] Available Not Available Vitals Date Recorded Body weight Body mass index (BMI) Body height Provider Name and Address Organization Details Last Updated DateTime 12/10/2022 80313.17 g 34.4 kg/m2 167.[address] [facility] 12/10/2022 10:13:24 Date Recorded Body height Provider Name an d Address Organization Details Last Updated DateTime 03/23/2023 167[address] [facility] 03/23/2023 14:07:34 Date Recorded Body height Body mass index (BMI) Body weight Provider Name and Address Organization Details Last Updated DateTime 05/06/2023 167.64 cm 34.4 kg/m2 60537.[address] [place] [facility] 05/06/2023 10:43:42 Social History None recorded. Functional Status Question Answer Note LastModified by Organizat ion Details LastModified Time Do you use any illicit or recreational drugs? No [email or web address] Information not available 09/20/2022 Do you or have you ever used any other forms of tobacco or nicotine? No [email or web address] Information not available 09/20/2022 What is your level of alcohol consumption? None [email or web address] Information not available 09/20/2022 Mental Status None recorded. Family History Relationship Description Onset Age of this Age Resolved Age Notes LastModified by Organization Details LastModified Time Mother Hypertensive disorder [email or web address] Not available 09:14:55 Medical History Condition Response Hypertension Y Asthma Y Gynecological HistoryNo gynecological history recorded. Obstetrics History GPAL:G 0 P 0 0 0 0 Past Encounters Encounter ID Performer Location Encounter Start Date Encounter Closed Date Diagnosis/Indication Diagnosis SNOMED-CT Code Diagnosis ICD10 Code Diagnosis Note [id number] [address] [place] [address] 09/20/2022 08:51:15 09/20/2022 10:05:07 History of right total knee replacement 2025077271 884176 Z96.651 Pain of ri ght hip joint 2129330310 07207 M25.551 Chronic pa in following right total knee arthroplasty 9216033001 4524723 T84.84XD Osteoarthr itis of right hip joint 6431626987 97957 M16.11 [id number] MAL[address]I REEVESshayy [place] [address] [facility] [address] [place] [address] 10/06/2022 15:37:18 10/06/2022 16:02:05 Chronic low back pain 590180105 M54.50 [id number] MD ASHA Puentes OuiCarshayy [address] [place] [address] 12/10/2022 09:54:03 12/10/2022 10:37:11 Osteoarthritis of left knee joint 2958612229 57552 M17.12 Osteoarthr itis of right knee joint 9186605583 45059 M17.11 [id number] MALATHI REEVES OuiCarshayy [address] [place] [address] 03/23/2023 13:35:00 03/23/2023 14:49:57 History of right total knee replacement 6888848460 371378 Z96.651 Pain of le ft knee joint 0610575859 41083 M25.562 Chronic pa in following right total knee arthroplasty 6390416223 2585526 T84.84XD [id number] MALATHI REEVESshayy [address] [place] [address] 04/06/2023 15:27:54 04/06/2023 15:56:31 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 2175921984 6308469 T84.84XD Effusion of joint 547926 008 M25.40 M25.461 Synovasure sent off [id number] MD ASHA Puentes [address] [place] [address] 05/06/2023 10:16:44 05/06/2023 11:14:48 Pain of right knee joint 5088156316 32640 M25.561 Chronic pa in following right total knee arthroplasty 0986373464 8010035 T84.84XD [id number] MALATHI REEVES [facility] 299 [facility] [address] [place] [address] 07/28/2023 11:02:47 07/28/2023 11:31:59 Pain of left knee joint 3403196195 93609 M25.562 Health Concerns Section Related Observation LastModified by Organization Detai ls LastModified Time None Recorded Concern Status LastModified by Organization Details LastModified Time None Recorded Advance Directives Directive None Recorded Payers Insurance Date Sequence Insurance Name Policy Number Policy Moreno Covered Member ID Moreno Member ID Guarantor Name 01/09/2024 1 [facility] Joana Javier [id number] Joana Javier Notes Date Note Type [...] knee, viscosupplement (PROC) DAPHNEY BALDERAS PA-C [address] [facility] [address], [place], [address], [place] [facility] 03/24/2023 08:23:45 3 text/html Prior Visit Dr. Isbellment/Plan: 3Patient has some baseline pain following right [...] right knee joint. DAPHNEY BALDERAS PA-C [address] [facility],[address] [address], [place], [address], [place] [facility] 04/07/2023 07:33:31 4 text/html Pleasant 62-year-old female degenerative joint disease of the left knee gets good relief with cortisone injections. Is been greater than 3 months since her last cortisone injection. Pain is medial nature gets worse with walking. She is DAPHNEY BALDERAS PA-C [address] [facility],[address] [address], [place], [address], [place] [facility] 07/29/2023 08:26:04 OBGyn Episode No OBEpisode recorded.
== END 2024-11-15 11:51 | disposition home or self-care (01) ==
LOC: HO.HOS 11:22
PROVIDERS: PCP Internal Medicine; Visit Provider Orthopaedic Surgery
DX: M17.12 Unilateral primary osteoarthritis, left knee (principal)
CPT/HCPCS: 20610; 99213

== ENCOUNTER → 2024-11-15 11:22 | Outpatient (BNVA) | payer OTHER, SELFPAY | PROVIDERS: PCP Internal Medicine; Visit Provider Orthopaedic Surgery | DX: M17.12 Unilateral primary osteoarthritis, left knee (principal) | CPT/HCPCS: 20610; J1010; J2003 ==

== ENCOUNTER 2024-11-26 12:53 | Outpatient (AMB) | payer OTHER, SELFPAY ==
[2024-11-26 12:55] VITALS: BP 120/80; PULSE 80; BMI 33.3
--- NOTE | 2024-11-26 12:55 | A.OFFVIS_ITS ---
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 SKEINS/ Sangeeta/ palpitations Intake Note: New patient dx palpitations Allergies No Known Allergies (No Known Allergies*) Allergy (Verified 11/15/24 11:29) Medication List - Last Reconciled 11/26/24 by Ponhco Dukes MD albuterol sulfate 90 mcg/actuation 2 puffs inhalation Q4H PRN bupropion HCl XL 300 mg PO DAILY gabapentin 300 mg PO BEDTIME irbesartan 75 mg PO DAILY lorazepam 0.5 mg PO BEDTIME PRN meloxicam 15 mg PO DAILY PRN methocarbamol 750 mg PO Q8H PRN montelukast (Singulair) 10 mg PO BEDTIME omeprazole 20 mg PO DAILY HPI Comments Details: Joana has been referred for evaluation of palpitations. She was actually referred by her prior PCP Dr. Valentine who has since retired. She apparently had flu the beginning of the year. After that, she has been having palpitations. Lot of times, she feels this when she is doing things like climbing stairs. She can also feel short of breath with activity like climbing stairs or carrying some weight. She however has a history of asthma as well. Otherwise, no prior history of cardiovascular issues including coronary disease or myocardial infarction or cardiomyopathy or anything else of concern. [facility] Medical History (Updated 11/26/24 @ 13:31 by Poncho Dukes MD) Stress incontinence GERD (gastroesophageal reflux disease) Depression Anxiety Asthma HTN (hypertension) Surgical History History of colonoscopy (~07/21/12) Total knee replacement status History of suburethral sling procedure History of appendectomy History of endometrial ablation Family History (Updated 10/05/24 @ 14:34 by Debbie Gonzalez MA) Mother No problems noted. Father No problems noted. 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 Gender identity: Female Cognitive needs: No Hearing needs: No Vision needs: Yes (rx glasses) Female Reproductive History Menstrual Age of Menarche: 14 Review of Systems Const Denies chills, Denies daytime sleepiness, Denies fatigue, Denies fever(s), Shahzad es frequent falls, Denies poor appetite, Denies snoring, Denies stops breathing during sleep, Denies weakness, Denies weight gain and Denies weight loss Eyes Denies loss of vision ENT Denies dizziness and Denies hearing loss Card Denies chest pain, Denies claudication, Denies leg edema, Denies lightheadedness, Reports palpitations, Denies dyspnea, Denies dyspnea on exertion and Denies orthopnea Resp Denies cough, Denies excessive phlegm production, Denies dyspnea, Denies dyspnea on exertion, Denies snoring and Denies wheezing GI Denies abdominal pain, Denies hematochezia, Denies change in bowel habits, Denies nausea and Denies vomiting Denies urinary frequency and Denies dysuria Musc Denies arthralgias, Denies muscle weakness, Denies numbness and Denies other (frequent falls) Skin/Breast Denies nail changes and Denies rash Neuro Denies Abnormal speech present, Denies dizziness, Denies frequent falls, Denies loss of vision, Denies memory loss, Denies numbness and Denies weakness Psych Denies depression and Denies memory loss Endo Denies fatigue and Reports palpitations John/Lymph Reports easy bruising and Reports other (anemia) Aller/Immun Denies wheezing Physical Exam Vital Signs: Last Vital Signs Pulse 80 11/26/24 12:55 BP 120/80 11/26/24 12:55 BMI result Body Mass Index 33.3 Const General: comfortable and no acute distress Orientation/consciousness: patient oriented x3 HEENT Other: Unremarkable Head: Yes normal to inspection Neck Neck: Yes normal visual inspection Chest Chest palpation & inspection: normal inspection of the chest Resp Auscultation: clear to auscultation bilaterally Cardio Palpation: normal PMI Heart sounds: S1 normal heart sound present, S2 normal heart sound present, no gallops, no murmurs and no rubs GI Palpation (GI): Soft to palpation Back/Spine/Pelvis Other: unremarkable Skin General skin exam: no rashes or lesions noted Neuro General: patient oriented x3 Speech: No Abnormal speech present Extrem General: Yes normal to inspection Psych Mental Status: mental status grossly normal Office Procedures EKG Details: EKG with underlying sinus rhythm at 80/Min; cannot exclude old anterior infarct but more likely from body habitus; [place]. [id number], Complete Assessment & Plan Assessment & Plan (1) Heart palpitations: Code(s): R00.2 - Palpitations Category: Medical Plan Exertional palpitations following influenza. Could be sinus tachycardia. Less likely atrial arrhythmias or anything else. We will start with an echocardiogram to assess for any cardiomyopathy. Holter monitor. Follow-up after the above. Discussion Notes I discussed with the patient the plan to order a heart ultrasound and provide a heart monitor to evaluate her symptoms of palpitations. I explained the importa nce of documenting the timing of her symptoms for accurate assessment. We agreed to follow up after the tests to determine the next steps based on the results. Patient was informed and verbally consented to the use of an ambient scribe for clinic note documentation during this visit. Orders: Orders CA echo transthoracic complete Today R00.2 - Palpitations ECG 3 day holter monitor Today R00.2 - Palpitations Patient Instructions: - Use the heart monitor as instructed and log any palpitations. - Schedule an appointment for the echocardiogram. - Follow up after completing the tests. Coding Level of Care Code New Pt Level 3 (24343) Diagnoses Heart palpitations R00.2 CPT Codes EKG - CPT: 56944-Btrycokclnqfhtglg, Complete ([id number])
--- OUTSIDE RECORDS SUMMARY | 2024-11-26 14:12 | XMS_ITS | Patient Health Record ---
Author Organization [facility] Address [address] [place] [address] Care Team Providers Care Cosmetic Sales Assistant Name Role Phone Sherif Valentine MD Primary Care Provider Toney Camp Unavailable [phone] Reason For Referral No Information Medications Medication SIG (Take, Route, Fr equency, Duration) Notes Start Date End Date Status Wellbutrin Active MoviPrep 100 GM as directed Orally once for 1 dose 02/22/2012 Active Problems Problem Type SNOMED Code ICD Code Onset Dates Problem Status W/U Status Risk Notes Problem Colon cancer screening (V76.51) Active confirmed Plan Of Treatment Future Test Test Name Order Date COLONOSCOPY 02/22/2012 Insurance Providers Payer Name Payer Address Payer Phone Subscriber Number Group Number Insured Name Patient Relationship to Insured Coverage Start Date Coverage End Date [facility] [address] [place], [place] [id number] RAJENDRA BERRY Self - patient is the insured Medical (General) History Medical History History ICD Code 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
== END 2024-11-26 13:25 | disposition home or self-care (01) ==
LOC: HO.HCS 12:53
PROVIDERS: PCP Internal Medicine; Visit Provider Internal Medicine
DX: R00.2 Palpitations (principal)
CPT/HCPCS: 93010; 99203

== ENCOUNTER → 2024-11-26 12:53 | Outpatient (BNVA) | payer OTHER, SELFPAY | PROVIDERS: PCP Internal Medicine; Visit Provider Internal Medicine | DX: R00.2 Palpitations (principal); I10 Essential (primary) hypertension | CPT/HCPCS: 93005 ==

== ENCOUNTER → 2024-12-28 09:50 | Outpatient (REF) | payer OTHER, SELFPAY ==
--- NOTE | 2024-12-28 09:52 | HM_ITS ---
* Total monitoring time 3 days. * Underlying rhythm is sinus with an average rate of 82/Min. * Rare supraventricular ectopy. Very brief runs, up to 15 beats. * Rare ventricular ectopy. One triplet. * No significant pauses or high-grade AV blocks. * No patient markers or diary events. MTDD
--- OUTSIDE RECORDS SUMMARY | 2024-12-28 10:05 | XMS_ITS | Clinical Summary ---
Author Organization [facility] it Address [id number] [place] [address] Care Team Providers Care Technical Producer Name Role Phone Sherif Valentine MD Primary Care Provider [phone] Medical History Medical History Date Comments Asthma [...] 2) 12/14/2011 Colorectal Cancer Screening: Colonoscopy 05/09/2022 HIV Screening 05/09/2022 Hepatitis C Screening 05/09/2022 Social Influencers of Health Screening 05/09/2022 COVID-19 Vaccine ( - 2023-2 5 season) 2024 Depression Screening 06/06/2024 Influenza Vaccine (#1) 2025 RSV Immunization Adult Patie nts (1 [...] Documents on File Type Date Recorded Patient Md Pediatric Allergist Expl anation Health Care Decision (hx) 04/28/2021 AD ARMENDAIRZ DIRECTIVE Health Care Decision (hx) 04/28/2021 AD ARMENDARIZ DIRECTIVE Health Care Decision (hx) 04/18/2021 AD ARMENDARIZ DIRECTIVE Health Care Decision (hx) 04/18/2021 AD ARMENDARIZ DIRECTIVE Health Care Decision (hx) 04/18/2021 AD ARMENDARIZ DIRECTIVE Health Care Decision (hx) 04/17/2021 AD ARMENDARIZ DIRECTIVE Health Care Decision (hx) 04/17/2021 AD ARMENDARIZ DIRECTIVE Health Care Decision (hx) 04/17/2021 AD ARMENDARIZ DIRECTIVE Care Teams Technical Producer Relationship Specialty Start Date End Date Sherif Valentine MD [address] [place] [address] Dr Rizwana MA PCP - General Senior Management Consultant 01/16/21
--- OUTSIDE RECORDS SUMMARY | 2024-12-28 10:05 | XMS_ITS | Patient Health Record ---
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
--- OUTSIDE RECORDS SUMMARY | 2024-12-28 10:05 | XMS_ITS | Clinical Summary ---
Author Organization [facility] Address [address] [place], [place] [id number] Care Team Providers Care Criminology Teacher Name Role Phone Sherif Valentine MD Primary Care Provider [phone] Allergies Active Allergy Reactions Criticality Noted Date [...] 10/03/2020 09/05/2020 , 08/06/2020 Influenza Vaccine (#1) 2025 RSV Adult > 60+ Yrs or (1 [...] age to complete this topic Care Teams Criminology Teacher Relationship Specialty Start Date End Date Sherif Valentine MD [address] [place] [address] [place] [address] PCP - General Furnace Cooler 01/16/21
--- OUTSIDE RECORDS SUMMARY | 2024-12-28 10:05 | XMS_ITS | Data Portability ---
Author Organization [place] [facility] Brian Perez [place] Address [address] [place] [address] Care Team Providers Care Director Of Search Engine Optimization Name Role Phone JUAN LUIS ZUNIGA Primary Care Provider [phone] Assessment Encounter Date Assessment Date Assessment LastModified [...] insurance for Visco Authorizati on, insurance preferred med. Knee Laterality: left 2022 023 [email or web address] Not available 3 15:44:20 Surgeries None recorded. Imaging XR, knee, 4 or more view 2022 023 [email or web address] [facility], [address], [place], [address], 3 12:06:13 XR, knee, 4 or more view 2022 023 [email or web address] [facility], [address], [place], [address], 3 12:06:13 Medication Orders Kenalog 40 mg/mL suspension for injection 2023 024 [email or web address] [id number], [address] [place], [address], 4 08:25:40 lidocaine (PF) 10 mg/mL (1 %) injection solution 2023 024 [email or web address] Not available 4 08:58:03 Kenalog 40 mg/mL suspension for injection 2022 023 [email or web address] [id number], [address] [place], [address], 3 14:42:37 lidocaine (PF) 10 mg/mL (1 %) injection solution 2022 023 [email or web address] [id number], [address] [place], [address], 3 14:42:37 Patient TargetsNo targets recorded. 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 5440509195573 9100 Active 2022 DAPHNEY BALDERAS PA-C [address], [place], [address], [place] [facility] 3 09:53:04 Osteoarthri tis of right hip joint 8940885590450 07 Active 2022 DAPHNEY BALDERAS PA-C [address], [place], [address], [place] [facility] 3 10:05:26 Chronic low back pain 214958875 Active 2022 DAPHNEY BALDERAS PA-C [address], [place], [address], [place] [facility] 3 16:33:54 Effusion of joint 333915080 Active 2022 DAPHNEY BALDERAS PA-C [address], [place], [address], [place] [facility] 3 16:15:39 Pain of right knee joint 3323489405344 00 Active 2022 Marino Aguero MD [address], [place], [address], [place] [facility] 3 11:09:13 Pain of left knee joint 5377530036601 07 Active 2023 DAPHNEY BALDERAS PA-C [address], [place], [address], [place] [facility] 4 08:18:09 Problem Notes None recorded. Procedures Surgical History Date Name Laterality Status Provider Name and Address Organization Details Recorded Time 07/28/2023 Knee Joint/Burs a Asp & Inj completed DAPHNEY BALDERAS PA-C [address], [place], [address], [place] [facility] 07/29/2023 08:18:06 04/06/2023 Knee Joint/Burs a Asp & Inj completed DAPHNEY BALDERAS PA-C [address] [facility],[address], [place], [address], [place] [facility] 04/06/2023 16:15:13 03/23/2023 Knee Joint/Burs a Asp & Inj completed DAPHNEY BALDERAS PA-C [address] [facility],[address], [place], [address], [place] [facility] 03/24/2023 08:20:47 Imaging Results None recorded. [...] Address Organization Details Last Updated DateTime 12/10/2022 18372.17 g 34.4 kg/m2 167.[address] [place] [facility] 12/10/2022 10:13:24 Date Recorded Body height Provider Name an d Address Organization Details Last Updated DateTime 03/23/2023 [address] [place] [facility] 03/23/2023 14:07:34 Date Recorded Body height Body mass index (BMI) Body weight Provider Name and Address Organization Details Last Updated DateTime 05/06/2023 167.64 cm 34.4 kg/m2 66518.[address] [place] [facility] 05/06/2023 10:43:42 Social History None recorded. Functional Status Question Answer Note LastModified by Organizat ion Details LastModified Time Do you use any illicit or recreational drugs? No [email or web address] Information not available 09/20/2022 Do you or have you ever used any other forms of tobacco or nicotine? No [email or web address] Information not available 09/20/2022 What is your level of alcohol consumption? None [email or web address] Information not available 09/20/2022 Mental Status None recorded. Family History Relationship Description Onset Age of this Age Resolved Age Notes LastModified by Organization Details LastModified Time Mother Hypertensive disorder [email or web address] Not available 09:14:55 Medical History Condition Response Hypertension Y Asthma Y Gynecological HistoryNo gynecological history recorded. Obstetrics History GPAL:G 0 P 0 0 0 0 Past Encounters Encounter ID Performer Location Encounter Start Date Encounter Closed Date Diagnosis/Indication Diagnosis SNOMED-CT Code Diagnosis ICD10 Code Diagnosis Note [id number] MALATHI REEVESshayy [address] [facility] [address] [facility] [place] [address] 09/20/2022 08:51:15 09/20/2022 10:05:07 History of right total knee replacement 7654595243 211424 Z96.651 Pain of ri ght hip joint 3031478730 19159 M25.551 Chronic pa in following right total knee arthroplasty 6242895636 0412412 T84.84XD Osteoarthr itis of right hip joint 7215446249 41814 M16.11 [id number] MALATHI REEVES [employer]shayy [address] [facility] [address] [place] [address] 10/06/2022 15:37:18 10/06/2022 16:02:05 Chronic low back pain 882991736 M54.50 [id number] MD ASHA Puentes [employer]count includes the [facility] [address] [place] [address] 12/10/2022 09:54:03 12/10/2022 10:37:11 Osteoarthritis of left knee joint 0737723895 22510 M17.12 Osteoarthr itis of right knee joint 7130935703 38835 M17.11 [id number] MALATHI REEVES [address] [facility] [address] [place] [address] 03/23/2023 13:35:00 03/23/2023 14:49:57 History of right total knee replacement 3823932997 867848 Z96.651 Pain of le ft knee joint 7177624131 70235 M25.562 Chronic pa in following right total knee arthroplasty 8350841111 6349502 T84.84XD [id number] MALATHI REEVESshayy [address] [facility] [address] [place] [address] 04/06/2023 15:27:54 04/06/2023 15:56:31 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 2762801036 5365166 T84.84XD Effusion of joint 480300 008 M25.40 M25.461 Synovasure sent off [id number] MD ASHA Puentesshayy [address] [facility] [address] [place] [address] 05/06/2023 10:16:44 05/06/2023 11:14:48 Pain of right knee joint 5773021689 77321 M25.561 Chronic pa in following right total knee arthroplasty 7784352625 8620396 T84.84XD [id number] MALATHI REEVES [employer] includes the [facility] [address] [facility] [address] [place] [address] 07/28/2023 11:02:47 07/28/2023 11:31:59 Pain of left knee joint 9972162491 00905 M25.562 Health Concerns Section Related Observation LastModified by Organization Detai ls LastModified Time None Recorded Concern Status LastModified by Organization Details LastModified Time None Recorded Advance Directives Directive None Recorded Payers Insurance Date Sequence Insurance Name Policy Number Policy Moreno Covered Member ID Moreno Member ID Guarantor Name 01/09/2024 1 [facility] Joana Javier [id number] 1 Joana Javier Notes Date Note Type [...] knee, viscosupplement (PROC) DAPHNEY BALDERAS PA-C [address] [facility] [address], [place], [address], [place] [facility] 03/24/2023 08:23:45 3 text/html Prior Visit Dr. Moffettssessment/Plan: 3Patient has some baseline pain following right [...] right knee joint. DAPHNEY BALDERAS PA-C [address] [facility] [address], [place], [address], [place] [facility] 04/07/2023 07:33:31 4 text/html Pleasant 62-year-old female degenerative joint disease of the left knee gets good relief with cortisone injections. Is been greater than 3 months since her last cortisone injection. Pain is medial nature gets worse with walking. She is DAPHNEY BALDERAS PA-C [address] [facility],[address], [place], [address], [place] [facility] 07/29/2023 08:26:04 OBGyn Episode No OBEpisode recorded.
== END ==
LOC: HO.CARD 09:50
PROVIDERS: PCP Internal Medicine; Visit Provider Internal Medicine
DX: R00.2 Palpitations (principal)
CPT/HCPCS: 93242

== ENCOUNTER → 2024-12-28 09:52 | Outpatient (BNV) | payer OTHER, SELFPAY | PROVIDERS: PCP Internal Medicine; Visit Provider Internal Medicine | DX: I47.10 Supraventricular tachycardia, unspecified (principal); I49.3 Ventricular premature depolarization | CPT/HCPCS: 93244 ==

== ENCOUNTER 2025-01-24 14:45 | Outpatient (AMB) | payer OTHER, SELFPAY ==
--- NOTE | 2025-01-24 14:48 | MHC.OFFVIS ---
Vital Signs 01/24/25 14:49 Height 5 ft 4 in Weight 201 lb 0.985 oz BMI 34.5 BP 120/82 Blood Pressure Location Lt brachial Position Sitting Pulse 99 Pulse Source Pulse Oximeter Intake Visit Reasons: f/up echo/ 3 day HS Bolt Machine Operator Required: No Allergies No Known Allergies (No Known Allergies*) Allergy (Verified 01/24/25 14:50) Medication List - Last Reconciled 01/24/25 by Aleja Daniel NP-C albuterol sulfate 90 mcg/actuation 2 puffs inhalation Q4H PRN bupropion HCl XL 300 mg PO DAILY gabapentin 300 mg PO BEDTIME irbesartan 75 mg PO DAILY lorazepam 0.5 mg PO BEDTIME PRN meloxicam 15 mg PO DAILY PRN omeprazole 20 mg PO DAILY HPI HPI f/up echo/ 3 day HS: Details: Benita is a 64-year-old female with past medical history of hypertension, obesity, influenza June 2024 followed by issues with heart palpitations. On last visit a Holter monitor and echocardiogram were ordered however echo was declined by insurance. She did wear the Holter monitor and now presents for follow-up. Today she reports that she is doing well overall. She says she no longer has heart palpitations. She believes it was the increased use of her albuterol inhaler following her influenza that caused her heart palpitations. She has no cardiac concerns. She denies chest discomfort at rest or with activity. She does have shortness of breath at times that she relates to asthma. She reports good activity tolerance. [facility] Medical History Stress incontinence GERD (gastroesophageal reflux disease) Depression Anxiety Asthma HTN (hypertension) Surgical History History of colonoscopy (~07/21/12) Total knee replacement status History of suburethral sling procedure History of appendectomy History of endometrial ablation Family History Mother No problems noted. Father No problems noted. 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 Gender identity: Female Cognitive needs: No Hearing needs: No Vision needs: Yes (rx glasses) Female Reproductive History Menstrual Age of Menarche: 14 Review of Systems Const All systems reviewed & are unremarkable except as noted in HPI and below ENT Denies dizziness Card Denies chest pain, Denies chest pain at rest, Denies chest pain with activity, Denies rapid heart rate, Denies pedal edema, Denies edema, Denies leg edema, Denies lightheadedness, Denies palpitations, Denies dyspnea, Denies dyspnea on exertion and Denies orthopnea Resp Denies cough, Denies dyspnea and Denies dyspnea on exertion GI Denies hematochezia and Denies change in stool character Musc Denies abnormal gait, Denies limited range of motion, Denies muscle cramps, Denies muscle weakness, Denies numbness, Denies radiating pain into limb, Denies stiffness and Denies tingling Neuro Denies abnormal gait, Denies dizziness, Denies numbness and Denies tingling Endo Denies palpitations Physical Exam Vital Signs: BMI result Body Mass Index 34.5 Const General: cooperative, healthy appearing, comfortable and no acute distress Orientation/consciousness: patient oriented x3 Neck Neck: Yes normal visual inspection Resp Effort & Inspection: normal respiratory effort Auscultation: clear to auscultation bilaterally, no crackles, no rales, no rhonchi and no wheezes Cardio Rate: regular rate Rhythm: regular rhythm Heart sounds: S1 normal heart sound present, S2 normal heart sound present, no gallops, no murmurs and no rubs Neuro General: patient oriented x3 Extrem General: Yes normal to inspection, No no pedal edema and No calf tenderness Psych Appearance: grossly normal Mental Status: mental status grossly normal Speech and movement: Normal speech and movement present Assessment & Plan Assessment & Plan (1) Heart palpitations: Code(s): R00.2 - Palpitations Category: Medical Plan: Prior reports of heart palpitations following sickness with influenza. Symptoms have fully resolved and she believes may have been related to her increased use of albuterol inhaler. Holter monitor done 12/28/2024 for 3 days shows sinus rhythm with average heart rate 82 beats per minute, rare PACs and PVCs, brief atrial runs, longest 15 beats. Discuss this finding with her. Pulse is regular on examination today. Reviewed good hydration, limiting caffeine intake and maintain good activity levels. Cardiology follow-up PRN. (2) Atrial tachycardia: Comment: Brief runs on holter, longest 15 beats 12/28/24 Code(s): I47.19 - Other supraventricular tachycardia Category: Medical Plan: Brief episodes as above. Plan I discussed with the patient that her heart monitor showed occasional brief atrial tachycardia, which is not harmful. We talked about the impact of caffeine and albuterol on heart rate and the importance of moderating these to manage symptoms. I advised her to follow up with cardiology if her symptoms reoccur. Patient Instructions: - Limit caffeine intake - Use albuterol inhaler as needed, being aware that may increase heart rate - Hydrate well when doing activities outside. - Follow up with cardiology if symptoms persist or worsen Patient was informed and verbally consented to the use of an ambient scribe for clinic note documentation during this visit. Visit time spent on chart review, interview, assessment, orders, documentation. Coding Level of Care Code Est Pt Level 3 (62556) Complex EM visit Add On G2211 Diagnoses Heart palpitations R00.2 Atrial tachycardia I47.19 Time Spent (min) 22
[2025-01-24 14:49] VITALS: BP 120/82; PULSE 99; BMI 34.5
--- OUTSIDE RECORDS SUMMARY | 2025-01-24 14:51 | XMS_ITS | Clinical Summary ---
Author Organization [facility] it Address [address] [place] [address] Care Team Providers Care Printed Circuit Board Layout Designer Name Role Phone Sherif Valentine MD Primary Care Provider Medical History Medical History Date Comments Asthma [...] Documents on File Type Date Recorded Patient Patch Washer Expl anation Health Care Decision (hx) 04/28/2021 [...] (hx) 04/17/2021 AD ARMENDARIZ DIRECTIVE Care Teams Printed Circuit Board Layout Designer Relationship Specialty Start Date End Date Sherif Valentine MD [address] [place] [address] Dr Rizwana [place] PCP - General Equipment Technician 01/16/21
--- OUTSIDE RECORDS SUMMARY | 2025-01-24 14:51 | XMS_ITS | Clinical Summary ---
Author Organization [facility] Address [address] [place], [place] [address] Care Team Providers Care Recovery Coach Name Role Phone Sherif Valentine MD Primary Care Provider [phone] Allergies Active Allergy Reactions Criticality Noted Date [...] age to complete this topic Care Teams Recovery Coach Relationship Specialty Start Date End Date Sherif Valentine MD [address] [place] [address] [place] [address] PCP - General Sandblast Or Shotblast Equipment Tender 01/16/21
--- OUTSIDE RECORDS SUMMARY | 2025-01-24 14:51 | XMS_ITS ---
Author Name [facility] Organization Unknown History of Medication Use Medication Directions Dispensed Refills Start Date End Date Stat Kenalog 40 mg/mL suspension for injection Take 1 mL by injection route. 03/23/2023 active lidocaine (PF) 10 mg/mL (1 %) injection solution Take 2 mL by injection route. 03/23/2023 active albuterol sulfate HFA 90 mcg/actuation aerosol inhaler INHALE 2 PUFFS INTO THE LUNGS USING INHALER EVERY 4 HOURS NEEDED 03/23/2023 active meloxicam 15 mg tablet TAKE 1 TABLET BY MOUTH EVERY DAY FOR 30 DAYS 09/20/2022 completed Paxlovid 300 mg (150 mg x 2)-100 mg tablets in a dose pack PER PCKG DIRECTIONS 09/20/2022 completed amoxicillin 500 mg tablet TAKE 4 TABS 1 HOUR PRIOR TO DENTAL APPOINTMENT active bupropion HCl XL 300 mg 24 hr tablet, extended release TAKE 1 TABLET BY MOUTH EVERY DAY IN THE MORNING active Problems Problem Status Onset Date Problem Type Date of Resoluti on Source Osteoarthritis of right hip joint active 2022-09-20 [facility] Pain of left knee joint active 2023-07-29 [facility]Act [facility] Effusion of joint active 2023-04-06 [facility]Act [facility] Pain of right knee joint active 2023-05-06 [facility]Act [facility] 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 Chronic low back pain active 2022-10-07 ProblemAct [facility] Encounters Encounter Type Encounter Reason Primary Diagnosis Location Date Ambulatory [facility] 07/28/2023 Ambulatory [facility] 05/27/2023 Ambulatory [facility] 05/06/2023 Ambulatory [facility] 04/06/2023 Ambulatory [facility] 03/23/2023 Ambulatory [facility] 03/16/2023 Ambulatory [facility] 02/24/2023 Ambulatory [facility] 12/10/2022 Ambulatory [facility] 10/08/2022 Ambulatory [facility] 10/06/2022 Ambulatory [facility] 10/04/2022 Care Team Organization Name Specialty Phone Email Start Date End Da te [facility] JUAN LUIS ZUNIGA Primary Care 05/06/202201/22
--- OUTSIDE RECORDS SUMMARY | 2025-01-24 14:51 | XMS_ITS | Patient Health Record ---
Author Organization [facility] Address [address] [place] [address] Care Team Providers Care Carding Supervisor Name Role Phone Serge (RETIRED) Sherif HENDRICKSON Primary Care Provide r Unavailable Toney Mooney Unavailable [phone] Reason For Referral No Information Medications Medication SIG (Take, Route, Fr equency, Duration) Notes Start Date End Date Status Wellbutrin Active MoviPrep 100 GM as directed Orally once for 1 dose 02/22/2012 Active Problems Problem Type SNOMED Code ICD Code Onset Dates Problem Status W/U Status Risk Notes Problem Colon cancer screening (551930931) Colon cancer screening (V76.51) Active confirmed Plan Of Treatment Future Test Test Name Order Date COLONOSCOPY 02/22/2012 Insurance Providers Payer Name Payer Address Payer Phone Subscriber Number Group Number Insured Name Patient Relationship to Insured Coverage Start Date Coverage End Date [facility] [address] [place], [place] [id number] RAJENDRA BERRY Self - patient is the insured Medical (General) History Medical History History ICD Code 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
== END 2025-01-24 15:04 | disposition home or self-care (01) ==
LOC: HO.HCS 14:46
PROVIDERS: PCP Internal Medicine; Visit Provider Nurse Practitioner Family
DX: R00.2 Palpitations (principal); I47.19 Other supraventricular tachycardia
CPT/HCPCS: 99213

== ENCOUNTER 2025-02-19 11:02 | Outpatient (AMB) | payer OTHER, SELFPAY ==
--- NOTE | 2025-02-19 11:10 | MHC.OFFVIS ---
Vital Signs 02/19/25 11:13 Height 5 ft 4 in Weight 196 lb BMI 33.6 Intake Visit Reasons: Left knee pain Intake Note: Joana is a 64 year old female who presents with complaints of progressively worsening left knee pain. She describes her pain as sharp in nature. Her pain has gotten worse over the last few years in spite of continued non operative treatments. She wishes to hold off on left total knee replacement surgery for as long as possible. She has failed the last 3 months of conservative treatment which has included Tylenol, anti-inflammatory medicines, gabapentin, a home exercise program and physical therapy exercises. She has had cortisone injections in the past which gave her only mild relief. At this point her left knee pain is interfering with her activities of daily living and her ability to sleep well through the night. Allergies No Known Allergies (No Known Allergies*) Allergy (Verified 02/19/25 11:12) Medication List - Last Reconciled 02/19/25 by Nicolas Medley MD albuterol sulfate 90 mcg/actuation 2 puffs inhalation Q4H PRN bupropion HCl XL 300 mg PO DAILY gabapentin 300 mg PO BEDTIME irbesartan 75 mg PO DAILY lorazepam 0.5 mg PO BEDTIME PRN meloxicam 15 mg PO DAILY PRN omeprazole 20 mg PO DAILY PFSH Medical History Stress incontinence GERD (gastroesophageal reflux disease) Depression Anxiety Asthma HTN (hypertension) Surgical History History of colonoscopy (~07/21/12) Total knee replacement status History of suburethral sling procedure History of appendectomy History of endometrial ablation Family History Mother No problems noted. Father No problems noted. 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 Gender identity: Female Cognitive needs: No Hearing needs: No Vision needs: Yes (rx glasses) Female Reproductive History Menstrual Age of Menarche: 14 Physical Exam Vital Signs: BMI result Body Mass Index 33.6 Const Other: Well-nourished well-developed very friendly female awake alert and oriented x3 in no acute distress Extrem Other: Bilateral lower extremity examination shows good capillary refill, no skin lesions noted, normal sensation light touch Left knee examination shows a minimal effusion, palpable crepitus with range of motion, pain with range of motion, no instability Office Procedures AMB Joint Injection/Aspiration Joint Injection/Aspiration Primary Site: left knee Prep: site was prepped using aseptic technique Injected: 40 mg of, DepoMedrol and 1% plain lidocaine Procedure: The patient tolerated the procedure well Coding - Large joint Procedure code (CPT) selection complete Results Reviewed Results Reviewed: X-rays of the patient's left knee taken previously show joint space narrowing, subchondral sclerosis, no acute bony abnormalities Assessment & Plan Assessment & Plan (1) Osteoarthritis of left knee: Code(s): M17.12 - Unilateral primary osteoarthritis, left knee Category: Medical (2) Left knee pain: Code(s): M25.562 - Pain in left knee Category: Medical Plan Ms. Javier presents with left knee pain due to osteoarthritis. The risks and benefits of a left knee cortisone injection were discussed at length with the patient. The patient wished to proceed. She tolerated the injection well. I will also see if the patient's insurance company will cover a viscosupplementation injection, such as Durolane, for her left knee. I will see her back on 05/21/2025. Feel free to call me at any time should questions regarding her orthopedic management arise. I spent 20 minutes in reviewing the patient's records and imaging studies, seeing the patient and documenting in the medical record. Orders: Orders AMB Joint Injection/Aspiration Today M17.12 - Unilateral primary osteoarthritis, left knee Coding Level of Care Code Est Pt Level 3 (05610) Complex EM visit Add On G2211 Diagnoses Osteoarthritis of left knee M17.12 Left knee pain M25.562 CPT Codes Coding - Large joint: 09282 - Large joint ([id number])
[2025-02-19 11:13] VITALS: BMI 33.6
--- OUTSIDE RECORDS SUMMARY | 2025-02-19 14:59 | XMS_ITS | Clinical Summary ---
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
--- OUTSIDE RECORDS SUMMARY | 2025-02-19 14:59 | XMS_ITS | Patient Health Record ---
Author Organization [facility] Address [address] [place] [address] Care Team Providers Care Entertainment Centre Manager Name Role Phone Serge (RETIRED) Sherif HENDRICKSON Primary Care Provide r Unavailable Toney Mooney Unavailable [phone] Reason For Referral No Information Medications Medication SIG (Take, Route, Fr equency, Duration) Notes Start Date End Date Status Wellbutrin Active MoviPrep 100 GM as directed Orally once for 1 dose 02/22/2012 Active Problems Problem Type SNOMED Code ICD Code Onset Dates Problem Status W/U Status Risk Notes Problem Colon cancer screening (700705329) Colon cancer screening (V76.51) Active confirmed Plan Of Treatment Future Test Test Name Order Date COLONOSCOPY 02/22/2012 Insurance Providers Payer Name Payer Address Payer Phone Subscriber Number Group Number Insured Name Patient Relationship to Insured Coverage Start Date Coverage End Date [facility] [address] [place], [place] [id number] [phone] [id number] RAJENRDA BERRY Self - patient is the insured Medical (General) History Medical History History ICD Code 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
== END 2025-02-19 11:45 | disposition home or self-care (01) ==
LOC: HO.HOS 11:03
PROVIDERS: PCP Internal Medicine; Visit Provider Orthopaedic Surgery
DX: M17.12 Unilateral primary osteoarthritis, left knee (principal); M25.562 Pain in left knee
CPT/HCPCS: 20610; 99213

== ENCOUNTER → 2025-02-19 11:02 | Outpatient (BNVA) | payer OTHER, SELFPAY | PROVIDERS: PCP Internal Medicine; Visit Provider Orthopaedic Surgery | DX: M25.562 Pain in left knee (principal); M17.12 Unilateral primary osteoarthritis, left knee | CPT/HCPCS: 20610; J1010; J2003 ==

== ENCOUNTER 2025-03-18 15:08 | Outpatient (AMB) | payer OTHER, SELFPAY ==
--- NOTE | 2025-03-18 15:11 | MHC.OFFWIV ---
Intake Vital Signs 03/18/25 15:12 Height 5 ft 4 in Weight 200 lb BMI 34.3 BP 126/80 Blood Pressure Location Lt brachial Position Sitting Pulse 74 Pulse Source Pulse Oximeter Temp 97.9 F Temp Source Oral Pulse Oximetry (%) 98 Oxygen Delivery Method Room Air Intake Visit Reasons: EP-UTI Intake Note: pt is here for dysuria since tuesday night Patient Tobacco Use Status: Never used Tobacco Allergies No Known Allergies (No Known Allergies*) Allergy (Verified 03/18/25 15:12) Do you need a note to return to daycare/school/sports/work: No HPI HPI Comments History of Present Illness Details History - The patient is a 64-year-old female presenting with symptoms suggestive of a urinary tract infection. - Symptoms began suddenly on Tuesday night, including urinary urgency and difficulty urinating. - Hematuria was noted, with no recent history of urinary tract infections. - No fever, abdominal pain, nausea, or vomiting were reported. - The patient used an ehao-awh-qyqhkrg UTI medication from [facility]. - She denies chills, CP, SOB, abd pain, back pain, or stones. Physical Exam General: Cooperative, healthy appearing, comfortable, no acute distress and well developed Cardiac: Normal S1 and S2. RRR, no M/R/G noted. Respiratory: Normal respiratory effort and able to speak in complete sentences. Clear to auscultation bilaterally. No w/r/r noted. Skin: No rashes or lesions noted. GI: Normal inspection. Normal BS noted. Soft, non-tender, non-distended. No TTP of all 4 quadrants. No guarding or rebound tenderness noted. Back: Negative CVA bilaterally Patient was informed and verbally consented to the use of an ambient scribe for clinic note documentation during this visit. [facility] Medical History Stress incontinence GERD (gastroesophageal reflux disease) Depression Anxiety Asthma HTN (hypertension) Surgical History History of colonoscopy (~07/21/12) Total knee replacement status History of suburethral sling procedure History of appendectomy History of endometrial ablation Family History Mother No problems noted. Father No problems noted. 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 Gender identity: Female Cognitive needs: No Hearing needs: No Vision needs: Yes (rx glasses) Female Reproductive History Menstrual Age of Menarche: 14 Review of Systems Const All systems reviewed & are unremarkable except as noted in HPI and below Physical Exam Vital Signs: Last Vital Signs Temp 97.9 F 03/18/25 15:12 Pulse 74 03/18/25 15:12 BP 126/80 03/18/25 15:12 Pulse Ox 98 03/18/25 15:12 Oxygen Delivery Method Room Air 03/18/25 15:12 BMI result Body Mass Index 34.3 Results AMB Urinalysis, Automated UA Leukoctes 500 Tr/uL Last Edit by Elías Green CMA on 03/18/25 15:30 UA Nitrite Positive Last Edit by Elías Green CMA on 03/18/25 15:30 UA Urobilinogen 0.2 mg/dL Last Edit by Elías Green CMA on 03/18/25 15:30 UA Protein 15 mg/dL Last Edit by Elías Green CMA on 03/18/25 15:30 UA pH 6.0 Last Edit by Elías Green CMA on 03/18/25 15:30 UA Blood 200 Олег/uL Last Edit by Elías Green CMA on 03/18/25 15:30 UA Specific Purmela 1.015 Last Edit by Elías Green CMA on 03/18/25 15:30 UA Ketone Negative Last Edit by Elías Green CMA on 03/18/25 15:30 UA Bilirubin 0 mg/dL Last Edit by Elías Green CMA on 03/18/25 15:30 UA Glucose 0 mg/dL Last Edit by Elías Green CMA on 03/18/25 15:30 Results Reviewed Results Reviewed: Laboratory Last Values Urine pH (Auto) 6.0 03/18/25 15:28 Specific Purmela (Auto) 1.015 03/18/25 15:28 Urine Protein (Auto) 15 mg/dL 03/18/25 15:28 Glucose (UA)(Auto) 0 mg/dL 03/18/25 15:28 Urine Ketones (Auto) Negative 03/18/25 15:28 Urine Blood (Auto) 200 Олег/uL 03/18/25 15:28 Urine Nitrite (Auto) Positive 03/18/25 15:28 Urine Bilirubin (Auto) 0 mg/dL 03/18/25 15:28 Urine Urobilinogen (Auto) 0.2 mg/dL 03/18/25 15:28 Leukocyte Esterase (Auto) 500 Tr/uL 03/18/25 15:28 Assessment & Plan Assessment & Plan (1) Dysuria: Code(s): R30.0 - Dysuria Plan Most likely UTI UA 3+ leuko, +nit, +pro, 3+blood plan - Antibiotic therapy will be initiated for the urinary tract infection, with a prescription sent to the pharmacy. - pyridium TID as needed for pain - tylenol or motrin as needed - drink lots of fluids - will order a urine culture and call with the results - can adjust the treatment based on the UC results - follow up with PCP Orders: Orders AMB Urinalysis Automated Today Z13.9 - Encounter for screening, unspecified Urine Culture Today N39.0 - Urinary tract infection, site not specified Medications: New phenazopyridine 100 mg PO tid PRN 6 tabs 0RF Pain cefuroxime axetil 500 mg PO Q12H 10 tabs 0RF Coding Level of Care Code Est Pt Level 3 (36850) Diagnoses Dysuria R30.0
--- OUTSIDE RECORDS SUMMARY | 2025-03-18 15:11 | XMS_ITS | Data Portability ---
Author Organization [facility] Brian Perez AONE [place] Address [address] [place] [address] Care Team Providers Care Wooden Furniture Polisher Name Role Phone JUAN LUIS ZUNIGA Primary Care Provider [phone] Assessment Encounter Date Assessment Date Assessment LastModified [...] more view 2022 023 [email or web address] [facility], [address], [place], [address], 3 12:06:13 XR, knee, 4 or more view 2022 023 [email or web address] [facility], [address], [place], [address], 3 12:06:13 Medication Orders Kenalog 40 mg/mL suspension for injection 2023 024 [email or web address] [id number], [address] [place], [address], 4 08:25:40 lidocaine (PF) 10 mg/mL (1 %) injection solution 2023 024 [email or web address] Not available 4 08:58:03 Kenalog 40 mg/mL suspension for injection 2022 023 [email or web address] [id number], [address] [place], [address], 3 14:42:37 lidocaine (PF) 10 mg/mL (1 %) injection solution 2022 023 [email or web address] [id number], [address] [place], [address], 3 14:42:37 Patient TargetsNo targets recorded. Patient Instructions Encounter Date Encounter Id Patient Instructions Last Modified By Organization Details Last Modified Time 03/23/2023 [id number] Left knee x-ray moderate degenerative change overall [...] Name and Address Organization Details Recorded Time Arthritis of right knee joint 55970233853 07163 Active 2020 Arthritis of knee, right Not Available Formerly [facility] 5 00:41:04 Chronic pain following right total knee arthropla sty 34976928912 327436 Active 2022 DAPHNEY BALDERAS PA-C [address], [place], [address] , [place] [facility] 3 09:53:04 Osteoarth ritis of right hip joint 28232005998 9107 Active 2022 DAPHNEY BALDERAS PA-C [address], [place], [address] , [place] [facility] 3 10:05:26 Chronic low back pain 671247547 Active 2022 DAPHNEY BALDERAS PA-C [address], [place], [address] , [place] [facility] 3 16:33:54 Effusion of joint 079202647 Active 2022 DAPHNEY BALDERAS PA-C [address], [place], [address] , [place] [facility] 3 16:15:39 Pain of right knee joint 47490567717 4100 Active 2022 Marino Aguero MD [address], [place], [address] , [place] [facility] 3 11:09:13 Pain of left knee joint 60689660352 4107 Active 2023 DAPHNEY BALDERAS PA-C [address], [place], [address] , [place] [facility] 4 08:18:09 Problem Notes None recorded. Procedures Surgical History Date Name Laterality Status Provider Name and Address Organization Details Recorded Time 07/28/2023 Knee Joint/Burs a Asp & Inj completed DAPHNEY BALDERAS PA-C [address], [place], [address], [place] [facility] 07/29/2023 08:18:06 04/06/2023 Knee Joint/Burs a Asp & Inj completed DAPHNEY BALDERAS PA-C [address] [facility] [address], , [address], [place] [facility] 04/06/2023 16:15:13 03/23/2023 Knee Joint/Burs a Asp & Inj completed DAPHNEY BALDERAS PA-C [address] [facility] [address], , [address], [place] [facility] 03/24/2023 08:20:47 Imaging Results None recorded. Procedure Notes None recorded. Medical Equipment None Reported. Allergies No known drug allergies Medications Name Sig Start Date Stop Date Status Note LastModified by Organization Details LastModified Time celecoxib 200 mg capsule Take 1 capsule (200 mg total) by mouth daily. 2021 active Not Available Not Available Not Avai lable lidocaine 4 % topical patch Apply 1 [...] completed Not Available Not Available Not Available bupivacaine HCl 0.5 % (5 mg/mL) injection solution 04/27 completed Not Available Not Available Not Available terazosin 1 mg capsule TAKE 1 TAB (1 MG) BY MOUTH BEDTIME 2020 active Not Available Not Available Not Avai lable amoxicillin 500 mg tablet TAKE 4 TABS [...] No t Available irbesartan 75 mg tablet Take 75 mg by mouth every night at bedtime. active Not Available Not Available No t Available amoxicillin 250 mg capsule TAKE 1 BY MOUTH EVERY 8 HOURS FOR 10 DAYS 09/20 completed Not Available Not Available Not Available montelukast 10 mg tablet Take 10 mg by mouth daily. 2020 active Not Available Not Available Not Normai lable warfarin 1 mg tablet Take 5 tabs daily or as directed by physician 08/13 completed Not Available Not Available Not Available albuterol sulfate HFA 90 mcg/actuati on aerosol inhaler INHALE 2 PUFFS INTO THE LUNGS USING INHALER EVERY 4 HOURS NEEDED active Not Available Not Available No t Available oxycodone 5 mg tablet Take 1-2 tabs every 6 hours as needed for pain 05/21 completed Not Available Not Available Not Available bupropion HCl XL 300 mg 24 [...] Not Available Not Available Not Avai lable hylan g-f 20 48 mg/6 mL intra-artic ular syringe 04/27 completed Not Available Not Available Not Available Paxlovid 300 mg (150 mg x 2)-100 mg tablets in a dose pack PER PCKG DIRECTION S 09/20 completed Not Available Not Available Not Available Vitals Date Recorded Body weight Body mass index (BMI) Body height Provider Name and Address Organization Details Last Updated DateTime 12/10/2022 38681.17 g 34.4 kg/m2 167.[address] [place] [facility] 12/10/2022 10:13:24 Date Recorded Body height Provider Name an d Address Organization Details Last Updated DateTime 03/23/2023 [address] [place] [facility] 03/23/2023 14:07:34 Date Recorded Body height Body mass index (BMI) Body weight Provider Name and Address Organization Details Last Updated DateTime 05/06/2023 167.64 cm 34.4 kg/m2 98801.[address] [place] [facility] 05/06/2023 10:43:42 Social History None recorded. Functional Status Question Answer Note LastModified by Organizat ion Details LastModified Time Do you use any illicit or recreational drugs? No [email or web address] Information not available 09/20/2022 Do you or have you ever used any other forms of tobacco or nicotine? No [email or web address] Information not available 09/20/2022 What is your level of alcohol consumption? None [email or web address] Information not available 09/20/2022 Mental Status None recorded. Family History Relationship Description Onset Age of this Age Resolved Age Notes LastModified by Organization Details LastModified Time Mother Hypertensive disorder [email or web address] Not available 09:14:55 Medical History Condition Response Hypertension Y Asthma Y Gynecological HistoryNo gynecological history recorded. Obstetrics History GPAL:G 0 P 0 0 0 0 Past Encounters Encounter ID Performer Location Encounter Start Date Encounter Closed Date Diagnosis/Indication Diagnosis SNOMED-CT Code Diagnosis ICD10 Code Diagnosis IMO Codes Diagnosis Note [id number] MALATHI REEVES [address] [facility] [address] [place] [address] 09/20/2022 08:51:15 09/20/2022 10:05:07 History of right total knee replacement 1122673391 185349 Z96.651 Pain of ri ght hip joint 4841626636 05693 M25.551 Chronic pa in following right total knee arthroplasty 5051357546 3335761 T84.84XD Osteoarthr itis of right hip joint 0290429507 40412 M16.11 [id number] MALATHI REEVES [address] [facility] [address] [place] [address] 10/06/2022 15:37:18 10/06/2022 16:02:05 Chronic low back pain 878456561 M54.50 [id number] MD ASHA Puentes [address] [facility] [address] [place] [address] 12/10/2022 09:54:03 12/10/2022 10:37:11 Osteoarthritis of left knee joint 0444436671 14485 M17.12 Osteoarthr itis of right knee joint 9941418484 45965 M17.11 [id number] MALATHI REEVES [facility] [address] [facility] [address] [place] [address] 03/23/2023 13:35:00 03/23/2023 14:49:57 History of right total knee replacement 6682697092 922571 Z96.651 Pain of le ft knee joint 1592110788 94821 M25.562 Chronic pa in following right total knee arthroplasty 1550456625 2223581 T84.84XD [id number] MALATHI REEVES [facility] [address] [facility] [address] [place] [address] 04/06/2023 15:27:54 04/06/2023 15:56:31 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 2348732270 1889472 T84.84XD Effusion of joint 757760 008 M25.40 M25.461 Synovasure sent off [id number] MD ASHA Puentes [facility] [address] [facility] [address] [place] [address] 05/06/2023 10:16:44 05/06/2023 11:14:48 Pain of right knee joint 2099297176 44319 M25.561 Chronic pa in following right total knee arthroplasty 2303451748 9333839 T84.84XD [id number] [facility] [address] [facility] [address] [place] [address] 07/28/2023 11:02:47 07/28/2023 11:31:59 Pain of left knee joint 5456111816 62810 M25.562 Health Concerns Section Related Observation LastModified by Organization Detai ls LastModified Time None Recorded Concern Status LastModified by Organization Details LastModified Time None Recorded Advance Directives Directive None Recorded Payers Insurance Date Sequence Insurance Name Policy Number Policy Moreno Covered Member ID Moreno Member ID Guarantor Name 01/09/2024 1 [facility] Joana Javier [id number] Joana Javier Notes Date Note Type [...] injection, knee, viscosupplement (PROC) DAPHNEY BALDERAS PA-C [address] [place] [address], [address], [place] [facility] 03/24/2023 08:23:45 3 text/html Prior Visit Dr. Louessment/Plan: 3Patient has some baseline pain following right [...] right knee joint. DAPHNEY BALDERAS PA-C [address] [facility] [address], , [address], [place] [facility] 04/07/2023 07:33:31 4 text/html Pleasant 62-year-old female degenerative joint disease of the left knee gets good relief with cortisone injections. Is been greater than 3 months since her last cortisone injection. Pain is medial nature gets worse with walking. She is DAPHNEY BALDERAS PA-C [address] [facility] [address], , [address], [place] [facility] 07/29/2023 08:26:04 OBGyn Episode No OBEpisode recorded.
--- OUTSIDE RECORDS SUMMARY | 2025-03-18 15:11 | XMS_ITS | Clinical Summary ---
Author Organization [facility] Address [address] [place], [place] [id number] Care Team Providers Care Mining Engineer Name Role Phone Sehrif Valentine MD Primary Care Provider [phone] Allergies Active Allergy Reactions Criticality Noted Date [...] age to complete this topic Care Teams Mining Engineer Relationship Specialty Start Date End Date Sherif Valentine MD [address] [place] [address] [place] [address] PCP - General Crucible Furnace Tender 01/16/21
--- OUTSIDE RECORDS SUMMARY | 2025-03-18 15:11 | XMS_ITS | Patient Health Record ---
Author Organization [facility] Address [address] [place] [address] Care Team Providers Care Waterproof Bag Sewer Name Role Phone Serge (RETIRED) Sherif HENDRICKSON Primary Care Provide r Unavailable Jesica Toney Unavailable [phone] Reason For Referral No Information Medications Medication SIG (Take, Route, Fr equency, Duration) Notes Start Date End Date Status Wellbutrin Active MoviPrep 100 GM as directed Orally o nce; Duration: 1 dose 02/22/2012 Active Problems Problem Type SNOMED Code ICD Code Onset Dates Problem Status W/U Status Risk Notes Problem Colon cancer screening (164144333) Colon cancer screening (V76.51) Active confirmed Plan Of Treatment Future Test Test Name Order Date COLONOSCOPY 02/22/2012 Insurance Providers Payer Name Payer Address Payer Phone Subscriber Number Group Number Insured Name Patient Relationship to Insured Coverage Start Date Coverage End Date [facility] [address] [place], [place] [id number] RAJENDRA BERRY Self - patient is the insured Medical (General) History Medical History History ICD Code 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
--- OUTSIDE RECORDS SUMMARY | 2025-03-18 15:11 | XMS_ITS | Clinical Summary ---
Author Organization [facility] it Address [address] [place] [address] Care Team Providers Care Board Hammer Operator Name Role Phone Sherif Valentine MD Primary Care Provider [phone] Medical History Medical History Date Comments Asthma [...] Last Done Comments Breast Cancer Screening 1961 Colorectal Cancer Screening: Colonoscopy 1961 DTaP,Tdap,and Td Vaccines (1 - Tdap) 1980 Cervical Cancer Screening: P ap Smear 1982 Pneumococcal Vaccine: 50+ Ye ars (1 of 1 - PCV) 12/14/2011 Zoster Vaccines (1 of 2) 12/14/2011 HIV Screening 05/09/2022 Hepatitis C Screening 05/09/2022 [...] Documents on File Type Date Recorded 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
[2025-03-18 15:12] VITALS: BP 126/80; PULSE 74; TEMP 36.6; O2SAT 98; BMI 34.3
== END 2025-03-18 15:56 | disposition home or self-care (01) ==
PROVIDERS: PCP Internal Medicine; Visit Provider Physician Assistant Medical
DX: R30.0 Dysuria (principal); Z13.9 Encounter for screening, unspecified

== ENCOUNTER 2025-03-18 15:08 | Outpatient (REF) | payer OTHER, SELFPAY | END 2025-03-18 15:09 | disposition home or self-care (01) | LOC: HO.LNP 15:08 | PROVIDERS: PCP Internal Medicine; Visit Provider Physician Assistant Medical | DX: R30.0 Dysuria (principal); Z13.89 Encounter for screening for other disorder | CPT/HCPCS: 81003; 87086; 87088; 87186 ==

== ENCOUNTER → 2025-04-12 15:27 | Outpatient (AMB) | payer OTHER, SELFPAY ==
--- NOTE | 2025-04-12 15:32 | A.OFFPC_ITS ---
Vital Signs 04/12/25 15:33 04/12/25 16:10 Height 5 ft 4 in Weight 91.172 kg BMI 34.5 BP 124/80 Blood Pressure Location Lt brachial Position Sitting Pulse 120 H 80 Pulse Source Pulse Oximeter Temp 98 F Temp Source Temporal Artery Scan Pulse Oximetry (%) 98 Oxygen Delivery Method Room Air Intake Visit Reasons: 6 Month F/U - see comments Insurance Collector Required: No Accompanied by: Self / Same As Patient Allergies No Known Allergies (No Known Allergies*) Allergy (Verified 04/12/25 15:34) Medication List - Last Reconciled 04/12/25 by RENU Ladd albuterol sulfate 90 mcg/actuation 2 puffs inhalation Q4H PRN bupropion HCl XL 300 mg PO DAILY gabapentin 300 mg PO BEDTIME irbesartan 75 mg PO DAILY lorazepam 0.5 mg PO BEDTIME PRN meloxicam 15 mg PO DAILY PRN omeprazole 20 mg PO DAILY Tobacco use date assessed: 04/12/25 Dental Screening Dental Screen Date: 04/12/25 Did you have a dental visit in the last 12 months?: Yes Did you have a dental problem in the last 6 months where you did not have access to dental care?: No HPI HPI Comments History of Present Illness Details 64-year-old female with history of hyper tension, asthma, anxiety/depression, GERD, stress incontinence presenting to the office today for management of chronic conditions. Hypertension-blood pressure 124/80. On irbesartan 75 mg Mild intermittent asthma-no recent exacerbation. Albuterol PRN Depression/anxiety-reports stable overall. No SI/HI. On bupropion 300 mg XL, lorazepam PRN at bedtime. GERD-ppi Concerns: LBP/R low back- ongoing several years. No injury. Worsens as day goes on. 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 Stretching back does help. Heat helps, gabapentin helps at night. Takes meloxicam. No radiation, but has neuropathy. Reports she fell directly on her face January 2020. Face CT at that time was negative for any osseous abnormality but did show gentle disease. Initially she was experiencing numbness on the right side of the face which has resolved except for an area of numbness of the upper lip. She also has significant discomfort above the 2 front teeth. She had seen a dentist who performed 3 root canals but pain has worsened. She is able to eat and drink but has to modify her foods. Health maintenance: pap 04/2023 FH colon cancer. Due for colonoscopy Mammogram 09/2024, no evidence of malignancy Fell on face Jan 2024. Lips and teeth still hurt. Upper lip is numb. difficulty sleeping. dentist root cancals. breas up food. ROS: see hpi EXAM: Constitutional - Awake and Alert, No apparent distress Eyes - PERRL Cardiovascular - S1S2, RRR, No edema Respiratory - Normal lung expansion, Normal respiratory effort, No respiratory distress, CTA bilaterally Extremities - no calf tenderness bilaterally, no swelling Skin - Warm/Dry Neurological - Alert & oriented x3 Psychological - Appropriate affect [facility] Medical History Stress incontinence GERD (gastroesophageal reflux disease) Depression Anxiety Asthma HTN (hypertension) Surgical History History of colonoscopy (~07/21/12) Total knee replacement status History of suburethral sling procedure History of appendectomy History of endometrial ablation Family History Mother No problems noted. Father No problems noted. 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 Gender identity: Female Cognitive needs: No Hearing needs: No Vision needs: Yes (rx glasses) Female Reproductive History Menstrual Age of Menarche: 14 Questionnaire PHQ-9 Over the last 2 weeks, how often have you been bothered by any of the following problems? 1. Little interest or pleasure in doing things: not at all 2. Feeling down, depressed, or hopeless: several days 3. Trouble falling or staying asleep, or sleeping too much: not at all 4. Feeling tired or having little energy: nearly every day (tired everyday) 5. Poor appetite or overeating: not at all 6. Feeling bad about yourself - or that you are a failure or have let yourself or your family down: not at all 7. Trouble concentrating on things, such as reading the newspaper or watching television: not at all 8. Moving or speaking so slowly that other people could have noticed. Or the opposite - being so fidgety or restless that you have been moving around a lot more than usual: not at all 9. Thoughts that you would be better off or of hurting yourself in some way: not at all Total score: 4 Source: Developed by Drs. Toney Simental, Marianela Madden, Britton Arambula and colleagues, with an educational princess from [employer]. Thrive Questionnaire Date Thrive assessed: 04/12/25 I am a: Patient Within the past 12 months, did the food you bought not last and you didn't have the money to get more?: Never true Within the past 12 months, did you worry whether your food would run out before you got money to buy more?: Never true Do you have trouble paying for medicines?: No Do you have trouble getting transportation to medical appointments?: No Do you have trouble paying your heating and electricity bill?: No Do you have trouble taking care of your child, family member or friend?: No Do you have trouble with day-to-day activities such as bathing, preparing meals, shopping, managing finances, etc.?: No Are you currently unemployed and looking for a job?: No Are you interested in more education?: No THRIVE Score: 0 AUDIT C Alcohol Use Questionnaire (AUDIT-C) 1. How often do you have a drink containing alcohol?: Never 3. How often do you have six or more drinks on one occasion?: Never Total Score: 0 JOVAN-7 AMB Questionnaire JOVAN-7 Date JOVAN - 7 assessed: 04/12/25 Feeling nervous, anxious, or on edge: 1 = Several days Not being able to stop or control worryin = Not at all Worrying too much about different things: 0 = Not at all Trouble relaxin = Not at all Being so restless that it is hard to sit still: 0 = Not at all Becoming easily annoyed or irritable: 0 = Not at all Feeling afraid as if something awful might happen: 0 = Not at all Total JOVAN-7 score (0-4 normal; 5-9 mild; 10-14 moderate; 15-21 severe): 1 Source: Developed by DrsRobert Simental, Marianela Madden, Britton Arambula and colleagues, with an educational princess from [employer]. Physical exam (Primary Care) Vital Signs: Last Vital Signs Temp 98 F 04/12/25 15:33 Pulse 80 04/12/25 16:10 BP 124/80 04/12/25 15:33 Pulse Ox 98 04/12/25 15:33 Oxygen Delivery Method Room Air 04/12/25 15:33 BMI result Body Mass Index 34.5 Tobacco/Smoking Status: Tobacco use Status Tobacco use date assessed 04/12/25 04/12/25 15:35 Patient Tobacco Use Status Never used Tobacco 04/12/25 15:35 e-Cigarette/Vaping Use Never Used 04/12/25 15:35 PHQ-9: PHQ-9 Score PHQ-9: Total score 4 04/12/25 16:12 Thrive Assessment: Date of Thrive Assessment Date Thrive assessed 04/12/25 04/12/25 15:35 Coding Level of Care Code Est Pt Level 4 (98138) Complex EM visit Add On G2211 Diagnoses HTN (hypertension) I10 Depression F32.9 Asthma J45.909 Lip numbness R20.0 Chronic low back pain M54.50; G89.29 Assessment & Plan Assessment & Plan (1) HTN (hypertension): Code(s): I10 - Essential (primary) hypertension Category: Medical Plan: Controlled. Continue current therapies (2) Depression: Code(s): F32.9 - Major depressive disorder, single episode, unspecified Category: Medical Plan: Stable. Continue with Wellbutrin and lorazepam p.r.n. at bedtime (3) Asthma: Code(s): J45.909 - Unspecified asthma, uncomplicated Category: Medical Plan: Stable. No exacerbation. Albuterol PRN (4) Lip numbness: Code(s): R20.0 - Anesthesia of skin Category: Medical Plan: Referred to neurology for further assessment. Continue with food modifications (5) Chronic low back pain: Code(s): M54.50 - Low back pain, unspecified; G89.29 - Other chronic pain Category: Medical Plan: Can use meloxicam and gabapentin. She does have muscle relaxers at home which he is advised that she can use but to monitor for sedation. Recommend ice and gentle [id number]-[id number] exercises. Advised to be mindful of posture. Desires cortisone injection, referral placed Plan Follow-up in the office in 6 months. Labs as ordered. Referred for colonoscopy Orders: Orders Basic Metabolic Panel Today F32.9 - Major depressive disorder, single episode, unspecified, I10 - Essential (primary) hypertension, K21.9 - Gastro-esophageal reflux disease without esophagitis, Z13.1 - Encounter for screening for diabetes mellitus Lipid Panel Today F32.9 - Major depressive disorder, single episode, unspecified, I10 - Essential (primary) hypertension, K21.9 - Gastro-esophageal reflux disease without esophagitis, Z13.1 - Encounter for screening for diabetes mellitus Hemoglobin A1c Today F32.9 - Major depressive disorder, single episode, unspecified, I10 - Essential (primary) hypertension, K21.9 - Gastro-esophageal reflux disease without esophagitis, Z13.1 - Encounter for screening for diabetes mellitus Liver Panel Today F32.9 - Major depressive disorder, single episode, unspecified, I10 - Essential (primary) hypertension, K21.9 - Gastro-esophageal reflux disease without esophagitis, Z13.1 - Encounter for screening for diabetes mellitus Vitamin D 25-OH Total Today F32.9 - Major depressive disorder, single episode, unspecified, I10 - Essential (primary) hypertension, K21.9 - Gastro-esophageal reflux disease without esophagitis, Z13.1 - Encounter for screening for diabetes mellitus Referrals Orthopedics Referral G89.29 - Other chronic pain, M54.50 - Low back pain, unspecified Neurology Referral R20.0 - Anesthesia of skin Gastroenterology Referral Z12.11 - Encounter for screening for malignant neoplasm of colon, Z80.0 - Family history of malignant neoplasm of digestive organs
[2025-04-12 15:33] VITALS: BP 124/80; PULSE 120; TEMP 36.6; O2SAT 98; BMI 34.5
[2025-04-12 16:10] VITALS: PULSE 80
--- OUTSIDE RECORDS SUMMARY | 2025-04-12 16:34 | XMS_ITS | Clinical Summary ---
Author Organization [facility] Address [address] [place], [place] [id number] Care Team Providers Care Director Pharmaceutical Name Role Phone Sherif Valentine MD Primary [...] to complete this topic Care Teams Director Pharmaceutical Relationship Specialty Start Date End Date Sherif Valentine MD [address] [place] [address] [place] [id number] PCP - General Butter Fat Tester 01/16/21
--- OUTSIDE RECORDS SUMMARY | 2025-04-12 16:35 | XMS_ITS | Data Portability ---
Author Organization [facility] Brian Perez AONE [facility] Address [address] [place] [address] Care Team Providers Care Receptionist Telephone Operator Name Role Phone JUAN LUIS ZUNIGA [...] more view 2022 023 [email or web address] [facility], [address], [place], [address], 3 12:06:13 XR, knee, 4 or more view 2022 023 [email or web address] [facility], [address], [place], [address], 3 12:06:13 Medication Orders Kenalog 40 mg/mL suspension for injection 2023 024 [email or web address] [id number], [address] [place], [address], 4 08:25:40 lidocaine (PF) 10 mg/mL (1 %) injection solution 2023 024 [email or web address] Not available 4 08:58:03 Kenalog 40 mg/mL suspension for injection 2022 023 [email or web address] [id number], [address] [place], [address], 3 14:42:37 lidocaine (PF) 10 mg/mL (1 %) injection solution 2022 023 [email or web address] [id number], [address] [place], [address], 3 14:42:37 Patient TargetsNo targets recorded. 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 10741919625 687186 Active 2022 DAPHNEY BALDERAS PA-C [address], [place], [address] , [place] [facility] 3 09:53:04 Osteoarth ritis of right hip joint 83090916464 9107 Active 2022 DAPHNEY BALDERAS PA-C [address], [place], [address] , [place] [facility] 3 10:05:26 Chronic low back pain 792740764 Active 2022 DAPHNEY BALDERAS PA-C [address], [place], [address] , [place] [facility] 3 16:33:54 Effusion of joint 715337622 Active 2022 DAPHNEY BALDERAS PA-C [address], [place], [address] , [place] [facility] 3 16:15:39 Pain of right knee joint 77819244510 4100 Active 2022 Marino Aguero MD [address], [place], [address] , [place] [facility] 3 11:09:13 Pain of left knee joint 32053957945 4107 Active 2023 DAPHNEY BALDERAS PA-C [address], [place], [address] , [place] [facility] 4 08:18:09 Problem Notes None recorded. Procedures Surgical History Date Name Laterality Status Provider Name and Address Organization Details Recorded Time 07/28/2023 Knee Joint/Burs a Asp & Inj completed DAPHNEY BALDERAS PA-C [address], [place], [address], [place] [facility] 07/29/2023 08:18:06 04/06/2023 Knee Joint/Burs a Asp & Inj completed DAPHNEY BALDERAS PA-C [address] [facility] [address], [place], [address], [place] [facility] 04/06/2023 16:15:13 03/23/2023 Knee Joint/Burs a Asp & Inj completed DAPHNEY BALDERAS PA-C [address] [facility] [address], [place], [address], [place] [facility] 03/24/2023 08:20:47 Imaging Results None recorded. [...] Address Organization Details Last Updated DateTime 12/10/2022 87372.17 g 34.4 kg/m2 167.[address] [place] [facility] 12/10/2022 10:13:24 Date Recorded Body height Provider Name an d Address Organization Details Last Updated DateTime 03/23/2023 [address] [place] [facility] 03/23/2023 14:07:34 Date Recorded Body height Body mass index (BMI) Body weight Provider Name and Address Organization Details Last Updated DateTime 05/06/2023 167.64 cm 34.4 kg/m2 03849.[address] [facility] 05/06/2023 10:43:42 Social History None recorded. Functional Status Question Answer Note LastModified by Organizat ion Details LastModified Time Do you use any illicit or recreational drugs? No Information not available 09/20/2022 Do you or have you ever used any other forms of tobacco or nicotine? No [email or web address] Information not available 09/20/2022 What is your level of alcohol consumption? None [email or web address] Information not available 09/20/2022 Mental Status None recorded. Family History Relationship Description Onset Age of this Age Resolved Age Notes LastModified by Organization Details LastModified Time Mother Hypertensive disorder Not available 09:14:55 Medical History Condition Response Hypertension Y Asthma Y Gynecological HistoryNo gynecological history recorded. Obstetrics History GPAL:G 0 P 0 0 0 0 Past Encounters Encounter ID Performer Location Encounter Start Date Encounter Closed Date Diagnosis/Indication Diagnosis SNOMED-CT Code Diagnosis ICD10 Code Diagnosis IMO Codes Diagnosis Note [id number] MALATHI REEVES [address] [facility] [address] [place] [address] 09/20/2022 08:51:15 09/20/2022 10:05:07 History of right total knee replacement 1957631386 605312 Z96.651 Pain of ri ght hip joint 3605460123 27856 M25.551 Chronic pa in following right total knee arthroplasty 3263106032 0276860 T84.84XD Osteoarthr itis of right hip joint 9857829402 94921 M16.11 [id number] MALATHI REEVES [address] [facility] [address] [place] [address] 10/06/2022 15:37:18 10/06/2022 16:02:05 Chronic low back pain 458556600 M54.50 [id number] MD ASHA Puentes [address] [facility] [address] [place] [address] 12/10/2022 09:54:03 12/10/2022 10:37:11 Osteoarthritis of left knee joint 1435011140 61086 M17.12 Osteoarthr itis of right knee joint 1864971619 44739 M17.11 [id number] MALATHI REEVES [facility] [address] [facility] [address] [place] [address] 03/23/2023 13:35:00 03/23/2023 14:49:57 History of right total knee replacement 3402687019 126079 Z96.651 Pain of le ft knee joint 1247444953 17382 M25.562 Chronic pa in following right total knee arthroplasty 7357164938 8960858 T84.84XD [id number] MALATHI REEVES [facility] [address] [facility] [address] [place] [address] 04/06/2023 15:27:54 04/06/2023 15:56:31 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 4630080400 6350223 T84.84XD Effusion of joint 926490 008 M25.40 M25.461 Synovasure sent off [id number] MD ASHA Puentes [facility] [address] [facility] [address] [place] [address] 05/06/2023 10:16:44 05/06/2023 11:14:48 Pain of right knee joint 8394030235 68206 M25.561 Chronic pa in following right total knee arthroplasty 3561076245 3059661 T84.84XD [id number] [address] [facility] [address] [place] [address] 07/28/2023 11:02:47 07/28/2023 11:31:59 Pain of left knee joint 4221517344 77392 M25.562 Health Concerns Section Related Observation LastModified by Organization Detai ls LastModified Time None Recorded Concern Status LastModified by Organization Details LastModified Time None Recorded Advance Directives Directive None Recorded Payers Insurance Date Sequence Insurance Name Policy Number Policy Moreno Covered Member ID Moreno Member ID Guarantor Name 01/09/2024 1 [facility] Joana Javier [id number] 1 Joana Javier Notes Date Note Type [...] injection, knee, viscosupplement (PROC) DAPHNEY BALDERAS PA-C [address] [place] [address], [address], [place] [facility] 03/24/2023 08:23:45 3 text/html Prior Visit [...] right knee joint. DAPHNEY BALDERAS PA-C [address] [facility] [address], [place], [address], [place] [facility] 04/07/2023 07:33:31 4 text/html Pleasant 62-year-old female degenerative joint disease of the left knee gets good relief with cortisone injections. Is been greater than 3 months since her last cortisone injection. Pain is medial nature gets worse with walking. She is DAPHNEY BALDERAS PA-C [address] [facility] [address], [place], [address], [place] [facility] 07/29/2023 08:26:04 OBGyn Episode No OBEpisode recorded.
== END ==
LOC: HO.HMCHD 15:28
PROVIDERS: PCP Internal Medicine; Visit Provider Physician Assistant
DX: I10 Essential (primary) hypertension (principal); F32.9 Major depressive disorder, single episode, unspecified; J45.909 Unspecified asthma, uncomplicated; R20.0 Anesthesia of skin; M54.50 Low back pain, unspecified; G89.29 Other chronic pain

== ENCOUNTER 2025-05-21 11:01 | Outpatient (AMB) | payer OTHER, SELFPAY ==
--- NOTE | 2025-05-21 11:03 | A.OFFVIS_ITS ---
Vital Signs 05/21/25 11:06 Height 5 ft 4 in Weight 193 lb BMI 33.1 Intake Visit Reasons: INJ- LT knee inj- last inj 02/19/25 Intake Note: Joana is a 64 year old female who presents with complaints of left knee pain. She describes her knee pain as sharp in nature. She has tried Tylenol and anti- inflammatory medicines which gave her mild relief. She has had cortisone injections in the past which have given her fairly good relief. She wishes to hold off on surgery if at all possible. Allergies No Known Allergies (No Known Allergies*) Allergy (Verified 04/12/25 15:34) Medication List - Last Reconciled 05/21/25 by Nicolas Medley MD albuterol sulfate 90 mcg/actuation 2 puffs inhalation Q4H PRN bupropion HCl XL 300 mg PO DAILY gabapentin 300 mg PO BEDTIME irbesartan 75 mg PO DAILY lorazepam 0.5 mg PO BEDTIME PRN meloxicam 15 mg PO DAILY PRN omeprazole 20 mg PO DAILY PFSH Medical History Stress incontinence GERD (gastroesophageal reflux disease) Depression Anxiety Asthma HTN (hypertension) Surgical History History of colonoscopy (~07/21/12) Total knee replacement status History of suburethral sling procedure History of appendectomy History of endometrial ablation Family History Mother No problems noted. Father No problems noted. 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 Gender identity: Female Cognitive needs: No Hearing needs: No Vision needs: Yes (rx glasses) Female Reproductive History Menstrual Age of Menarche: 14 Physical Exam Vital Signs: BMI result Body Mass Index 33.1 Extrem Other: Left knee examination shows a minimal effusion, palpable crepitus with range of motion, pain with range of motion, no instability Office Procedures AMB Joint Injection/Aspiration Joint Injection/Aspiration Primary Site: Left Knee Prep: site was prepped using aseptic technique Injected: 40 mg of, DepoMedrol, with 3 mL of and 1% plain Lidocaine Procedure: The patient tolerated the procedure well Coding 38828 - Large joint Procedure code (CPT) selection complete Assessment & Plan Assessment & Plan (1) Arthritis of left knee: Code(s): M17.12 - Unilateral primary osteoarthritis, left knee Category: Medical Plan Ms. Javier presents with left knee pain due to degenerative joint disease. The risks and benefits of a left knee cortisone injection were discussed at length with the patient. The patient wished to proceed. She tolerated the injection well. She will continue with her home exercise program. She will contact me prior to her follow-up appointment in 3 months should any questions or concerns arise. Feel free to call me at any time should questions regarding her orthopedic management arise. I spent 22 minutes in reviewing the patient's records and imaging studies, seeing the patient and documenting in the medical record. Orders: Orders AMB Joint Injection/Aspiration 05/21/25 M17.12 - Unilateral primary osteoarthritis, left knee Coding Level of Care Code Est Pt Level 3 (68148) Add On Problem Visit Only Diagnoses Arthritis of left knee M17.12 CPT Codes Coding - 32769 Large joint: 10483 - Large joint ([id number])
[2025-05-21 11:06] VITALS: BMI 33.1
== END 2025-05-21 11:38 | disposition home or self-care (01) ==
LOC: HO.HOS 11:01
PROVIDERS: PCP Internal Medicine; Visit Provider Orthopaedic Surgery
DX: M17.12 Unilateral primary osteoarthritis, left knee (principal)
CPT/HCPCS: 20610; 99213

== ENCOUNTER → 2025-05-21 11:01 | Outpatient (BNVA) | payer OTHER, SELFPAY | PROVIDERS: PCP Internal Medicine; Visit Provider Orthopaedic Surgery | DX: M17.12 Unilateral primary osteoarthritis, left knee (principal) | CPT/HCPCS: 20610; J1010; J2003 ==